=== PATIENT | female | born 1995 | race Caucasian/White ===

== ENCOUNTER → 2019-07-07 | Emergency (ER) | payer SELFPAY | PROVIDERS: Emergency Provider Family Medicine; Visit Provider Family Medicine | DX: K59.00 Constipation, unspecified (principal); F17.210 Nicotine dependence, cigarettes, uncomplicated | CPT/HCPCS: 74018; 99283 ==

== ENCOUNTER 2019-09-13 10:54 | Emergency (ER) | payer MEDICAID, SELFPAY ==
[2019-09-13 11:11] VITALS: BP 151/100; RESP 16; TEMP 36.8; O2SAT 100; BMI 46.3
[2019-09-13 11:47] LABS: Bilirubin Urine Neg (NEGATIVE); Blood Urine Neg (Negative); Glucose Urine UA Norm (Normal); Ketones Urine Negative (Negative); Leukocyte Esterase Urine Negative (Negative); Nitrate Urine Negative (Negative); Protein Urine Neg (Negative); Urine Appearance Clear (CLEAR); Urine Color Yellow (Yellow); Urobilinogen Urine Norm (Negative); pH Urine 7 (5-7)
[2019-09-13 11:53] LABS: Add Urine Culture? No; Bacteria Urine TRACE; Squamous Epithelial Cell Urine 0-4 (0-5)
[2019-09-13 12:36] LABS: Basophils # 0.1 10^3/uL (0.0-0.1); Basophils % 0.4 %; Eosinophils # 0.4 10^3/uL (0.0-0.8); Eosinophils % 2.9 %; Hemoglobin 13.7 g/dL (11.5-15.3); Lymphocytes # 3.8 10^3/uL (0.8-4.8); Lymphocytes % 26.2 %; Mean Corpuscular HGB Conc 32.6 g/dL (30.0-36.0); Mean Corpuscular Volume 85.7 fL (81-99); Mean Platelet Volume 10.3 fL (7.4-10.4); Monocytes # 0.9 10^3/uL (0.2-0.9); Neutrophils # 9.4 10^3/uL (1.8-7.7); Neutrophils % 64.2 %; Nucleated Red Blood Cells % 0 %; Platelet Count 321 10^3/cmm (130-400); Red Cell Distribution Width 14.6 % (12.1-15.1); White Blood Count 14.6 10^3/uL (4.0-10.0)
--- NOTE | 2019-09-13 12:50 | ED_ITS ---
Entered by Aubree Mario, acting as scribe for Itzel Forde Pio Sep 13, 2019 10:54 HPI - Abdominal Pain General: Chief Complaint: Abdominal Pain Stated Complaint: ABD PAIN Time Seen by Provider: 09/13/19 12:49 Source: patient Mode of arrival: ambulatory Limitations: no limitations History of Present Illness: HPI narrative: 24 yo Female presents to ED with complaint of lower abdominal pain that radiates into her lower back and then up her back. Pt states that she has PCOS and just assumed it was her PCOS acting up. Pt states that laying down on her left side, putting a pillow between her knees, and having heat on her constantly is that only thing that gives her relief. Pt states that she believes was an abnormal period recently. Pt states that she has had to have surgery in the past for her PCOS. Pt states that she took some Tylenol before she came in so her pain isn't too bad right now but she came in because she is starting to miss work due to the pain. MD elicited complaint: abdominal pain Pertinent past history: other (PCOS) Onset (ago): week(s) (2) Pain Consistency: intermittent Location: RLQ and LLQ Pain scale (0-10): 4 Quality: stabbing, aching, sharp and dull Radiation: back Migration to: L flank and R flank Relieving factors: rest (laying on left side with pillow between knees) and other (applying heat) Context: history of similar episodes Associated Symptoms: Denies chills, coffee ground emesis, constipation, GI cramping, diarrhea, dysuria, fever(s), hematochezia, hematuria, hematemesis, melena, nausea, syncope and vomiting Related Data: Date of Last Menstrual Period: 08/14/19 Review of Systems General: Reports: other (negative unless marked) Const: Denies: fever, chills, body aches, fatigue, malaise or diaphoresis Eyes: Denies: change in vision or blurry vision ENMT: Denies: throat pain, painful swallowing, hoarseness, ear pain, ear discharge, Change in hearing or nasal discharge Card: Denies: chest pain, palpitations, irregular heart rhythm, syncope, pre- syncope, shortness of breath on exertion or shortness of breath when lying down Resp: Denies: shortness of breath, productive cough, non-productive cough, wheezing, coughing up blood or chest congestion GI: Reports: abdominal pain; Denies: nausea, vomiting, vomiting blood, coffee grounds in vomit, diarrhea, constipation, cramping, blood in stool or black tarry stool : Reports: flank pain and pelvic pain; Denies: painful urination, urinary frequency, urinary urgency, decreased urine ouput, urinary incontinence or blood in urine Musc: Denies: neck pain, back pain, extremity pain, extremity swelling, joint pain, joint swelling, joint warmth or joint stiffness Skin/Breast: Denies: rash, skin tenderness or yellow skin Neuro: Denies: headache, numbness in extremities, weakness in extremities, changes in sensation, lack of coordination, difficulty walking, dizziness, vertigo or confusion Endo: Denies: excessive thirst, tired all the time, cold intolerance, excessive sweating, flushing or hot flashes Ethan/Lymph: Denies: easy bruising, easy bleeding, petechiae or enlarged lymph nodes All/Imm: Denies: hives, throat swelling, tongue swelling, facial swelling or acute wheezing PFSH ED PFSH: Medical History PCOS (polycystic ovarian syndrome) Surgical History History of Social History Smoking and tobacco status: current every day smoker Female Reproductive History: Date of last menstrual period: 08/14/19 Physical Exam Const: COMMON NORMALS: no apparent distress, oriented x3, no limitations, healthy appearing and well nourished EXAM LIMITATIONS: no altered mental status GENERAL APPEARANCE: cooperative, well kempt and well developed ORIENTATION/CONSCIOUSNESS: Yes awake HENMT: COMMON NORMALS: normocephalic, head/scalp atraumatic, hearing grossly normal bilaterally, external ears normal, EAC's normal, external nose normal and moist oral mucous membranes HEAD & SCALP: normal to inspection, normocephalic and atraumatic FACE & SINUS: normal facial exam and face symmetric NOSE: external nose normal and nares normal EXTERNAL EAR: Yes external ears normal EXTERNAL AUDITORY CANAL: EAC's normal MOUTH: oral and palatal mucosa normal and tongue normal Eye: COMMON NORMALS: PERRL, EOMs intact bilaterally, conjunctivae normal and no scleral icterus GENERAL EYE: normal appearance of both eyes and normal light reflex CONJUNCTIVA: Yes conjunctivae normal SCLERA: sclerae normal CORNEA: Yes corneas normal PUPIL: Yes PERRL DIRECT OPHTHALMOSCOPY: Yes normal light reflex Neck/C-Spine: COMMON NORMALS: full ROM, no lymphadenopathy, supple, no meningeal signs and no JVD GENERAL: Yes normal visual inspection and Yes trachea midline CERVICAL SPINE: Yes cervical ROM normal Chest: COMMONS NORMALS: inspection of chest normal and palpation of chest normal Resp: COMMON NORMALS: normal respiratory effort, no retractions, no use of accessory muscles and clear to auscultation bilaterally EFFORT & INSPECTION: Yes able to speak in complete sentences AUSCULTATION: clear to auscultation bilaterally Cardio: COMMON NORMALS: no JVD, regular rate, regular rhythm, S1 normal heart sound, S2 normal heart sound, no gallops, no clicks, no murmurs and no rub JUGULAR VENOUS DISTENTION: no JVD RATE: regular rate RHYTHM: regular rhythm HEART SOUNDS: S1 normal and S2 normal GI: COMMON NORMALS: soft to palpation, non-tender, no hepatosplenomegaly and no masses INSPECTION: Yes normal to inspection PALPATION: Yes soft and Yes no hepatosplenomegaly : COMMON NORMALS: Yes no CVA tenderness BLADDER/KIDNEY EXAM: Yes no CVA tenderness Back/Pelvis: COMMON NORMALS: no CVA tenderness, thoracic and lumbar spine normal to inspection, no thoracic nor lumbar tenderness and thoraco-lumbar ROM normal Extremity: COMMON NORMALS: normal to inspection, full ROM, normal capillary refill, no joint enlargement, no clubbing, cyanosis or edema and no calf tenderness Neuro: COMMON NORMALS: oriented x3, CN's II-XII intact bilaterally, moves all extremities, no focal motor deficits and no sensory deficits noted MENINGEAL SIGNS: Yes no meningeal signs Psych: COMMON NORMALS: mental status grossly normal, thought process normal, cooperative, affect normal, speech normal and activity/motor behavior normal APPEARANCE: Yes well kempt SPEECH: Yes normal speech THOUGHT PROCESS: normal thought process Skin: COMMON NORMALS: no rashes or lesions noted, skin turgor normal, no jaundice, no petechiae and no mottling GENERAL SKIN EXAM: no rashes or lesions noted and turgor normal Course ED course: 12:54 Patient is declining an IV at this time. Vital Signs: Vital signs: Vital Signs Temperature 98.3 F 09/13/19 11:11 Respiratory Rate 16 09/13/19 11:11 Blood Pressure 151/100 09/13/19 11:11 Pulse Oximetry 98 09/13/19 12:56 MDM - Abdominal Pain MDM Narrative: Medical decision making narrative: Navin is a 24-year-old female who comes in complaining of lower abdominal pain. She states this pain is similar as she had polycystic ovary problems in the past. She denies any vaginal discharge or bleeding. She has no dysuria but does have occasional urinary frequency. Patient's ultrasound was unremarkable except for a small left ovarian cyst. There is no evidence of torsion. The patient had elevated white count but no fever. The pain was bilateral and radiated to her back and upper sides. I informed her that we should do a CT scan to rule out appendicitis amongst other issues but she refuses. She stated that she had to get back to work and I offered to write her a work excuse but she states [employer] will not accept these and she is feeling tremendously better after her Toradol shot and wants to be discharged. She had been upfront that she did not want to have much done. She understands the seriousness of appendicitis and she states if her pain returns or worsen she will return but at this time she wants to leave. I did inform her of the risks of leaving AGAINST MEDICAL ADVICE including or severe permanent disability or severe ongoing problems in her abdomen from a ruptured abscess or appendicitis and she states she understands these risks but will return if she feels worse. Lab Data: Labs: Lab Results 09/13/19 09/13/19 09/13/19 Range/Units 11:22 11:22 12:29 WBC 14.6 H (4.0-10.0) 10^3/ uL RBC 4.90 (4.1-5.3) 10^6/u L Hgb 13.7 (11.5-15.3) g/dL Hct 42.0 (37.0-47.0) % MCV 85.7 (81-99) fL MCH 28.0 (28.0-34.0) pg MCHC 32.6 (30.0-36.0) g/dL RDW 14.6 (12.1-15.1) % Plt Count 321 (130-400) 10^3/c mm MPV 10.3 (7.4-10.4) fL Neut % (Auto) 64.2 % Lymph % (Auto) 26.2 % Gooding % (Auto) 6.0 % Eos % (Auto) 2.9 % Baso % (Auto) 0.4 % Neut # (Auto) 9.4 H (1.8-7.7) 10^3/u L Lymph # (Auto) 3.8 (0.8-4.8) 10^3/u L Gooding # (Auto) 0.9 (0.2-0.9) 10^3/u L Eos # (Auto) 0.4 (0.0-0.8) 10^3/u L Baso # (Auto) 0.1 (0.0-0.1) 10^3/u L Nucleated RBC % (a uto) 0 % Nucleated RBCs # 0.0 /100WBC Sodium (136-145) mmol/L Potassium (3.5-5.1) mmol/L Chloride (98-107) mmol/L Carbon Dioxide (22-29) mmol/L Anion Gap (5-19) BUN (6-20) mg/dL Creatinine (0.5-0.9) mg/dL GFR Calculation (90-130) mL/min Glucose (65-115) mg/dL Calculated Osmolal ity (285-295) mOsm/k g Calcium (8.5-10.5) mg/dL Total Bilirubin (0.15-1.2) mg/dL AST (0-32) U/L ALT (0-33) U/L Alkaline Phosphata se (35-105) IU/L Total Protein (6.6-8.7) g/dL Albumin (3.5-5.2) g/dL Globulin (1.3-4.6) g/dL Lipase (13-60) U/L HCG, Qual Negative (Negative) Urine Color Yellow (Yellow) Urine Appearance Clear (CLEAR) Urine pH 7 (5-7) Ur Specific Gravit y 1.010 (1.005-1.030) Urine Protein Neg (Negative) Urine Glucose (UA) Norm (Normal) Urine Ketones Negative (Negative) Urine Blood Neg (Negative) Urine Nitrate Negative (Negative) Urine Bilirubin Neg (NEGATIVE) Urine Urobilinogen Norm (Negative) mg/dL Ur Leukocyte Vero ase Negative (Negative) Urine RBC None (0-2) /hpf Urine WBC None (0-5) /hpf Ur Squamous Epith Cells 0-4 H (0-5) Urine Bacteria Trace (NONE) 09/13/19 Range/Units 12:29 WBC (4.0-10.0) 10^3/ uL RBC (4.1-5.3) 10^6/u L Hgb (11.5-15.3) g/dL Hct (37.0-47.0) % MCV (81-99) fL MCH (28.0-34.0) pg MCHC (30.0-36.0) g/dL RDW (12.1-15.1) % Plt Count (130-400) 10^3/c mm MPV (7.4-10.4) fL Neut % (Auto) % Lymph % (Auto) % Gooding % (Auto) % Eos % (Auto) % Baso % (Auto) % Neut # (Auto) (1.8-7.7) 10^3/u L Lymph # (Auto) (0.8-4.8) 10^3/u L Gooding # (Auto) (0.2-0.9) 10^3/u L Eos # (Auto) (0.0-0.8) 10^3/u L Baso # (Auto) (0.0-0.1) 10^3/u L Nucleated RBC % (a uto) % Nucleated RBCs # /100WBC Sodium 137 (136-145) mmol/L Potassium 4.1 (3.5-5.1) mmol/L Chloride 100 (98-107) mmol/L Carbon Dioxide 26 (22-29) mmol/L Anion Gap 15.1 (5-19) BUN 14 (6-20) mg/dL Creatinine 0.7 (0.5-0.9) mg/dL GFR Calculation 102.8 (90-130) mL/min Glucose 87 (65-115) mg/dL Calculated Osmolal ity 280 L (285-295) mOsm/k g Calcium 10.3 (8.5-10.5) mg/dL Total Bilirubin 0.2 (0.15-1.2) mg/dL AST 14 (0-32) U/L ALT 15 (0-33) U/L Alkaline Phosphata se 114 H (35-105) IU/L Total Protein 7.9 (6.6-8.7) g/dL Albumin 4.2 (3.5-5.2) g/dL Globulin 3.7 (1.3-4.6) g/dL Lipase 32 (13-60) U/L HCG, Qual (Negative) Urine Color (Yellow) Urine Appearance (CLEAR) Urine pH (5-7) Ur Specific Gravit y (1.005-1.030) Urine Protein (Negative) Urine Glucose (UA) (Normal) Urine Ketones (Negative) Urine Blood (Negative) Urine Nitrate (Negative) Urine Bilirubin (NEGATIVE) Urine Urobilinogen (Negative) mg/dL Ur Leukocyte Vero ase (Negative) Urine RBC (0-2) /hpf Urine WBC (0-5) /hpf Ur Squamous Epith Cells (0-5) Urine Bacteria (NONE) Imaging Data ^: US Pelvic/Transvag: Radiologist's impression: [address] [address] Ultrasound Report Signed Patient: Navin Mejia #: [id number] : 1995Acct#:[id number] Age/Sex: 24 / FADM Date: 09/13/19 Loc: ERRoom/Bed: Attending Dr: Ordering Provider/Ordering MD: Itzel Forde DO Date of Service: 09/13/19 Procedure(s): US pelvic with transvaginal Accession Number(s): [id number] Report Number: [id number] WS: [id number] PELVIC ULTRASOUND REASON FOR VISIT: Pain TECHNIQUE: Grayscale and Doppler transabdominal and transvaginal pelvic ultrasound. FINDINGS: Transvaginal transabdominal evaluation Uterus measures 6.7 cm x 4.8 cm x 4.0 cm, right ovary measures 3.3 cm x 2.1 cm x 2.2 cm, and left ovary measures 2.6 cm x 2.8 cm x 2.1 cm. Endometrium measures 0.86 m. The left ovary shows a cystic area measures 1.38 x 1.10 x 1.76 cm. The right ovary shows numerous follicles. No free fluid in the pelvis. US/US pelvic with transvaginal IMPRESSION: Small ovarian cyst left ovary The uterus is normal slightly thickened endometrium. Dictated By:Atilio Sanders DO Signed By:Atilio Sanders DOSigned Date/Time:09/13/19 1341 DD/ 1338 Discharge Plan Discharge Patient Disposition: Home, Self-Care Clinical Impression: Abdominal pain Qualifiers: Abdominal location: lower abdomen, unspecified Qualified Code(s): R10.30 - Lower abdominal pain, unspecified Condition: Stable Discharge Orders: Discharge Order (Routine); Ordered 09/13/19 Ordered By: Itzel Forde Referrals: [facility] [Other] Gerardo Monte MD [Physician] - 1-3 days Jamshid Gandara MD [Physician] - 1-3 days Discharge Diet: Advance as tolerated Discharge Activity: Increase activity as tolerated Patient Instructions: Cholecystitis (ED), Abdominal Pain (ED) Activity Restrictions/Additional Instructions: You're leaving AGAINST MEDICAL ADVICE and are at risk for or severe permanent disability by doing so. You are more than welcome to return at any time for recheck and for further evaluation and care suture change you change your mind. Appendicitis among other issues are still a possibility for your symptoms and your work-up is not complete. If you change your mind or your symptoms change/worsen you are more than welcome to return at any time. Stand Alone Forms: Against Medical Advice Coding Level of Care Code ED Addiction Specialist for Chg Fwd Exam Comprehensive The documentation recorded by the Shelbi colmenares Carmen, accurately reflects the service I personally performed and the decisions made by Eula vasquez Eli N Sep 13, 2019 10:54
--- NOTE | 2019-09-13 12:54 | US_ITS ---
WS: [id number] PELVIC ULTRASOUND REASON FOR VISIT: Pain TECHNIQUE: Grayscale and Doppler transabdominal and transvaginal pelvic ultrasound. FINDINGS: Transvaginal transabdominal evaluation Uterus measures 6.7 cm x 4.8 cm x 4.0 cm, right ovary measures 3.3 cm x 2.1 cm x 2.2 cm, and left ova ry measures 2.6 cm x 2.8 cm x 2.1 cm. Endometrium measures 0.86 m. The left ovary shows a cystic area measures 1.38 x 1.10 x 1.76 cm. The right ovary shows numerous follicles. No free fluid in the pelvis. US/US pelvic with transvaginal IMPRESSION: Small ovarian cyst left ovary The uterus is normal slightly thickened endometrium.
[2019-09-13 12:56] VITALS: O2SAT 98
[2019-09-13 12:56] LABS: Alanine Aminotransferase 15 U/L (0-33); Albumin Level 4.2 g/dL (3.5-5.2); Alkaline Phosphatase 114 IU/L (35-105); Anion Gap 15.1 (5-19); Aspartate Amino Transferase 14 U/L (0-32); Blood Urea Nitrogen 14 mg/dL (6-20); Calcium 10.3 mg/dL (8.5-10.5); Carbon Dioxide 26 mmol/L (22-29); Chloride 100 mmol/L (98-107); Globulin 3.7 g/dL (1.3-4.6); Glomerular Filtration Rate 102.8 mL/min (90-130); Glucose 87 mg/dL (65-115); Lipase 32 U/L (13-60); Osmolality Calculated 280 mOsm/kg (285-295); Potassium 4.1 mmol/L (3.5-5.1); Sodium 137 mmol/L (136-145); Total Bilirubin 0.2 mg/dL (0.15-1.2); Total Protein 7.9 g/dL (6.6-8.7)
[2019-09-13] MEDS: ketorolac 60 mg/2 mL INJ IM (13:04)
[2019-09-13 13:07] LABS: HCG Qualitative Urine. Negative (Negative)
[2019-09-13 14:37] VITALS: BP 132/80; PULSE 77; RESP 20; O2SAT 99
== END 2019-09-13 14:37 | disposition home or self-care (01) ==
PROVIDERS: Emergency Provider Emergency Medicine
DX: R10.32 Left lower quadrant pain (principal); R10.31 Right lower quadrant pain; E28.2 Polycystic ovarian syndrome; F17.200 Nicotine dependence, unspecified, uncomplicated; Z53.29 Procedure and treatment not carried out because of patient's decision for other reasons
CPT/HCPCS: 12345; 36415; 76830; 76856; 80053; 81001; 81025; 83690; 85025; 96372; 96374; 99282; 99283; J1885

== ENCOUNTER 2019-09-13 19:07 | Emergency (ER) | payer MEDICAID, SELFPAY ==
[2019-09-13 19:21] VITALS: BP 167/105; PULSE 99; RESP 18; TEMP 36.4; O2SAT 100; BMI 46.3
--- NOTE | 2019-09-13 19:50 | ED_ITS ---
Entered by Lisset Scott, acting as scribe for HPI - Abdominal Pain General: Chief Complaint: Abdominal Pain Stated Complaint: abd pain Time Seen by Provider: 09/13/19 19:49 Source: patient Mode of arrival: ambulatory Limitations: no limitations History of Present Illness: HPI narrative: 24 yo f came to the er for abd pain. Pt was seen here earlier here in the er for abd pain. Pt states that her pcos is acting up on the lower rt side. Pt has been having a productive cough and sneezing as well so she believes that has caused her pcos to flare up. She states that the pain is in the lower part of her right quad. MD elicited complaint: abdominal pain Onset (ago): day(s) (today) Location: RLQ Severity: mild Quality: sharp Radiation: none Migration to: no migration Exacerbating factors: nothing Relieving factors: nothing Associated Symptoms: Reports nausea and vomiting; Denies chills, dysuria, fever(s), hematochezia, hematuria and melena Related Data: Date of Last Menstrual Period: 08/14/19 Review of Systems General: Reports: other (negative unless marked) Const: Denies: fever or chills Eyes: Denies: change in vision or blurry vision ENMT: Reports: post nasal drip and facial/sinus pain; Denies: painful swallowing, dental pain, Change in hearing or nose bleeds Card: Denies: chest pain, palpitations, irregular heart rhythm or edema Resp: Reports: productive cough and other (sneezing) GI: Reports: abdominal pain, nausea and vomiting; Denies: blood in stool or black tarry stool : Denies: painful urination, urinary frequency, urinary urgency or blood in urine Musc: Denies: neck pain, back pain, redness or joint warmth Skin/Breast: Denies: rash, itching or redness Neuro: Denies: headache, dizziness or vertigo Psych: Denies: anxiety PFSH ED PFSH: Medical History PCOS (polycystic ovarian syndrome) Surgical History History of Social History Smoking and tobacco status: current every day smoker Female Reproductive History: Date of last menstrual period: 08/14/19 Physical Exam Const: GENERAL APPEARANCE: well developed ORIENTATION/CONSCIOUSNESS: Yes oriented to person, Yes oriented to place and Yes oriented to time HENMT: COMMON NORMALS: external ears normal and external nose normal FACE & SINUS: normal facial exam NOSE: external nose normal and no nasal discharge EXTERNAL EAR: Yes external ears normal MOUTH: tongue normal THROAT: posterior oropharynx normal; no peritonsillar mass Eye: COMMON NORMALS: PERRL, EOMs intact bilaterally and conjunctivae normal EYELID: eyelids normal CONJUNCTIVA: Yes conjunctivae normal PUPIL: Yes PERRL Neck/C-Spine: GENERAL: No tracheal deviation Chest: COMMONS NORMALS: inspection of chest normal CHEST: No tenderness Resp: COMMON NORMALS: clear to auscultation bilaterally EFFORT & INSPECTION: No tachypneic, No respiratory distress, No retractions, No uses accessory muscles and No tracheal deviation AUSCULTATION: clear to auscultation bilaterally, no rhonchi, no wheezes and lung sounds not diminished Cardio: COMMON NORMALS: regular rate and regular rhythm RATE: regular rate RHYTHM: regular rhythm HEART SOUNDS: no murmurs PERIPHERAL PULSES: radial pulses present GI: INSPECTION: No abdominal distension AUSCULTATION: No hyperactive bowel sounds and No hypoactive bowel sounds PALPATION: Yes tender Details: RLQ, No guarding and No rigid PERCUSSION: no dullness to percussion and no tympanic to percussion Neuro: SENSORIUM/ORIENTATION: Yes oriented to person, Yes oriented to place and Yes oriented to time Psych: COMMON NORMALS: mental status grossly normal Skin: COMMON NORMALS: no rashes or lesions noted GENERAL SKIN EXAM: no rashes or lesions noted Course Vital Signs: Vital signs: Vital Signs Temperature 97.5 F L 09/13/19 19:21 Pulse Rate 99 09/13/19 19:21 Respiratory Rate 16 09/13/19 22:26 Blood Pressure 167/105 09/13/19 19:21 Pulse Oximetry 100 09/13/19 19:21 MDM - Abdominal Pain MDM Narrative: Medical decision making narrative: 24-year-old female who had presented earlier in the day with right lower quadrant pain. She was found to have leukocytosis. She declined a CT scan because she had a with a work. She returns today still in pain. CT is essentially normal. Her chest x-ray, done for congestion is normal as well. She states that she has had cough and congestion for 2 weeks with sputum production. She will be placed on antibiotics for this. Imaging Data ^: CT Abd/Pel: Radiologist's impression: [facility] [address] [place] [address] CT Scan Report Signed Patient: Navin Mejia #: [id number] : 1995Acct#:[id number] Age/Sex: 24 / FADM Date: 09/13/19 Loc: ERRoom/Bed: Attending Dr: Ordering Provider/Ordering MD: Moose Barrios DO Date of Service: 09/13/19 Procedure(s): CT abdomen pelvis w con* [id number] Accession Number(s): [id number] Report Number: [id number] PROCEDURE INFORMATION: Exam: CT Abdomen And Pelvis With Contrast Exam date and time: 09/13/2019 8:40 PM Age: 24 years old Clinical indication: Abdominal pain; Localized; Right lower quadrant (rlq); Prior surgery; Surgery date: 6+ months; Surgery type: C-sect; Patient HX: C/O rlq abd pain w HX of pcos TECHNIQUE: Imaging protocol: Computed tomography of the abdomen and pelvis with intravenous contrast. Total DLP: 2003.67 mGy-cm Radiation optimization: All CT scans at this facility use at least one of these dose optimization techniques: automated exposure control; mA and/or kV adjustment per patient size (includes targeted exams where dose is matched to clinical indication); or iterative reconstruction. Contrast material: OMNI 300; Contrast volume: 95 ml; Contrast route: 20G; COMPARISON: US pelvic with transvaginal 09/13/2019 1:02 PM FINDINGS: Liver: Unremarkable. No mass. Gallbladder and bile ducts: Normal. No calcified stones. No ductal dilation. Pancreas: Normal. No ductal dilation. Spleen: Normal. No splenomegaly. Adrenals: Normal. No mass. Kidneys and ureters: Normal. No hydronephrosis. Stomach and bowel: Unremarkable. No obstruction. No mucosal thickening. Appendix: No evidence of appendicitis. Intraperitoneal space: Unremarkable. No free air. No significant fluid collection. Vasculature: Unremarkable. No abdominal aortic aneurysm. Lymph nodes: Unremarkable. No enlarged lymph nodes. Bladder: Unremarkable as visualized. Reproductive: Physiologic corpus luteal cyst left ovary. 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 Soft tissues: Unremarkable. Other findings: Obesity. CT/CT abdomen pelvis w con* [id number] IMPRESSION: No visible evidence of active or acute abdominal or pelvic pathologic process. Radiation Dose CTDIVOL = (mGy): DLP = 2003.67 (mGy-cm) Dictated By:Nelson Marrufo Signed By:Luca Marrufo Date/Time:09/13/192137 DD/ 34 Discharge Plan Discharge Patient Disposition: Home, Self-Care Clinical Impression: Abdominal pain Qualifiers: Abdominal location: right lower quadrant Qualified Code(s): R10.31 - Right lower quadrant pain Condition: Stable Prescriptions: New ketorolac 10 mg tablet 10 mg PO Q6H Qty: 10 RF: 0 Zofran 4 mg tablet 4 mg PO Q6H PRN (Reason: nausea and vomiting) Qty: 10 RF: 0 No Action phentermine 37.5 mg tablet 35.7 mg PO DAILY RF: 0 Nasal Dawson Sinus 0.05 % Dawson,Non-Aerosol 2 spray INTRANASAL Q12H PRN (Reason: Nasal Congestion) RF: 0 Discharge Orders: Discharge Order (Routine); Ordered 09/13/19 Ordered By: Moose Barrios Referrals: [facility] [Other] Mandy Mcdermott FNP [Primary Care Provider] - 4-7 days Discharge Diet: Usual diet Discharge Activity: Increase activity as tolerated Patient Instructions: Cholecystitis (ED), Abdominal Pain (ED) Activity Restrictions/Additional Instructions: Return for fever greater than 100, vomiting liquids or medications, worsening pain despite treatment, other concerning symptoms Discharge Date/Time: 09/13/19 22:27 Coding Level of Care Code ED Implementation Project Manager for Chg Fwd The documentation recorded by the Tyler colmenares Stephanie Lyn, accurately reflects the service I personally performed and the decisions made by Denis vasquez Jeremy John, DO Sep 13, 2019 19:07
--- NOTE | 2019-09-13 20:02 | XRR_ITS ---
PROCEDURE INFORMATION: Exam: XR Chest, 2 Views Exam date and time: 09/13/2019 8:52 PM Age: 24 years old Clinical indication: Cough TECHNIQUE: Imaging protocol: XR of the chest Views: 2 views. COMPARISON: CR Chest 2 views* [id number] 03/08/2017 5:26 PM FINDINGS: Lungs: Unremarkable. No consolidation. Pleural space: Unremarkable. No pleural effusion. No pneumothorax. Heart/Mediastinum: Unremarkable. No cardiomegaly. Bones/joints: Unremarkable. XR/XR chest 2V* [id number] IMPRESSION: No acute findings.
[2019-09-13] MEDS: ondansetron 2 mg/ML SDV 2 mL 4 MG IVP (20:09)
[2019-09-13] MEDS: ketorolac 30 mg/mL INJ IVP (20:11)
[2019-09-13] MEDS: iohexol 300 mg/mL 100 mL Btl IV (20:41)
[2019-09-13 22:26] VITALS: RESP 16
== END 2019-09-13 22:27 | disposition home or self-care (01) ==
PROVIDERS: Emergency Provider Emergency Medicine; PCP Registered Nurse
DX: R10.31 Right lower quadrant pain (principal); F17.200 Nicotine dependence, unspecified, uncomplicated
CPT/HCPCS: 12345; 71046; 74177; 96374; 96375; 99281; 99283; J1885; J2405; Q9967

== ENCOUNTER 2019-09-26 13:43 | Emergency (ER) | payer MEDICAID, SELFPAY ==
[2019-09-26 13:51] VITALS: BMI 47.2
[2019-09-26 13:55] VITALS: BP 163/94; PULSE 87; RESP 18; TEMP 36.4; O2SAT 98
--- NOTE | 2019-09-26 14:08 | ED_ITS ---
HPI - Abdominal Pain General: Chief Complaint: Abdominal Pain Stated Complaint: OVARIAN PAIN/PREG Time Seen by Provider: 09/26/19 13:56 Related Data: Date of Last Menstrual Period: 08/14/19 PFS ED PFSH: Social History Smoking and tobacco status: current every day smoker Female Reproductive History: Date of last menstrual period: 08/14/19 Course Vital Signs: Vital signs: Vital Signs Temperature 97.6 F 09/26/19 13:55 Pulse Rate 87 09/26/19 13:55 Respiratory Rate 18 09/26/19 13:55 Blood Pressure 163/94 09/26/19 13:55 Pulse Oximetry 98 09/26/19 13:55 Discharge Plan Discharge Prescriptions: No Action phentermine 37.5 mg tablet 35.7 mg PO DAILY RF: 0 Nasal [place] Sinus 0.05 % [place],Non-Aerosol 2 spray INTRANASAL Q12H PRN (Reason: Nasal Congestion) RF: 0 ketorolac 10 mg tablet 10 mg PO Q6H Qty: 10 RF: 0 Zofran 4 mg tablet 4 mg PO Q6H PRN (Reason: nausea and vomiting) Qty: 10 RF: 0 Coding Level of Care Code ED 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
--- NOTE | 2019-09-26 14:08 | USR_ITS ---
PROCEDURE INFORMATION: Exam: US Duplex Artery or Vein of the Abdominal and/or Reproductive Organs, Limited Exam date and time: 09/26/2019 2:58 PM Age: 24 years old Clinical indication: complicated by abdominal or pelvic pain; Left lower quadrant; First trimester; Gestational age or lmp: Not sure lmp 1-30-20 to 2-7-20; ; Additional info: L pelvic pain; HX of pcos; TECHNIQUE: Imaging protocol: Real-time duplex ultrasound scan of the arterial or venous flow of the abdomen and/or reproductive organs, with color Doppler flow and spectral waveform analysis with image documentation. Exam focused on the region of clinical interest. Duplex images were received to evaluate vascular conditions. COMPARISON: US pelvic with transvaginal 09/13/2019 1:02 PM FINDINGS: Right adnexa: Normal duplex of the ovary. Normal Doppler waveforms and color flow. No evidence of ovarian torsion. Left adnexa: Normal duplex of the ovary. Normal Doppler waveforms and color flow. No evidence of ovarian torsion. IMPRESSION: Normal duplex of the ovaries. No evidence of ovarian torsion. PROCEDURE INFORMATION: Exam: US First Trimester, Transabdominal and US , Transvaginal Exam date and time: 09/26/2019 2:58 PM Age: 24 years old Clinical indication: complicated by abdominal or pelvic pain; Left lower quadrant; First trimester; Gestational age or lmp: Not sure lmp 1-30-20 to 2-7-20; ; Additional info: L pelvic pain; HX of pcos; TECHNIQUE: Imaging protocol: Real-time transabdominal obstetrical ultrasound of the maternal pelvis and a first trimester , less than 14 weeks 0 days, with image documentation. Transvaginal imaging was used for better evaluation of the fetus and adnexa. COMPARISON: US pelvic with transvaginal 09/13/2019 1:02 PM FINDINGS: The uterus measures 8.9 x 4.5 x 5.3 cm. There is a single endometrial cystic lesion with a mean sac diameter is 0.8 cm, corresponding to an estimated gestational age of 5 weeks, 5 days. The estimated gestational age based on the last menstrual period (August 06, 2019) is 7 weeks, 2 days. No definite pole or yolk sac is identified at this time. Both maternal ovaries are identified and demonstrate blood flow on Doppler interrogation. The right ovary measures 3.3 x 2 x 2.6 cm and the left ovary measures 2.8 x 2.3 x 2.9 cm. There is a 1.6 x 1.3 x 2.1 cm thick-walled cystic lesion in the left ovary, suggestive of a corpus luteum. There is no adnexal mass. No free fluid is seen in the pelvis. US/US OB <=14 wk fetus w transvag IMPRESSION: Small endometrial cystic lesion without appreciable pole or yolk sac at this time. Findings may be secondary to an early intrauterine gestation, however correlation with serial quantitative beta-hCG levels and close interval ultrasound followup is recommended to ensure a normal intrauterine gestation and exclude anembryonic and pseudo-gestational sac of ectopic .
[2019-09-26 14:23] LABS: Add Urine Microscopic? NO
[2019-09-26 14:27] LABS: Basophils # 0.1 10^3/uL (0.0-0.1); Basophils % 0.4 %; Eosinophils # 0.4 10^3/uL (0.0-0.8); Eosinophils % 2.7 %; Hematocrit 38.9 % (37.0-47.0); Hemoglobin 12.8 g/dL (11.5-15.3); Lymphocytes # 3.1 10^3/uL (0.8-4.8); Lymphocytes % 22.7 %; Mean Corpuscular HGB Conc 32.9 g/dL (30.0-36.0); Mean Corpuscular Hemoglobin 29.2 pg (28.0-34.0); Mean Corpuscular Volume 88.6 fL (81-99); Mean Platelet Volume 10.5 fL (7.4-10.4); Monocytes # 0.8 10^3/uL (0.2-0.9); Monocytes % 5.8 %; Neutrophils # 9.3 10^3/uL (1.8-7.7); Nucleated Red Blood Cells % 0 %; Platelet Count 284 10^3/cmm (130-400); Red Blood Count 4.39 10^6/uL (4.1-5.3); Red Cell Distribution Width 15.4 % (12.1-15.1); White Blood Count 13.7 10^3/uL (4.0-10.0)
[2019-09-26 14:29] LABS: Bilirubin Urine Neg (NEGATIVE); Blood Urine Neg (Negative); Glucose Urine UA Norm (Normal); Ketones Urine Negative (Negative); Leukocyte Esterase Urine Negative (Negative); Nitrate Urine Negative (Negative); Protein Urine Neg (Negative); Specific Gravity, Urine 1.005 (1.005-1.030); Urine Appearance Clear (CLEAR); Urine Color Yellow (Yellow); Urobilinogen Urine Norm (Negative); pH Urine 7 (5-7)
[2019-09-26 14:52] LABS: Alanine Aminotransferase 42 U/L (0-33); Albumin Level 4.3 g/dL (3.5-5.2); Alkaline Phosphatase 87 IU/L (35-105); Anion Gap 15.8 (5-19); Aspartate Amino Transferase 35 U/L (0-32); Blood Urea Nitrogen 10 mg/dL (6-20); Calcium 9.6 mg/dL (8.5-10.5); Carbon Dioxide 25 mmol/L (22-29); Chloride 101 mmol/L (98-107); Globulin 2.9 g/dL (1.3-4.6); Glomerular Filtration Rate 122.8 mL/min (90-130); Glucose 98 mg/dL (65-115); Osmolality Calculated 282 mOsm/kg (285-295); Potassium 3.8 mmol/L (3.5-5.1); Sodium 138 mmol/L (136-145); Total Bilirubin 0.2 mg/dL (0.15-1.2); Total Protein 7.2 g/dL (6.6-8.7)
--- NOTE | 2019-09-26 14:59 | ED_ITS ---
HPI - General: Chief complaint: Abdominal Pain Stated complaint: OVARIAN PAIN/PREG Time Seen by Provider: 09/26/19 13:56 Source: patient Mode of arrival: ambulatory Limitations: no limitations History of Present Illness: HPI Narrative: Patient is a 24-year-old female with a history of PCOS here for complaints of left pelvis pain that began yesterday. Patient states she recently found out that she was and recently had this confirmed via blood work in her primary care office. Patient states she was vomiting yesterday and began feeling immediate sharp left-sided pains. Patient believes she may have ruptured a cyst. She is not having any vaginal bleeding. She has no complaints of vaginal odor, vaginal discharge, concern for STDs. MD Complaint: other (pelvic pain) Onset (ago): day(s) (yesterday) Pain Consistency: constant Location: pelvis Quality: Stabbing and Sharp Relieving factors: none Exacerbating factors: none Vaginal discharge: none Vaginal bleeding: none Date of Last Menstrual Period: 08/14/19 (unrealiable as pt states she does not have regular periods and often spots) Patient : Yes Associated symptoms: Reports nausea and vomiting; Deny abdominal pain, dysuria, headache(s) or vaginal discharge Review of Systems Const: Denies: fever, chills or body aches Card: Denies: chest pain Resp: Denies: shortness of breath GI: Reports: nausea and vomiting; Denies: abdominal pain, diarrhea, change in stool character, blood in stool, white/light colored stool or fatty stool : Reports: pelvic pain; Denies: flank pain, difficulty urinating, painful urination, urinary frequency, urinary urgency, urinary hesitancy, blood in urine, genital lesion, genital itching, vaginal odor, vaginal bleeding or vaginal discharge Musc: Denies: neck pain or back pain Skin/Breast: Denies: rash Neuro: Denies: headache PFSH ED PFSH: Social History Smoking and tobacco status: current every day smoker Female Reproductive History: Date of last menstrual period: 08/14/19 (unrealiable as pt states she does not have regular periods and often spots) Physical Exam Const: COMMON NORMALS: no apparent distress, oriented x3, no limitations and alert NUTRITIONAL APPEARANCE: obese morbidly obese Resp: COMMON NORMALS: normal respiratory effort and clear to auscultation bilaterally AUSCULTATION: clear to auscultation bilaterally Cardio: COMMON NORMALS: regular rate and regular rhythm RATE: regular rate RHYTHM: regular rhythm GI: COMMON NORMALS: normal to inspection, nondistended, normoactive bowel sounds, soft to palpation, no hepatosplenomegaly and no masses PALPATION: Yes soft, Yes tender (L lower pelvis) and Yes no hepatosplenomegaly : COMMON NORMALS: Yes no CVA tenderness BLADDER/KIDNEY EXAM: Yes no CVA tenderness Back/Pelvis: COMMON NORMALS: no CVA tenderness Extremity: COMMON NORMALS: normal to inspection Neuro: COMMON NORMALS: oriented x3 SENSORIUM/ORIENTATION: Yes alert Skin: COMMON NORMALS: no rashes or lesions noted GENERAL SKIN EXAM: no rashes or lesions noted Course Vital Signs: Vital signs: Vital Signs Temperature 97.6 F 09/26/19 13:55 Pulse Rate 85 09/26/19 16:40 Respiratory Rate 17 09/26/19 16:40 Blood Pressure 121/85 09/26/19 16:40 Pulse Oximetry 98 09/26/19 16:40 MDM - OB/Uterine Contractions MDM Narrative: Medical decision making narrative: Patient is not having any vaginal bleeding. Vital signs are stable. Labs are non-concerning. Patient states 2 days ago on 09/23 she had blood work in her PCPs office which showed an hCG of roughly 3000. 48 hours later she has an hCG of 6200 which is a good sign of a progressing . Ultrasound does show a cyst in her left ovary. There also is an additional cystic structure within the uterus with no definite pole or yolk sac identified-this correspond to an early IUP however could also be pseudo-gestational sac of ectopic . Pt will be set up with the women's clinic for OB care as her PCP does not do OB care. She is instructed to return to the ED immediately for any worsening pain. Lab Data: Labs: Lab Results 09/26/19 09/26/19 09/26/19 Range/Units 14:10 14:21 14:21 WBC 13.7 H (4.0-10.0) 10^3/ uL RBC 4.39 (4.1-5.3) 10^6/u L Hgb 12.8 (11.5-15.3) g/dL Hct 38.9 (37.0-47.0) % MCV 88.6 (81-99) fL MCH 29.2 (28.0-34.0) pg MCHC 32.9 (30.0-36.0) g/dL RDW 15.4 H (12.1-15.1) % Plt Count 284 (130-400) 10^3/c mm MPV 10.5 H (7.4-10.4) fL Neut % (Auto) 68.0 % Lymph % (Auto) 22.7 % [place] % (Auto) 5.8 % Eos % (Auto) 2.7 % Baso % (Auto) 0.4 % Neut # (Auto) 9.3 H (1.8-7.7) 10^3/u L Lymph # (Auto) 3.1 (0.8-4.8) 10^3/u L [place] # (Auto) 0.8 (0.2-0.9) 10^3/u L Eos # (Auto) 0.4 (0.0-0.8) 10^3/u L Baso # (Auto) 0.1 (0.0-0.1) 10^3/u L Nucleated RBC % (a uto) 0 % Nucleated RBCs # 0.0 /100WBC Sodium 138 (136-145) mmol/L Potassium 3.8 (3.5-5.1) mmol/L Chloride 101 (98-107) mmol/L Carbon Dioxide 25 (22-29) mmol/L Anion Gap 15.8 (5-19) BUN 10 (6-20) mg/dL Creatinine 0.6 (0.5-0.9) mg/dL GFR Calculation 122.8 (90-130) mL/min Glucose 98 (65-115) mg/dL Calculated Osmolal ity 282 L (285-295) mOsm/k g Calcium 9.6 (8.5-10.5) mg/dL Total Bilirubin 0.2 (0.15-1.2) mg/dL AST 35 H (0-32) U/L ALT 42 H (0-33) U/L Alkaline Phosphata se 87 (35-105) IU/L Total Protein 7.2 (6.6-8.7) g/dL Albumin 4.3 (3.5-5.2) g/dL Globulin 2.9 (1.3-4.6) g/dL Ser , Pura i-Qnt 6246.00 mIU/mL Urine Color Yellow (Yellow) Urine Appearance Clear (CLEAR) Urine pH 7 (5-7) Ur Specific Gravit y 1.005 (1.005-1.030) Urine Protein Neg (Negative) Urine Glucose (UA) Norm (Normal) Urine Ketones Negative (Negative) Urine Blood Neg (Negative) Urine Nitrate Negative (Negative) Urine Bilirubin Neg (NEGATIVE) Urine Urobilinogen Norm (Negative) mg/dL Ur Leukocyte Vero ase Negative (Negative) Blood Type Rho(D) Type 09/26/19 Range/Units 14:46 WBC (4.0-10.0) 10^3/ uL RBC (4.1-5.3) 10^6/u L Hgb (11.5-15.3) g/dL Hct (37.0-47.0) % MCV (81-99) fL MCH (28.0-34.0) pg MCHC (30.0-36.0) g/dL RDW (12.1-15.1) % Plt Count (130-400) 10^3/c mm MPV (7.4-10.4) fL Neut % (Auto) % Lymph % (Auto) % [place] % (Auto) % Eos % (Auto) % Baso % (Auto) % Neut # (Auto) (1.8-7.7) 10^3/u L Lymph # (Auto) (0.8-4.8) 10^3/u L [place] # (Auto) (0.2-0.9) 10^3/u L Eos # (Auto) (0.0-0.8) 10^3/u L Baso # (Auto) (0.0-0.1) 10^3/u L Nucleated RBC % (a uto) % Nucleated RBCs # /100WBC Sodium (136-145) mmol/L Potassium (3.5-5.1) mmol/L Chloride (98-107) mmol/L Carbon Dioxide (22-29) mmol/L Anion Gap (5-19) BUN (6-20) mg/dL Creatinine (0.5-0.9) mg/dL GFR Calculation (90-130) mL/min Glucose (65-115) mg/dL Calculated Osmolal ity (285-295) mOsm/k g Calcium (8.5-10.5) mg/dL Total Bilirubin (0.15-1.2) mg/dL AST (0-32) U/L ALT (0-33) U/L Alkaline Phosphata se (35-105) IU/L Total Protein (6.6-8.7) g/dL Albumin (3.5-5.2) g/dL Globulin (1.3-4.6) g/dL Ser , Pura i-Qnt mIU/mL Urine Color (Yellow) Urine Appearance (CLEAR) Urine pH (5-7) Ur Specific Gravit y (1.005-1.030) Urine Protein (Negative) Urine Glucose (UA) (Normal) Urine Ketones (Negative) Urine Blood (Negative) Urine Nitrate (Negative) Urine Bilirubin (NEGATIVE) Urine Urobilinogen (Negative) mg/dL Ur Leukocyte Vero ase (Negative) Blood Type A Negative Rho(D) Type Negative Imaging Data^: US TV pelvis: Radiologist's impression: [place] [id number] Ultrasound Report Signed Patient: Navin Mejia Unit #: [id number] : 1995 Age/Sex: 24 / F ADM Date: 09/26/19 Loc: ER Room/Bed: Attending Dr: Ordering Provider/Ordering MD: Юлия Whitney Date of Service: 09/26/19 Procedure(s): US OB <=14 wk fetus w transvag Accession Number(s): [id number] Report Number: [id number] PROCEDURE INFORMATION: Exam: US Duplex Artery or Vein of the Abdominal and/or Reproductive Organs, Limited Exam date and time: 09/26/2019 2:58 PM Age: 24 years old Clinical indication: complicated by abdominal or pelvic pain; Left lower quadrant; First trimester; Gestational age or lmp: Not sure lmp 1-30-20 to 2-7-20; ; Additional info: L pelvic pain; HX of pcos; TECHNIQUE: Imaging protocol: Real-time duplex ultrasound scan of the arterial or venous flow of the abdomen and/or reproductive organs, with color Doppler flow and spectral waveform analysis with image documentation. Exam focused on the region of clinical interest. Duplex images were received to evaluate vascular conditions. COMPARISON: US pelvic with transvaginal 09/13/2019 1:02 PM FINDINGS: Right adnexa: Normal duplex of the ovary. Normal Doppler waveforms and color flow. No evidence of ovarian torsion. Left adnexa: Normal duplex of the ovary. Normal Doppler waveforms and color flow. No evidence of ovarian torsion. IMPRESSION: Normal duplex of the ovaries. No evidence of ovarian torsion. PROCEDURE INFORMATION: Exam: US First Trimester, Transabdominal and US , Transvaginal Exam date and time: 09/26/2019 2:58 PM Age: 24 years old Clinical indication: complicated by abdominal or pelvic pain; Left lower quadrant; First trimester; Gestational age or lmp: Not sure lmp 1-30-20 to 2-7-20; ; Additional info: L pelvic pain; HX of pcos; TECHNIQUE: Imaging protocol: Real-time transabdominal obstetrical ultrasound of the maternal pelvis and a first trimester , less than 14 weeks 0 days, with image documentation. Transvaginal imaging was used for better evaluation of the fetus and adnexa. COMPARISON: US pelvic with transvaginal 09/13/2019 1:02 PM FINDINGS: The uterus measures 8.9 x 4.5 x 5.3 cm. There is a single endometrial cystic lesion with a mean sac diameter is 0.8 cm, corresponding to an estimated gestational age of 5 weeks, 5 days. The estimated gestational age based on the last menstrual period (August 06, 2019) is 7 weeks, 2 days. No definite pole or yolk sac is identified at this time. Both maternal ovaries are identified and demonstrate blood flow on Doppler interrogation. The right ovary measures 3.3 x 2 x 2.6 cm and the left ovary measures 2.8 x 2.3 x 2.9 cm. There is a 1.6 x 1.3 x 2.1 cm thick-walled cystic lesion in the left ovary, suggestive of a corpus luteum. There is no adnexal mass. No free fluid is seen in the pelvis. US/US OB <=14 wk fetus w transvag IMPRESSION: Small endometrial cystic lesion without appreciable pole or yolk sac at this time. Findings may be secondary to an early intrauterine gestation, however correlation with serial quantitative beta-hCG levels and close interval ultrasound followup is recommended to ensure a normal intrauterine gestation and exclude anembryonic and pseudo-gestational sac of ectopic . Dictated By: Syd Seaman MD Signed By: Syd Seaman MD Signed Date/Time: 09/26/19 160 DD/ 160 Discharge Plan Discharge Patient Disposition: Home, Self-Care Clinical Impression: Qualifiers: Weeks of gestation: less than 8 weeks Qualified Code(s): Z3A.01 - Less than 8 weeks gestation of Condition: Stable Prescriptions: No Action oxymetazoline [Nasal [place] Sinus] 0.05 % [place],Non-Aerosol 2 spray INTRANASAL Q12H PRN (Reason: Nasal Congestion) RF: 0 Discharge Orders: Discharge Order (Routine); Ordered 09/26/19 Ordered By: Юлия Whitney Referrals: [facility] [Other] Mandy Mcdermott FNP [Primary Care Provider] - Activity Restrictions/Additional Instructions: You need to return to the ED for worsening pain, vaginal bleeding, lighth eadedness/dizziness, or any other concerns you may have. Case management will work on getting you an [facility]. Discharge Date/Time: 09/26/19 16:40 Coding Level of Care Code ED Rn Medicare for Chg Fwd Exam Detailed
[2019-09-26 16:40] VITALS: BP 121/85; PULSE 85; RESP 17; O2SAT 98
--- NOTE | 2019-09-28 15:14 | DCPLANNER ---
spa manager/esthetician had message to schedule a follow up appointment for patient with [facility]. spa manager/esthetician called [facility], spoke with Sierra, gave clinic patients information. spa manager/esthetician was told that patients information would be printed and reviewed. Clinic will call field case manager and patient with appointment information.
--- NOTE | 2019-10-02 08:43 | DCPLANNER ---
Sierra from [facility] called pillowcase turner and stated that patient had an appointment scheduled for 10.01.19 for a repeat lab draw, after that was completed, results would be reviewed and a follow up appointment would be scheduled. Patient did attend the lab draw.
== END 2019-09-26 16:40 | disposition home or self-care (01) ==
PROVIDERS: Emergency Provider Physician Assistant; PCP Registered Nurse
DX: O26.891 Other specified pregnancy related conditions, first trimester (principal); R10.2 Pelvic and perineal pain; O21.9 Vomiting of pregnancy, unspecified; O99.89 Other specified diseases and conditions complicating pregnancy, childbirth and the puerperium; N83.202 Unspecified ovarian cyst, left side; F17.200 Nicotine dependence, unspecified, uncomplicated; Z3A.01 Less than 8 weeks gestation of pregnancy
CPT/HCPCS: 12345; 36415; 76801; 76817; 76830; 76856; 80053; 81003; 84702; 85025; 86900; 99282; A9270

== ENCOUNTER → 2019-10-01 11:51 | Outpatient (BNVA) | payer MEDICAID, SELFPAY | PROVIDERS: PCP Registered Nurse; Visit Provider Obstetrics & Gynecology | DX: Z34.90 Encounter for supervision of normal pregnancy, unspecified, unspecified trimester (principal) | CPT/HCPCS: 84702 ==

== ENCOUNTER 2019-10-03 07:29 | Emergency (ER) | payer MEDICAID, SELFPAY ==
[2019-10-03 07:36] VITALS: BP 126/95; PULSE 91; RESP 18; TEMP 36.9; O2SAT 100; BMI 48.0
--- NOTE | 2019-10-03 07:43 | ED_ITS ---
Entered by Andreea Arrington, acting as scribe for Rafat Hanna DO HPI - Extremity Problem General: Chief complaint: Extremity Injury, Lower Stated complaint: right foot pain Time Seen by Provider: 10/03/19 07:36 History of Present Illness: HPI Narrative: 24 yo female presents with right foot pain. Pt states that she has had this pain for 2 days. Pt states that she has walked on it for a few days. Denies any other injuries. No other injuries. She has been ambulatory without difficulty moderate amount of swelling. No other ongoing symptoms see review of systems. Patient reports she is . MD Complaint: extremity pain Associated symptoms: Deny chest pain, fever(s) or rash Review of Systems Const: Denies: fever, chills, body aches, fatigue, malaise or night sweats Eyes: Denies: change in vision or blurry vision ENMT: Denies: throat pain, oral sores/lesions, dental pain, nasal discharge or nasal congestion Card: Denies: chest pain, palpitations, irregular heart rhythm, edema, syncope, shortness of breath on exertion, shortness of breath when lying down or leg pain with exertion Resp: Denies: shortness of breath, productive cough, non-productive cough or wheezing GI: Denies: abdominal pain, nausea, vomiting, vomiting blood, coffee grounds in vomit, difficulty swallowing, heartburn/indigestion, diarrhea, constipation, cramping, blood in stool or black tarry stool : Denies: flank pain, painful urination, urinary frequency, urinary urgency, urinary incontinence or blood in urine Musc: Denies: neck pain, back pain, extremity pain, extremity swelling, joint pain or joint swelling Skin/Breast: Denies: rash, itching or redness Neuro: Denies: headache, numbness in extremities, weakness in extremities, changes in sensation, lack of coordination, difficulty walking, frequent falls, dizziness, vertigo or confusion Psych: Denies: anxiety, depression, loss of interest, visual hallucinations, auditory hallucinations, suicidal ideation or homicidal ideation Endo: Denies: excessive urination, excessive thirst, tired all the time or cold intolerance Ethan/Lymph: Denies: easy bruising, easy bleeding, petechiae, enlarged lymph nodes or tender lymph nodes PFSH ED PFSH: Social History (Reviewed 09/13/19 @ 20:04 by Lisset Michael Smoking and tobacco status: current every day smoker Female Reproductive History: Date of last menstrual period: 08/14/19 Physical Exam Const: COMMON NORMALS: average body habitus, oriented x3 and alert GENERAL APPEARANCE: cooperative, comfortable, well kempt and well developed NUTRITIONAL APPEARANCE: obese ORIENTATION/CONSCIOUSNESS: Yes awake, Yes oriented to person and Yes oriented to place Resp: COMMON NORMALS: normal respiratory effort, no retractions, no use of accessory muscles and clear to auscultation bilaterally AUSCULTATION: clear to auscultation bilaterally Cardio: COMMON NORMALS: regular rate and regular rhythm RATE: regular rate RHYTHM: regular rhythm HEART SOUNDS: no murmurs Extremity: COMMON NORMALS: no clubbing, cyanosis or edema, no calf tenderness and no pedal edema OTHER: Moderate swelling in the lateral malleolus no ecchymosis no deformity patient has good dorsi and plantar flexion good dorsalis pedis posterior tibialis pulses sensation normal. X-ray unremarkable Neuro: COMMON NORMALS: oriented x3 SENSORIUM/ORIENTATION: Yes alert, Yes oriented to person and Yes oriented to place Psych: APPEARANCE: Yes well kempt Skin: COMMON NORMALS: no rashes or lesions noted and skin turgor normal GENERAL SKIN EXAM: no rashes or lesions noted and turgor normal Course Vital Signs: Vital signs: Vital Signs Temperature 98.4 F 10/03/19 07:36 Pulse Rate 91 10/03/19 07:36 Respiratory Rate 17 10/03/19 08:16 Blood Pressure 126/95 10/03/19 07:36 Pulse Oximetry 97 10/03/19 08:16 MDM - Extremity (Nontraumatic) Imaging Data^: Other Xray: My impression: Right ankle no acute fracture Discharge Plan Discharge Patient Disposition: Home, Self-Care Clinical Impression: Ankle sprain and strain Condition: Stable Prescriptions: No Action DHA 200 mg capsule PO DAILY RF: 0 oxymetazoline [Nasal [place] Sinus] 0.05 % [place],Non-Aerosol 2 spray INTRANASAL Q12H PRN (Reason: Nasal Congestion) RF: 0 Discharge Orders: Discharge Order (Routine); Ordered 10/03/19 Ordered By: Rafat Hanna Referrals: Mandy Mcdermott FNP [Primary Care Provider] - Discharge Diet: Usual diet Discharge Activity: Increase activity as tolerated Patient Instructions: Ankle Sprain (ED) Discharge Date/Time: 10/03/19 08:17 Coding Level of Care Code ED Door Patcher for Chg Fwd Exam Comprehensive The documentation recorded by the Murphy colmenares Kialy, accurately reflects the service I personally performed and the decisions made by Cyndi vasquez Curtis L, DO Oct 03, 2019 07:29
--- NOTE | 2019-10-03 07:44 | XRR_ITS ---
PROCEDURE INFORMATION: Exam: XR Right Ankle Exam date and time: 10/03/2019 7:47 AM Age: 24 years old Clinical indication: Injury or trauma; Fall; Initial encounter; Blunt trauma; Ankle; Right; Additional info: Pain, trauma TECHNIQUE: Imaging protocol: XR Right ankle. Views: 3 or more views. COMPARISON: No relevant prior studies available. FINDINGS: Bones/joints: No fracture. No dislocation. The ankle mortise is intact. There is an accessory ossicle, an os trigonum. Soft tissues: No acute soft tissue abnormality. XR/XR ankle RT min 3V* [id number] IMPRESSION: No acute osseous abnormality.
[2019-10-03 07:48] VITALS: RESP 16
[2019-10-03 08:16] VITALS: RESP 17; O2SAT 97
== END 2019-10-03 08:17 | disposition home or self-care (01) ==
PROVIDERS: Emergency Provider Family Medicine; PCP Registered Nurse
DX: O9A.219 Injury, poisoning and certain other consequences of external causes complicating pregnancy, unspecified trimester (principal); S93.401A Sprain of unspecified ligament of right ankle, initial encounter; S96.911A Strain of unspecified muscle and tendon at ankle and foot level, right foot, initial encounter; O99.330 Smoking (tobacco) complicating pregnancy, unspecified trimester; X58.XXXA Exposure to other specified factors, initial encounter
CPT/HCPCS: 12345; 73610; 99281; 99282

== ENCOUNTER → 2019-10-05 15:19 | Outpatient (BNVA) | payer MEDICAID, SELFPAY | PROVIDERS: PCP Registered Nurse; Visit Provider Obstetrics & Gynecology Female Pelvic Medicine and Reconstructive Surgery | DX: O99.211 Obesity complicating pregnancy, first trimester (principal); Z98.891 History of uterine scar from previous surgery; Z3A.01 Less than 8 weeks gestation of pregnancy | CPT/HCPCS: 76817; 84315 ==

== ENCOUNTER → 2019-11-03 10:40 | Outpatient (BNVA) | payer MEDICAID, SELFPAY | PROVIDERS: PCP Registered Nurse; Visit Provider Obstetrics & Gynecology | DX: O09.899 Supervision of other high risk pregnancies, unspecified trimester (principal); O99.210 Obesity complicating pregnancy, unspecified trimester | CPT/HCPCS: 80053; 80307; 81000; 82950; 85027; 86592; 86762; 86803; 86850; 86900; 87340 ==

== ENCOUNTER → 2019-11-10 10:39 | Outpatient (BNVA) | payer MEDICAID, SELFPAY | PROVIDERS: PCP Registered Nurse; Visit Provider Obstetrics & Gynecology | DX: O09.899 Supervision of other high risk pregnancies, unspecified trimester (principal); O34.219 Maternal care for unspecified type scar from previous cesarean delivery; O26.891 Other specified pregnancy related conditions, first trimester; Z67.91 Unspecified blood type, Rh negative; Z30.2 Encounter for sterilization; O99.211 Obesity complicating pregnancy, first trimester; O99.331 Smoking (tobacco) complicating pregnancy, first trimester | CPT/HCPCS: 84315; 87491; 87591 ==

== ENCOUNTER → 2020-03-02 09:54 | Outpatient (BNVA) | payer MEDICAID, SELFPAY | PROVIDERS: PCP Registered Nurse; Visit Provider Obstetrics & Gynecology | DX: O09.899 Supervision of other high risk pregnancies, unspecified trimester (principal); O26.891 Other specified pregnancy related conditions, first trimester; Z67.91 Unspecified blood type, Rh negative | CPT/HCPCS: 82950; 84315; 85027; 86850 ==

== ENCOUNTER → 2020-04-27 11:30 | Outpatient (BNVA) | payer MEDICAID, SELFPAY | PROVIDERS: Family Provider Family Medicine; PCP Registered Nurse; Visit Provider Nurse Practitioner Women's Health | DX: O09.899 Supervision of other high risk pregnancies, unspecified trimester (principal); O26.891 Other specified pregnancy related conditions, first trimester; Z67.91 Unspecified blood type, Rh negative; O99.211 Obesity complicating pregnancy, first trimester; O34.219 Maternal care for unspecified type scar from previous cesarean delivery; O99.331 Smoking (tobacco) complicating pregnancy, first trimester; O40.9XX0 Polyhydramnios, unspecified trimester, not applicable or unspecified | CPT/HCPCS: 84315; 87081 ==

== ENCOUNTER 2020-05-17 07:48 | Inpatient (IN) | payer MEDICAID, SELFPAY ==
[2020-05-17] VITALS (67 sets, daily range): BP systolic 0–165; BP diastolic 0–97; PULSE 80–130; RESP 16–20; TEMP 36.6–36.9; O2SAT 96–100; BMI 53.7
[2020-05-17] MEDS: lactated ringers 1,000 ML 999 ML IV ×2 (08:00→09:07)
[2020-05-17 08:39] LABS: Add Urine Microscopic? NO
[2020-05-17 08:45] LABS: Basophils # 0.1 10^3/uL (0.0-0.1); Basophils % 0.3 %; Eosinophils # 0.3 10^3/uL (0.0-0.8); Eosinophils % 1.4 %; Hematocrit 34.8 % (37.0-47.0); Hemoglobin 11.3 g/dL (11.5-15.3); Lymphocytes # 3.6 10^3/uL (0.8-4.8); Lymphocytes % 18.8 %; Mean Corpuscular HGB Conc 32.5 g/dL (30.0-36.0); Mean Corpuscular Hemoglobin 29.7 pg (28.0-34.0); Mean Corpuscular Volume 91.3 fL (81-99); Monocytes % 5.3 %; Neutrophils # 14.21 10^3/uL (1.8-7.7); Neutrophils % 73.4 %; Nucleated Red Blood Cells % 0 %; Platelet Count 289 10^3/cmm (130-400); Red Blood Count 3.81 10^6/uL (4.1-5.3); White Blood Count 19.4 10^3/uL (4.0-10.0)
[2020-05-17 08:59] LABS: Bilirubin Urine Neg (Negative); Blood Urine Neg (Negative); Glucose Urine UA Norm (Normal); Ketones Urine Negative (Negative); Leukocyte Esterase Urine Negative (Negative); Nitrate Urine Negative (Negative); Protein Urine Neg (Negative); Specific Gravity, Urine 1.005 (1.005-1.030); Urine Appearance Clear (CLEAR); Urine Color Yellow (Yellow); Urobilinogen Urine Norm (Negative)
[2020-05-17 09:13] LABS: Alanine Aminotransferase 7 U/L (0-33); Alkaline Phosphatase 139 IU/L (35-105); Anion Gap 15.8 (5-19); Aspartate Amino Transferase 9 U/L (0-32); Blood Urea Nitrogen 8 mg/dL (6-20); Calcium 8.7 mg/dL (8.5-10.5); Carbon Dioxide 21 mmol/L (22-29); Chloride 103 mmol/L (98-107); Globulin 3.2 g/dL (1.3-4.6); Glomerular Filtration Rate 151.6 mL/min (90-130); Glucose 95 mg/dL (65-115); Osmolality Calculated 280 mOsm/kg (285-295); Potassium 3.8 mmol/L (3.5-5.1); Sodium 136 mmol/L (136-145); Total Bilirubin 0.2 mg/dL (0.15-1.2); Total Protein 6.2 g/dL (6.6-8.7); Uric Acid 7.5 mg/dL (2.4-5.7)
--- NOTE | 2020-05-17 09:15 | ANES.PREANE2 ---
Pre-Anesthetic Assessment Pre-Anesthetic Assessment: Height/Weight: Height 1.63 m Weight 141.974 kg Temp Pulse Resp BP Pulse Ox 97.9 F 87 18 146/80 100 05/17/20 07:30 05/17/20 09:44 05/17/20 07:30 05/17/20 09:44 05/17/20 09:44 Preop Diagnosis: IUP Was Beta Gavin taken within 24 hours: N/A Social: Social History: Tobacco Exam: Pre-Anes Outpt Exam: alert, oriented x 3, clear to auscultation bilaterally and regular rate & rhythm Airway: Submandibular: WNL Cervical ROM: WNL MP: 1 History/ROS: No significant history except as noted Pulmonary: Pulmonary: None reported CV/HEM: CV/HEM: HTN (in the past (untreated)) : : None reported Hepatic: Hepatic: None reported GI: GI: None reported Metabolic: Metabolic: Morbid obesity Musc/skel: Musc/skel: None reported Neuropsych: Neuropsych: None reported Anesthetic Plan: ASA status: 2 Anesthesia: Anesthesia Evaluation Risk of > 500 ml blood loss (7ml/kg in children): No Meds/Allergies Current Medications: Current Medications Generic Name Dose Route Start Last Admin Trade Name Freq PRN Reason Stop Dose Admin Lactated Ringer's 1,000 mls @ 999 m ls/hr 05/17/20 07:38 05/17/20 09:07 Lactated Ringers IV 999 mls/hr .Q1H1M PRN Administration Per L&D Rescitati on Protocol Ropivacaine 200 mg in 100 mls @ 13 mls/hr 05/17/20 08:00 05/17/20 09:47 Naropin Premix EPIDURAL 13 mls/hr .Q7H42M ABILIO Administration Lactated Ringer's 1,000 mls @ 999 m ls/hr 05/17/20 07:47 05/17/20 08:00 Lactated Ringers IV 999 mls/hr .Q1H1M PRN Administration See label comment s PFSH Anesthesia PFSH: Medical History History of hypertension She states that she has had high blood pressure that developed after the of her last child. Review of records shows 1 elevated blood pressure when patient came in for evaluation of depression however all other blood pressures were within normal limits. States she was on medication for one month after delivery but nothing since then. She denies following up with after delivery. in 2018 she did not have issues with HTN. No pertinent past medical history Denies history of: Denies diabetes, asthma, seizures,bleeding or clotting disorders, DVT/PE, genital herpes PCP: THERESE Gonzalez PCOS (polycystic ovarian syndrome) Gives history of PCOS-does not remember details. Now has been having irregular cycles. Surgical History History of 01/23/2016---primary low transverse section. Performed by Dr. Almonte at [facility] in [place], [place]. Delivery for arrest of dilation at 8 cm and arrest of descent at -1 station. History of laparoscopy 02/19/2015--performed by Dr. Gonzalez De La Torre at [facility] for a cyst in her ovary History of tonsillectomy (~2008) 2008 Family History Mother Hypertension Cervical cancer, Onset Age: 30 questionable if cancer; most likely precancer Father Hypertension Grandmother Hypertension Paternal Maternal Stroke Paternal grandmother Breast cancer, Onset Age: 50 Paternal grandmother Grandfather Hypertension Paternal Maternal Brother Stroke Family/Other Uterine cancer Maternal Aunt Denies family history of Colon cancer Ovarian cancer Diabetes Heart disease Hyperlipidemia Family history of thyroid problem Social History Smoking and tobacco status: current every day smoker Alcohol intake: unknown Female Reproductive History: Date of last menstrual period: 08/14/19 : 3 Data Anesthesia CBC & Chem 7: 05/17/20 08:23 05/17/20 08:23 Other Labs: Laboratory Results - last 48 hr 05/17/20 05/17/20 05/17/20 07:45 07:45 08:23 WBC RBC Hgb Hct MCV MCH MCHC RDW Plt Count MPV Neut % (Auto) Lymph % (Auto) Story % (Auto) Eos % (Auto) Baso % (Auto) Neut # (Auto) Lymph # (Auto) Story # (Auto) Eos # (Auto) Baso # (Auto) Nucleated RBC % (auto) Nucleated RBCs # Sodium 136 Potassium 3.8 Chloride 103 Carbon Dioxide 21 L Anion Gap 15.8 BUN 8 Creatinine 0.5 GFR Calculation 151.6 H Glucose 95 Calculated Osmolality 280 L Uric Acid 7.5 H Calcium 8.7 Total Bilirubin 0.2 AST 9 ALT 7 Alkaline Phosphatase 139 H Total Protein 6.2 L Albumin 3.0 L Globulin 3.2 Urine Color Yellow Urine Appearance Clear Urine pH 7.0 Ur Specific [place] 1.005 Urine Protein Neg Urine Glucose (UA) Norm Urine Ketones Negative Urine Blood Neg Urine Nitrate Negative Urine Bilirubin Neg Urine Urobilinogen Norm Ur Leukocyte Esterase Negative U Random Total Protein 8 Urine Creatinine 67 Protein/Creatinin Ratio 0.12 05/17/20 08:23 WBC 19.4 H RBC 3.81 L Hgb 11.3 L Hct 34.8 L MCV 91.3 MCH 29.7 MCHC 32.5 RDW 14.0 Plt Count 289 MPV 11.0 H Neut % (Auto) 73.4 Lymph % (Auto) 18.8 Story % (Auto) 5.3 Eos % (Auto) 1.4 Baso % (Auto) 0.3 Neut # (Auto) 14.21 H Lymph # (Auto) 3.6 Story # (Auto) 1.0 H Eos # (Auto) 0.3 Baso # (Auto) 0.1 Nucleated RBC % (auto) 0 Nucleated RBCs # 0.0 Sodium Potassium Chloride Carbon Dioxide Anion Gap BUN Creatinine GFR Calculation Glucose Calculated Osmolality Uric Acid Calcium Total Bilirubin AST ALT Alkaline Phosphatase Total Protein Albumin Globulin Urine Color Urine Appearance Urine pH Ur Specific [place] Urine Protein Urine Glucose (UA) Urine Ketones Urine Blood Urine Nitrate Urine Bilirubin Urine Urobilinogen Ur Leukocyte Esterase U Random Total Protein Urine Creatinine Protein/Creatinin Ratio Cardiac Studies: No Data to Display
--- NOTE | 2020-05-17 09:20 | PC.NURSE ---
FHT monitor off at this time. Pt sitting on side of bed and Nona August CRNA at bedside for epidural.
[2020-05-17 09:21] LABS: UPRO/UCREAT Ratio 0.12 mg/mg CR; Urine Creatinine 67 mg/dL (28-217); Urine Protein Random 8 mg/dL
--- NOTE | 2020-05-17 09:50 | ANES.PROC ---
Anesthesia Procedures Procedure/Date: 05/17/20 Epidural: Time Out Performed: Yes Consents Signed: Procedure Consent Consent: requested by attending/covering physician Lumbar Level: L3-L4 Epidural position: sitting Epidural procedure: sterile prep of area, 1% lidocaine to numb the area, 18 g needle, negative for paresthesia passed, neg for paresthesia, test dose given, 1.5% xylocaine 1:200k epi (5ml), placed PCEA, no systemic response, sterile dressing applied, L.U.D. no apparent complications and 0.2% Ropiavacaine @ mls/hr (13)
--- NOTE | 2020-05-17 12:34 | PM.PN ---
Subjective Subjective: Interval history: 4 year old with a LMP of 08/14/2019, EDC of 05/20/2020 based on LMP consistent with a 6-week sonogram which places her at 39+4 weeks. In active labor. Refers epidural is not working to well but helps her tolarate the contractions. Vitals/I&O/Wt Last Vital Signs Temp 97.9 F 05/17/20 07:30 Pulse 85 05/17/20 12:13 Resp 18 05/17/20 07:30 BP 0/0 05/17/20 12:28 Pulse Ox 99 05/17/20 09:54 Weight last 48 hrs Weight 141.974 kg Physical Exam Narrative: EXAM NARRATIVE: GA: Alert and oriented ?3. Lungs: Clear to auscultation bilaterally. Heart: Regular rhythm and rate. Abdomen: Gravid, fundal height greater than dates, nontender. RESTAURANT HOSPITALITY MANAGER: SVE; dilation: 7 cm, effacement: 100 %, station: 0, presentation: Vertex, membranes: AROM meconium stain. Extremities: no edema, no cyanosis, no calves pain. heart tracing: Basal rate: 140s bpm, Variability: moderate, Accelerations: Present, Decelerations: Absent, Contractions: Every 3-4 minutes. Data : 05/17/20 08:23 05/17/20 08:23 A&P Assessment and plan (1) Previous delivery affecting , antepartum: Term trial of labor after delivery 39+4 weeks. heart tracing category 1, scalp electrodes (FSE) to monitor heart rates initiated due to obesity difficult to monitor by echo. scalp stimulation reassuring. AROM with light meconium-stained. plan: Continue monitoring. Anticipate . Status: Acute (2) Polyhydramnios: Status: Acute (3) Rh negative status during : Status: Acute Qualifiers: Trimester: first trimester Qualified Code(s): O26.891 - Other specified related conditions, first trimester; Z67.91 - Unspecified blood type, Rh negative (4) Obesity affecting : Status: Acute Qualifiers: Trimester: first trimester Qualified Code(s): O99.211 - Obesity complicating , first trimester (5) Tobacco smoking affecting : Status: Acute Qualifiers: Trimester: first trimester Qualified Code(s): O99.331 - Smoking (tobacco) complicating , first trimester Attestations Medical Necessity Statement*: in my professional opinion perr admitting diagnosis. Coding Level of Care Code Acute Instructor Traffic Safety for Chg Fwd Diagnoses Previous delivery affecting , antepartum O34.219 Polyhydramnios O40.9XX0 Rh negative status during O26.891; Z67.91 Trimester: first trimester Obesity affecting O99.211 Trimester: first trimester Tobacco smoking affecting O99.331 Trimester: first trimester
--- NOTE | 2020-05-17 13:10 | PC.NURSE ---
At 1213 Dr. Wynn was at bedside performing SVE and AROM. Moderate amount of meconium stained fluid present. Pt sat up at 1220 and FHT were not picking up externally due to pt size and movement. Dr. Wynn suggested FSE be placed. Dr. Wynn placed first FSE at 1227. FSE was not picking up FHT, new ground pad was placed and still not picking up FHT correctly. A second FSE was placed by Dr. Wynn at 1232. FHT were still not picking up well so a different FSE monitor cord was used. This did not fix the problem. This nurse performed SVE and FSE was not attatched so this nurse placed a new FSE at 1238 and this one was placed correctly and was picking up FHT.
--- NOTE | 2020-05-17 14:17 | P.PCNOB_ITS ---
Delivery Note: Date of delivery: May 17, 2020 Pre-delivery diagnoses: term . previous delivery. morbid obesity. Rh-. Polyhydramnios. Post-delivery diagnoses: Same as above. Op report anesthesia: Epidural Delivering Physician: Jose Elias Wynn M.D. Estimated blood loss (mL): 500 Findings: baby girl, Apgars 8/9, weight 3090 g Delivery: The patient was noted to be complete and pushing, so was placed in the dorsal lithotomy position, prepped and draped in the usual sterile fashion for a vaginal delivery. Pt. Noted to have epidural anesthesia. Decision was made to apply the Kiwi vacuum @ 39+4 weeks for nonreassuring status. The mother was informed and asked for her consent for application of the vaccum. A gaytan had been used to insure the bladder was emptied. Adequate anesthesia was confirmed. The edges of the cup of the Kiwi vacuum were placed approximately 3cm from the anterior fontanelle, and just at the edge of the posterior fontanelle. The center of the cup was placed over the flexion point. The edges of the cup were swept with a finger to ensure that no maternal tissues were entrapped. After correct placement of the cup was confirmed, vacuum pressure was raised to 500-600 mmHg. Gentle traction along the axis of the pelvic curve down then up, was applied in concert with maternal pushing. 2 # applications. 1# pop-offs. After head delivered, the vacuum pressure released and was taken off the baby's head. Pt. Noted to have epidural anesthesia. At 1352 the patient delivered a viable (gestational age) fetus weighing 3090 g with scores of 8 and 9 at one and five minutes, respectively. The vertex was delivered vacuum assisted over intact perineum. The patient was asked to push and the head delivered in the RAEGAN position, over an intact perineum. A nuchal cord was checked and 1 noted, and relieved around head as necessary. The anterior shoulder delivered easily and the posterior shoulder followed. The remainder of the was easily delivered and the oropharynx and nasopharynx was bulb suctioned. The was noted to have spontaneous cry and spontaneous movement of all four extremities. The cord was clamped x 2 and cut and noted to have 2 arteries and one vein. The was passed to the mother's abdomen where nursing personnel were in attendance. Cord blood sample was then obtained. The placenta delivered intact spontaneously and the uterus was explored. 20 units of Pitocin was placed in the IV bag to firm the uterus. Examination of the cervix and vaginal vault did not reveal any lacerations. A vaginal pack was then placed. Examination of the perineum showed second-degree laceration. The laceration was repaired with 2-0 Vicryl in the normal fashion in a running non locking fashion to reapproximate the laceration in layers. The vaginal pack was then removed. The patient tolerated this procedure well, and recovered in L&D with her . All sponge and needle counts were correct. A&P Assessment and plan (1) Previous delivery affecting , antepartum: Status: Acute (2) Polyhydramnios: Status: Acute (3) Rh negative status during : Status: Acute Qualifiers: Trimester: first trimester Qualified Code(s): O26.891 - Other specified related conditions, first trimester; Z67.91 - Unspecified blood type, Rh negative (4) Obesity affecting : Status: Acute Qualifiers: Trimester: first trimester Qualified Code(s): O99.211 - Obesity complicating , first trimester (5) Tobacco smoking affecting : Status: Acute Qualifiers: Trimester: first trimester Qualified Code(s): O99.331 - Smoking (tobacco) complicating , first trimester Coding Level of Care Code Acute Epidemiology Investigator for Chg Fwd Diagnoses Previous delivery affecting , antepartum O34.219 Polyhydramnios O40.9XX0 Rh negative status during O26.891; Z67.91 Trimester: first trimester Obesity affecting O99.211 Trimester: first trimester Tobacco smoking affecting O99.331 Trimester: first trimester
[2020-05-17] MEDS: oxytocin 30 UNIT/500 ML BAG 999 UNIT IV (14:25)
[2020-05-17] MEDS: lidocaine 2% INJ 20 mL INJECTION (14:26)
[2020-05-17] MEDS: ibuprofen 800 mg tablet PO ×2 (16:18→20:05)
[2020-05-17] MEDS: benzocaine-menthol 78 gm Canister 1 SPRAY TOPICAL (16:19)
--- NOTE | 2020-05-17 17:10 | PC.NURSE ---
AT 1347 kiwi vacuum was applied due to bradycardia. Vacuum popped off at 10 seconds. Vacuum was reapplied at 1351 was on for one minute and infants head was delivered.
[2020-05-17] MEDS: docusate sodium 100 mg Capsule PO (17:58)
[2020-05-17] MEDS: alum-mag-hydroxide-sime 30 mL UDC PO (22:04)
[2020-05-18] VITALS: BP 117/72; PULSE 82; RESP 16; TEMP 36.8; O2SAT 96
[2020-05-18 02:08] LABS: Hematocrit 31.2 % (37.0-47.0); Hemoglobin 10.3 g/dL (11.5-15.3); Mean Corpuscular Hemoglobin 30.2 pg (28.0-34.0); Mean Corpuscular Volume 91.5 fL (81-99); Mean Platelet Volume 10.9 fL (7.4-10.4); Platelet Count 286 10^3/cmm (130-400); Red Blood Count 3.41 10^6/uL (4.1-5.3); White Blood Count 22.6 10^3/uL (4.0-10.0)
[2020-05-18 03:35] VITALS: BP 129/72; PULSE 87; RESP 16; TEMP 36.7; O2SAT 97
[2020-05-18] MEDS: acetaminophen 325 mg Tablet 650 MG PO (07:13)
[2020-05-18] MEDS: ibuprofen 800 mg tablet PO (08:49)
[2020-05-18] MEDS: prenatal vitamin Capsule 1 CAP PO (08:50)
[2020-05-18] MEDS: docusate sodium 100 mg Capsule PO (08:50)
[2020-05-18 08:56] VITALS: BP 139/76; PULSE 90; RESP 16; O2SAT 97
--- NOTE | 2020-05-18 14:54 | PM.OBGYDC ---
Discharge Providers APPLIED BEHAVIOR SPECIALIST Date of Admission: 05/17/20 07:48 Date of Discharge: 05/18/20 Attending Provider at Admission: Jose Elias Wynn MD Attending Provider at Discharge: Jose Elias Wynn MD Primary Care Provider: THERESE Ward Diagnoses at Discharge Discharge Diagnosis (1) Previous delivery affecting , antepartum: Status: Acute (2) Polyhydramnios: Status: Acute (3) Rh negative status during : Status: Acute Qualifiers: Trimester: first trimester Qualified Code(s): O26.891 - Other specified related conditions, first trimester; Z67.91 - Unspecified blood type, Rh negative (4) Obesity affecting : Status: Acute Qualifiers: Trimester: first trimester Qualified Code(s): O99.211 - Obesity complicating , first trimester (5) Tobacco smoking affecting : Status: Acute Qualifiers: Trimester: first trimester Qualified Code(s): O99.331 - Smoking (tobacco) complicating , first trimester Reason for Visit Reason for Visit: Abdominal pain Hospital Course Hospital Course 24 year old with a LMP of 08/14/2019, EDC of 05/20/2020 EGA at 39 weeks 4 days in active labor and delivery in active labor. She is delivery ?1 and came for TOLAC. She progress to have a vaccum assited vaginal delivery due non-reassuring status. She delivered a female infant in OP presentation 8/9 with a weight of 3090g. observation was uneventful, is afebrile hemodynamically stable, tolerating diet well, ambulating without difficulty. She refers she plans to use the levonorgestrel-releasing IUS for contraception when she comes back at her visit. Information Peripartum Data: Infant Delivery Method: Physical Exam Narrative: EXAM NARRATIVE: GA; alert and oriented x 3 HEENT: normal Breasts: engorged Nipples - skin intact Lungs; clear to auscultation Heart: regular rhythm, no murmurs. Abd: Appropriately tender. BS+. Uterine fundus below umbilicus. No Fundal Tenderness. Perineum: normal lochia. Extremities: no edema, no cyanosis, no tenderness. Urinary Catheter Management^: [place]: Cath Placed During This Visit: yes, but has since been removed by the nurse Reason for Continuing Indwelling Catheter: Decision to DC Catheter Urinary Catheter Date of Insertion: 05/17/20 Urinary Catheter Time of Insertion: 10:00 Date Urinary Catheter Removed: 05/17/20 Time Urinary Catheter Discontinued: 13:35 Discharge Data Data Completed and Pending: Pending at discharge Category Date Time Status Complete Crossmat ch Routine Lab 05/17/20 08:23 Results PTC COVID [Elliott virus Lab Test PTC ] Stat Lab 05/17/20 08:20 Received Rho D Immune Glob ulin Routine Lab 05/17/20 08:23 Results Type and Screen R outine Lab 05/17/20 08:23 Results Labs from last 24 hours 05/18/20 05/18/20 05/17/20 02:00 02:00 08:23 WBC 22.6 H RBC 3.41 L Hgb 10.3 L Hct 31.2 L MCV 91.5 MCH 30.2 MCHC 33.0 RDW 14.0 Plt Count 286 MPV 10.9 H Blood Type A Negative Rho(D) Type Negative Antibody Screen Negative Screen Negative Vitals: Last Vital Signs Temp 98.1 F 05/18/20 03:35 Pulse 90 05/18/20 08:56 Resp 16 05/18/20 08:56 BP 139/76 05/18/20 08:56 Pulse Ox 97 05/18/20 08:56 Discharge Plan Discharge Patient Disposition: Home Condition: Stable Prescriptions: New acetaminophen 325 mg capsule 325 mg PO Q4H PRN (Reason: fever or pain) Qty: 60 RF: 0 ferrous sulfate [Iron (ferrous sulfate)] 325 mg (65 mg iron) tablet 325 mg PO BID Qty: 60 RF: 0 ibuprofen 800 mg tablet 800 mg PO TID PRN (Reason: pain) Qty: 60 RF: 0 Continued DHA 200 mg capsule PO DAILY RF: 0 calcium carbonate 500 mg calcium (1,250 mg) tablet,chewable 500 mg PO DAILY RF: 0 oxymetazoline [Nasal [place] Sinus] 0.05 % [place],Non-Aerosol 2 spray INTRANASAL Q12H PRN (Reason: Nasal Congestion) RF: 0 Discharge Orders: Discharge Order (Routine); Ordered 05/18/20 Ordered By: Jose Elias Wynn Referrals: Jose Elias Wynn MD [Physician] - 06/27/20 10:00 am (* Your 6 week follow up appointment will be on 06/27/2020 at 10:00am. ) Discharge Diet: As Directed Discharge Activity: Increase activity as tolerated Patient Instructions: Bleeding (DC), OB Discharge Report, OB Anesthesia Instructions, OB Home Care, OB Proud Parent Packet, OB Vaginal Deliveries - [facility] Activity Restrictions/Additional Instructions: 1. Please call [facility] on next working day to make your post-operative appointment in 2 weeks. 2. Please stay home until you come back to the clinic on first post-operative check up. 3. Please follow instructions on your medications CAREFULLY. 4. If you have abdominal incision, do not cover it unless dressing is necessary because of drainage. OK to shower, but avoid bath. Leave steri-strips until they fall off. If they are still on one week after surgery, you may remove them. 5. If you had vaginal surgery, your doctor may instuct you to take SITZ bath. 6. Yellow, blood tinged odorous vaginal discharge is usually normal after hysterectomy or vaginal surgeries. 7. No sexual intercourse, tampons, or douches until you are completely released from the post-operative care. 8. Avoid constipation by eating right and maybe using some Metamucil or Milk of Magnesia. 9. All presciption refills are given during the working hours. Please do no wait till it runs out. Call the clinic at [phone] before your medication runs out. The clinic will get in touch with your doctor to prescribe medications if necessary. 10. Please remain within 40 mile radius from our hospital because emergencies do happen now and then during the post-operative period. 11. If you have stairs at home, take one step at a time slowly and minimize the number of trips. It helps to stay in one floor for the next few days. No lifting except what you can lift by one hand until you are released from the post-operative care. 12. Driving is discouraged until you are well healed. It may be 3-4 weeks before you feel strong enough to drive. You should be able to turn and look throught the rear window without pain and you should be able to push the brake pedal very hard without pain before you drive. No fast rules, but SAFETY should be your primary concern. DO NOT drive if you are on sedating medications such as narcotics. 13. Call the clinic (during working hours) to make urgent appointment or go to the Emergency room, if any of the following occurs: i. Vaginal bleeding becomes heavy, more than a period. ii. Incision becomes red and sore, or drains pus. iii. Your temperature is over 100.4 or you have chill. iv. IV site becomes red and swollen (a little ``knot?? is usually OK) v. Persistent nausea and vomiting vi. Persistent constipation or diarrhea vii. Rash or allergic reaction to medications. Discharge Attestations APPLIED BEHAVIOR SPECIALIST Time Spent in Discharge Care*: greater than 30 min Coding Level of Care Code Acute Change Attendant for Chg Fwd Diagnoses Previous delivery affecting , antepartum O34.219 Polyhydramnios O40.9XX0 Rh negative status during O26.891; Z67.91 Trimester: first trimester Obesity affecting O99.211 Trimester: first trimester Tobacco smoking affecting O99.331 Trimester: first trimester
[2020-05-18 16:15] VITALS: BP 151/98; PULSE 89; RESP 16; TEMP 36.7; O2SAT 98
--- NOTE | 2020-05-18 16:49 | PC.RESP ---
Smoking Cessation information sent to patient.
[2020-05-20 09:06] LABS: Coronavirus Lab Test PTC Positive
== END 2020-05-18 16:28 | disposition home or self-care (01) | DRG 806 ==
LOC: OPOB 05-18 09:06
PROVIDERS: Admitting Provider Obstetrics & Gynecology; Family Provider Family Medicine; PCP Registered Nurse; Visit Provider Obstetrics & Gynecology
DX: O34.211 Maternal care for low transverse scar from previous cesarean delivery (principal); O10.92 Unspecified pre-existing hypertension complicating childbirth; Z37.0 Single live birth; O36.0930 Maternal care for other rhesus isoimmunization, third trimester, not applicable or unspecified; O41.03X0 Oligohydramnios, third trimester, not applicable or unspecified; Z3A.39 39 weeks gestation of pregnancy; O99.284 Endocrine, nutritional and metabolic diseases complicating childbirth; E28.2 Polycystic ovarian syndrome; O99.334 Smoking (tobacco) complicating childbirth; F17.210 Nicotine dependence, cigarettes, uncomplicated; O99.214 Obesity complicating childbirth; E66.01 Morbid (severe) obesity due to excess calories; O77.0 Labor and delivery complicated by meconium in amniotic fluid; O76 Abnormality in fetal heart rate and rhythm complicating labor and delivery; O69.2XX0 Labor and delivery complicated by other cord entanglement, with compression, not applicable or unspecified; O70.1 Second degree perineal laceration during delivery
CPT/HCPCS: 12345; 36415; 51702; 59025; 80053; 81003; 82570; 84156; 84550; 85025; 85027; 85460; 86850; 86900; 87635; 90384; 99211; J2795

== ENCOUNTER → 2020-06-27 10:45 | Outpatient (BNVA) | payer MEDICAID, SELFPAY | PROVIDERS: Family Provider Family Medicine; PCP Registered Nurse; Visit Provider Obstetrics & Gynecology | DX: Z12.4 Encounter for screening for malignant neoplasm of cervix (principal); Z39.2 Encounter for routine postpartum follow-up | CPT/HCPCS: 88175 ==

== ENCOUNTER → 2020-06-29 08:44 | Outpatient (BNVA) | payer MEDICAID, SELFPAY | PROVIDERS: Family Provider Family Medicine; PCP Registered Nurse; Visit Provider Obstetrics & Gynecology | DX: Z30.9 Encounter for contraceptive management, unspecified (principal) | CPT/HCPCS: 81025 ==

== ENCOUNTER 2021-07-21 09:33 | Emergency (ER) | payer MEDICAID, SELFPAY ==
[2021-07-21 09:39] VITALS: BP 136/89; PULSE 91; RESP 16; TEMP 36.9; O2SAT 98; BMI 53.8
--- NOTE | 2021-07-21 09:47 | XR_ITS ---
WS: [id number] XR ankle LT min 3V* [id number] REASON FOR EXAM: ankle injury FINDINGS: Right tibia is intact. The ankle mortise is well preserved. There is a bony body adjacent to the left fibula. This likely is related to the lateral collateral li gamentous injury with avulsion. Chronicity is uncertain. This may be an old injury. Correlate clinica lly. No other significant abnormality. XR/XR ankle LT min 3V* [id number] IMPRESSION: Lateral malleolar abnormality as above.
[2021-07-21 09:54] VITALS: BP 136/89; PULSE 91; RESP 16; O2SAT 98
--- NOTE | 2021-07-21 09:54 | ED_ITS ---
HPI - Extremity Problem General: Chief complaint: Extremity Injury, Lower Stated complaint: LEFT FOOT INJURY Time Seen by Provider: 07/21/21 09:47 Source: patient Mode of arrival: wheelchair Limitations: no limitations History of Present Illness: HPI Narrative: 25-year-old female presents to the ER today for left ankle pain x2 hours. Patient reports she stepped over a baby gate at her home this morning and stepped on a coloring book which slid out from under her. Patient reports her leg went backwards and her body forwards. Patient reports she felt a pop in the left ankle and has been unable to bear weight since. Patient reports this pain is a 9 out of 10 with weightbearing of the left ankle. Patient reports wiggling her toes sends shooting pains into the ankle. Patient denies any swelling or deformity. Patient denies any prior ankle injury. Patient has not done anything for the pain at this time. MD Complaint: extremity pain Onset (ago): hour(s) Pain Consistency: constant Location: left and lower extremity Severity scale (1-10): 9 Quality: aching Relieving factors: nothing Exacerbating factors: range of motion, weight bearing and walking Review of Systems General: Reports: 10 or more systems reviewed and unremarkable except in HPI and below PFSH ED PFSH: Medical History (Updated 07/21/21 @ 10:23 by Sharmila Beltrán PA-C) History of hypertension She states that she has had high blood pressure that developed after the of her last child. Review of records shows 1 elevated blood pressure when patient came in for evaluation of depression however all other blood pressures were within normal limits. States she was on medication for one month after delivery but nothing since then. She denies following up with after delivery. in 2018 she did not have issues with HTN. No pertinent past medical history Denies history of: Denies diabetes, asthma, seizures,bleeding or clotting disorders, DVT/PE, genital herpes PCP: THERESE Gonzalez PCOS (polycystic ovarian syndrome) Gives history of PCOS-does not remember details. Now has been having irregular cycles. Surgical History History of 01/23/2016---primary low transverse section. Performed by Dr. Almonte at [facility] in [place], [place]. Delivery for arrest of dilation at 8 cm and arrest of descent at -1 station. History of laparoscopy 02/19/2015--performed by Dr. Gonzalez De La Torre at [facility] for a cyst in her ovary History of tonsillectomy (~2008) 2008 Family History Mother Hypertension Cervical cancer, Onset Age: 30 questionable if cancer; most likely precancer Father Hypertension Grandmother Hypertension Paternal Maternal Stroke Paternal grandmother Breast cancer, Onset Age: 50 Paternal grandmother Grandfather Hypertension Paternal Maternal Brother Stroke Family/Other Uterine cancer Maternal Aunt Denies family history of Colon cancer Ovarian cancer Diabetes Heart disease Hyperlipidemia Family history of thyroid problem Social History Smoking and tobacco status: current every day smoker cigarettes [ Other cigarette details: 4-6 cigarettes/day ] Alcohol intake: unknown Additional social history: - Female Reproductive History: Date of last menstrual period: 08/14/19 Physical Exam Const: COMMON NORMALS: no acute distress, average body habitus and patient oriented x3 GENERAL APPEARANCE: cooperative HENMT: COMMON NORMALS: normocephalic, external ears normal and Normal external nose present HEAD & SCALP: normocephalic NOSE: Normal external nose present EXTERNAL EAR: Yes external ears normal Eye: COMMON NORMALS: conjunctivae normal CONJUNCTIVA: Yes conjunctivae normal Resp: COMMON NORMALS: normal respiratory effort EFFORT & INSPECTION: Yes able to speak in complete sentences Cardio: COMMON NORMALS: regular rate and regular rhythm RATE: regular rate RHYTHM: regular rhythm Extremity: LEFT LOWER EXTREMITY: Yes ankle joint Left ankle: Yes inspection (normal, no bruising or swelling noted), Yes palpation (TTP over lateral malleolus and posterior ankle) and Yes ROM (decrease flexion, extension secondary to pain) Neuro: COMMON NORMALS: patient oriented x3 and no sensory deficits noted Psych: COMMON NORMALS: mental status grossly normal, Normal thought process present and cooperative THOUGHT PROCESS: Normal thought process present Skin: COMMON NORMALS: no rashes or lesions noted GENERAL SKIN EXAM: no rashes or lesions noted Course ED course: Patient presents to the ER today after an ankle injury this morning. We will x-ray her ankle at this time. Vital Signs: Vital signs: Vital Signs Temperature 98.4 F 07/21/21 09:39 Pulse Rate 91 07/21/21 09:54 Respiratory Rate 16 07/21/21 09:54 Blood Pressure 136/89 07/21/21 09:54 Pulse Oximetry 98 07/21/21 09:54 Critical Care Time Critical Care Time: Critical Care Time: No MDM - Extremity (Nontraumatic) MDM Narrative: Medical decision making narrative: 25-year-old female presents to the ER today for left ankle pain after a fall this morning. Patient reports difficulty bearing weight due to pain. Patient does report she injured this ankle years ago when she fell down some stairs and had an avulsion/tendon injury at that time. X-ray was performed which does indicate a probable old avulsion injury but no acute injuries. Discussed findings with patient. Will place patient on crutches and with a gel splint on the ankle. Discussed staying off of the foot/ankle for 1 week and then progress as tolerated. Rest, ice, elevation recommended. Take ibuprofen 800 mg four times daily x7 days for pain and swelling. Follow-up with PCP in 10 to 14 days if no improvement. Return to the ER with any new or worsening symptoms. Patient verbalized understanding and is in agreement with the treatment plan. Imaging Data^: Xray Ortho: Radiologist's impression: [address] [address] XRay Report Signed Patient: Navin Mejia Unit #: [id number] : 1995 Age/Sex: 25 / F ADM Date: 07/21/21 Loc: ER Room/Bed: Attending Dr: Ordering Provider/Ordering MD: Sharmila Beltrán Date of Service: 07/21/21 Procedure(s): XR ankle LT min 3V* 88229 Accession Number(s): [id number] Report Number: [id number] WS: [id number] XR ankle LT min 3V* 15034 REASON FOR EXAM: ankle injury FINDINGS: Right tibia is intact. The ankle mortise is well preserved. There is a bony body adjacent to the left fibula. This likely is related to the lateral collateral ligamentous injury with avulsion. Chronicity is uncertain. This may be an old injury. Correlate clinically. No other significant abnormality. XR/XR ankle LT min 3V* [id number] IMPRESSION: Lateral malleolar abnormality as above. Dictated By: Hernan Negrete Jr, MD Signed By: Hernan Negrete Jr, MD Signed Date/Time: 07/21/21 1011 DD/ Discharge Plan Discharge Patient Disposition: Home Clinical Impression: Ankle sprain and strain Condition: Stable Prescriptions: No Action Mirena 20 mcg/24 hours (6 yrs) 52 mg intrauterine device 1 device intrauterine .every 5 years Qty: 1 RF: 0 topiramate [Topamax] 50 mg tablet 50 mg PO BID RF: 0 phentermine 37.5 mg capsule 37.5 mg PO DAILY RF: 0 oxymetazoline [Nasal [place] Sinus] 0.05 % [place],Non-Aerosol 2 spray INTRANASAL Q12H PRN (Reason: Nasal Congestion) RF: 0 Discharge Orders: Discharge ED (Routine); Ordered 07/21/21 Ordered By: Sharmila Beltrán Referrals: Mandy Mcdermott FNP [Primary Care Provider] - Discharge Diet: Advance as tolerated Discharge Activity: Use walker/crutches as instructed Patient Instructions: Opioid Safety Activity Restrictions/Additional Instructions: Rest, ice, elevation recommended. Take 800 mg ibuprofen four times daily x7 days. Use crutches as discussed and increased activity as tolerated. Follow-up with PCP in 10 to 14 days if no improvement. Return to the ER with any new or worsening symptoms. Coding Level of Care Code ED Environmental Emergencies Planner for Uriah Fwd Exam Comprehensive
== END 2021-07-21 10:34 | disposition home or self-care (01) ==
PROVIDERS: Emergency Provider Physician Assistant; PCP Registered Nurse
DX: S93.402A Sprain of unspecified ligament of left ankle, initial encounter (principal); S96.912A Strain of unspecified muscle and tendon at ankle and foot level, left foot, initial encounter; I10 Essential (primary) hypertension; F17.210 Nicotine dependence, cigarettes, uncomplicated; W01.0XXA Fall on same level from slipping, tripping and stumbling without subsequent striking against object, initial encounter
CPT/HCPCS: 73610; 99283; E0114

== ENCOUNTER 2022-07-07 08:46 | Emergency (ER) | payer BC, MEDICAID, SELFPAY ==
--- NOTE | 2022-07-07 08:52 | ED_ITS ---
HPI - General Adult General: Chief complaint: General Medical Stated complaint: Pretty sick and almost passed out Time Seen by Provider: 07/07/22 08:49 Source: patient Mode of arrival: ambulatory History of Present Illness: 26-year-old female presents emergency room complaining of cough congestion for the last 2 months. She has not been seen for it. Today while at work she had a near syncopal episode what happened when she was simply standing another while she was coming down from a ladder she did not actually pass out or lose consciousness but felt as if she might. Cough minimally productive no hemoptysis. Patient is currently on her period. Denies any fever sweats chills no abdominal pain or chest pain. Onset (ago): month(s) (2) Severity: mild Pain Consistency: constant Relieving factors: none Exacerbating factors: none Associated symptoms: Reports cough; Deny chest pain, dyspnea, malaise, nausea, rash or vomiting Treatments prior to arrival: none Review of Systems 2 Const: Denies: fever(s), chills, body aches, change in appetite, fatigue or malaise ENMT: Denies: throat pain, ear or mastoid pain, nasal discharge or nasal congestion Card: Denies: chest pain, edema, dyspnea on exertion or orthopnea Resp: Denies: dyspnea, productive cough or non-productive cough GI: Denies: abdominal pain, nausea, vomiting, hematemesis, coffee ground emesis, diarrhea, constipation, bloating, hematochezia or melena : Denies: flank pain, difficulty voiding, dysuria, urinary frequency or urinary urgency Skin/Breast: Denies: rash or pruritus [facility] PFSH: Medical History (Updated 07/07/22 @ 11:02 by Rafat Hanna DO) History of hypertension She states that she has had high blood pressure that developed after the of her last child. Review of records shows 1 elevated blood pressure when patient came in for evaluation of depression however all other blood pressures were within normal limits. States she was on medication for one month after delivery but nothing since then. She denies following up with after delivery. in 2018 she did not have issues with HTN. No pertinent past medical history Denies history of: Denies diabetes, asthma, seizures,bleeding or clotting disorders, DVT/PE, genital herpes PCP: THERESE Gonzalez PCOS (polycystic ovarian syndrome) Gives history of PCOS-does not remember details. Now has been having irregular cycles. Surgical History History of 01/23/2016---primary low transverse section. Performed by Dr. Almonte at [facility] in [place], [place]. Delivery for arrest of dilation at 8 cm and arrest of descent at -1 station. History of laparoscopy 02/19/2015--performed by Dr. Gonzalez De La Torre at [facility] for a cyst in her ovary History of tonsillectomy (~2008) 2008 Family History Mother Hypertension Cervical cancer, Onset Age: 30 questionable if cancer; most likely precancer Father Hypertension Grandmother Hypertension Paternal Maternal Stroke Paternal grandmother Breast cancer, Onset Age: 50 Paternal grandmother Grandfather Hypertension Paternal Maternal Brother Stroke Family/Other Uterine cancer Maternal Aunt Denies family history of Colon cancer Ovarian cancer Diabetes Heart disease Hyperlipidemia Family history of thyroid problem Social History Smoking and tobacco status: current every day smoker cigarettes [ Other cigarette details: 4-6 cigarettes/day] Alcohol intake: unknown Additional social history: - Female Reproductive History: Date of last menstrual period: 08/14/19 Physical Exam Const: GENERAL APPEARANCE: cooperative and comfortable ORIENTATION/CONSCIOUSNESS: Yes awake, Yes oriented to person, Yes oriented to place and Yes oriented to time HENMT: COMMON NORMALS: normocephalic, atraumatic, hearing grossly normal bilaterally, external ears normal, EAC's normal, TM's normal bilaterally, Normal nasal mucous membranes and turbinates present, moist oral mucous membranes and oropharynx normal HEAD & SCALP: normocephalic and atraumatic NOSE: Normal nasal mucous membranes and turbinates present EXTERNAL EAR: Yes external ears normal EXTERNAL AUDITORY CANAL: EAC's normal TYMPANIC MEMBRANE: TM's normal bilaterally Eye: COMMON NORMALS: Equal, round and reactive pupils present, EOMs intact bilaterally, conjunctivae normal and no scleral icterus CONJUNCTIVA: Yes conjunctivae normal PUPIL: Yes Equal, round and reactive pupils present Neck/C-Spine: COMMON NORMALS: full ROM, no lymphadenopathy, supple and no JVD Lymph: LYMPHATIC: no lymphadenopathy noted and no lymphedema noted Resp: COMMON NORMALS: normal respiratory effort, No retractions, No use of accessory muscles and clear to auscultation bilaterally AUSCULTATION: clear to auscultation bilaterally Cardio: COMMON NORMALS: no JVD, regular rate, regular rhythm and No murmurs present (Cardio) RATE: regular rate RHYTHM: regular rhythm GI: COMMON NORMALS: Soft to palpation and No hepatosplenomegaly present AUSCULTATION: Yes normoactive bowel sounds PALPATION: Yes Soft to palpation, No Tenderness to palpation present (GI), No Guarding due to palpation present (GI) and Yes No hepatosplenomegaly present Extremity: COMMON NORMALS: normal to inspection, capillary refill normal, no clubbing, cyanosis or edema, no calf tenderness and no pedal edema Neuro: SENSORIUM/ORIENTATION: Yes oriented to person, Yes oriented to place and Yes oriented to time Skin: COMMON NORMALS: no rashes or lesions noted GENERAL SKIN EXAM: no rashes or lesions noted Course Vital Signs: Vital signs: Vital Signs Temperature 98.5 F 07/07/22 08:53 Pulse Rate 83 07/07/22 09:34 Respiratory Rate 16 07/07/22 09:34 Blood Pressure 157/95 07/07/22 09:34 Pulse Oximetry 99 07/07/22 09:34 Oxygen Delivery Me thod 07/07/22 09:34 MDM - General Adult Medical Decision Making Labs reviewed vital signs reviewed including orthostatics. She tells me she has not been using the oxymetazoline or the phentermine recommend that she stop both of those. Fluids rest. Sounds like she may be getting a viral-like syndrome from some of her symptoms although her exam does not indicate anything beyond that no evidence of pneumonia. Remainder of exam is unremarkable. Follow-up with her primary care if not improving. Lab Data 07/07/22 09:21 07/07/22 09:21 Laboratory Results WBC 11.2 10^3/uL (4.0-10.0) H 07/07/22 09:21 RBC 4.76 10^6/uL (4.1-5.3) 07/07/22 09:21 Hgb 14.0 g/dL (11.5-15.3) 07/07/22 09:21 Hct 43.2 % (37.0-47.0) 07/07/22 09:21 MCV 90.8 fl (81-99) 07/07/22 09:21 MCH 29.4 pg (28.0-34.0) 07/07/22 09:21 MCHC 32.4 g/dL (30.0-36.0) 07/07/22 09:21 RDW 13.6 % (12.1-15.1) 07/07/22 09:21 Plt Count 267 10^3/cmm (130-400) 07/07/22 09:21 MPV 10.1 fL (7.4-10.4) 07/07/22 09:21 Neut % (Auto) 69.9 % 07/07/22 09:21 Lymph % (Auto) 18.7 % 07/07/22 09:21 [place] % (Auto) 8.6 % 07/07/22 09:21 Eos % (Auto) 2.0 % 07/07/22 09:21 Baso % (Auto) 0.5 % 07/07/22 09:21 Neut # (Auto) 7.80 10^3/uL (1.8-7.7) H 07/07/22 09:21 Lymph # (Auto) 2.1 10^3/uL (0.8-4.8) 07/07/22 09:21 [place] # (Auto) 1.0 10^3/uL (0.2-0.9) H 07/07/22 09:21 Eos # (Auto) 0.2 10^3/uL (0.0-0.8) 07/07/22 09:21 Baso # (Auto) 0.1 10^3/uL (0.0-0.1) 07/07/22 09:21 Nucleated RBC % (auto) 0 % 07/07/22 09:21 Nucleated RBCs # 0.0 /100WBC 07/07/22 09:21 Sodium 137 mmol/L (136-145) 07/07/22 09:21 Potassium 4.0 mmol/L (3.5-5.1) 07/07/22 09:21 Chloride 100 mmol/L (98-107) 07/07/22 09:21 Carbon Dioxide 28 mmol/L (22-29) 07/07/22 09:21 Anion Gap 13.0 (5-19) 07/07/22 09:21 BUN 13 mg/dL (6-20) 07/07/22 09:21 Creatinine 0.6 mg/dL (0.5-0.9) 07/07/22 09:21 GFR Calculation 120.8 mL/min (90-130) 07/07/22 09:21 Glucose 92 mg/dL (65-115) 07/07/22 09:21 Calculated Osmolality 284 mOsm/kg (285-295) L 07/07/22 09:21 Calcium 9.2 mg/dL (8.5-10.5) 07/07/22 09:21 Total Bilirubin 0.2 mg/dL (0.15-1.2) 07/07/22 09:21 AST 20 U/L (0-32) 07/07/22 09:21 ALT 21 U/L (0-33) 07/07/22 09:21 Alkaline Phosphatase 106 U/L (35-105) H 07/07/22 09:21 Total Protein 7.4 g/dL (6.6-8.7) 07/07/22 09:21 Albumin 4.4 g/dL (3.5-5.2) 07/07/22 09:21 Globulin 3.0 g/dL (1.3-4.6) 07/07/22 09:21 HCG, Qual Negative (Negative) 07/07/22 09:21 Urine Color Yellow (Yellow) 07/07/22 09:07 Urine Appearance Clear (CLEAR) 07/07/22 09:07 Urine pH 8 (5-7) H 07/07/22 09:07 Ur Specific Evans 1.010 (1.005-1.030) 07/07/22 09:07 Urine Protein Neg (Negative) 07/07/22 09:07 Urine Glucose (UA) Norm (Normal) 07/07/22 09:07 Urine Ketones Negative (Negative) 07/07/22 09:07 Urine Blood Neg (Negative) 07/07/22 09:07 Urine Nitrate Negative (Negative) 07/07/22 09:07 Urine Bilirubin Neg (Negative) 07/07/22 09:07 Prot Sulfosalicylic Acd Negative (Negative) 07/07/22 09:07 Urine Urobilinogen Norm mg/dL (Negative) 07/07/22 09:07 Ur Leukocyte Esterase Negative (Negative) 07/07/22 09:07 Discharge Plan Discharge Patient Disposition: Home Clinical Impression: Near syncope, Viral syndrome Condition: Stable Prescriptions: New albuterol sulfate 90 mcg/actuation HFA aerosol inhaler 2 inh INHALATION Q4H PRN (Reason: shortness of breath or wheezing) Qty: 18 0RF Discontinued phentermine 37.5 mg capsule 37.5 mg PO DAILY Rx Instructions: must administer 30 minutes before or 1-2 hours after breakfast oxymetazoline [Nasal [place] Sinus] 0.05 % [place],Non-Aerosol 2 spray INTRANASAL Q12H PRN (Reason: Nasal Congestion) No Action Mirena 20 mcg/24 hours (6 yrs) 52 mg intrauterine device 1 device intrauterine .every 5 years Qty: 1 0RF topiramate [Topamax] 50 mg tablet 50 mg PO BID Discharge Orders: Discharge ED (Routine); Ordered 07/07/22 Ordered By: Rafat Hanna Referrals: Mandy Mcdermott FNP [Primary Care Provider] - Discharge Diet: Usual diet Discharge Activity: Increase activity as tolerated Patient Instructions: Opioid Safety, Pain Management Activity Restrictions/Additional Instructions: You were seen for a near syncopal episode your blood pressure is mildly elevated the remainder of your labs are normal. Would recommend that you stop taking phentermine and stop using oxymetazoline as both of these can contribute to elevated blood pressure. Chronic use the oxymetazoline on can cause rebound sinus congestion. Follow-up with your primary care doctor within the week if not improving. Coding Level of Care Code ED Detective Private Eye for Uriah Fwd Exam Comprehensive
[2022-07-07 08:53] VITALS: BP 155/104; PULSE 85; RESP 20; TEMP 36.9; O2SAT 100
[2022-07-07 09:20] VITALS: BP 128/94; BP 147/94; BP 157/95; PULSE 82; PULSE 84; PULSE 86
[2022-07-07] MEDS: sodium chloride 0.9% 1,000 ML 999 ML IV (09:27)
[2022-07-07 09:34] VITALS: BP 157/95; PULSE 83; RESP 16; O2SAT 99
[2022-07-07 09:55] LABS: Add Urine Microscopic? NO; Charge for UA Resulting for Rev
[2022-07-07 10:12] LABS: Basophils # 0.1 10^3/uL (0.0-0.1); Basophils % 0.5 %; Eosinophils # 0.2 10^3/uL (0.0-0.8); Hematocrit 43.2 % (37.0-47.0); Lymphocytes # 2.1 10^3/uL (0.8-4.8); Lymphocytes % 18.7 %; Mean Corpuscular HGB Conc 32.4 g/dL (30.0-36.0); Mean Corpuscular Hemoglobin 29.4 pg (28.0-34.0); Mean Corpuscular Volume 90.8 fl (81-99); Mean Platelet Volume 10.1 fL (7.4-10.4); Monocytes % 8.6 %; Neutrophils % 69.9 %; Nucleated Red Blood Cells % 0 %; Platelet Count 267 10^3/cmm (130-400); Red Blood Count 4.76 10^6/uL (4.1-5.3); Red Cell Distribution Width 13.6 % (12.1-15.1); White Blood Count 11.2 10^3/uL (4.0-10.0)
[2022-07-07 10:24] LABS: Bilirubin Urine Neg (Negative); Blood Urine Neg (Negative); Glucose Urine UA Norm (Normal); Ketones Urine Negative (Negative); Leukocyte Esterase Urine Negative (Negative); Nitrate Urine Negative (Negative); Protein Urine Neg (Negative); Sulfosalicylic Acid Urine Negative (Negative); Urine Appearance Clear (CLEAR); Urine Color Yellow (Yellow); Urobilinogen Urine Norm (Negative); pH Urine 8 (5-7)
[2022-07-07 10:30] LABS: HCG, Serum Qual Negative (Negative)
[2022-07-07 10:39] LABS: Alanine Aminotransferase 21 U/L (0-33); Albumin Level 4.4 g/dL (3.5-5.2); Alkaline Phosphatase 106 U/L (35-105); Aspartate Amino Transferase 20 U/L (0-32); Blood Urea Nitrogen 13 mg/dL (6-20); Calcium 9.2 mg/dL (8.5-10.5); Carbon Dioxide 28 mmol/L (22-29); Chloride 100 mmol/L (98-107); Glomerular Filtration Rate 120.8 mL/min (90-130); Glucose 92 mg/dL (65-115); Osmolality Calculated 284 mOsm/kg (285-295); Sodium 137 mmol/L (136-145); Total Bilirubin 0.2 mg/dL (0.15-1.2); Total Protein 7.4 g/dL (6.6-8.7)
[2022-07-07 11:26] VITALS: BP 157/95; PULSE 83; RESP 16; O2SAT 99
== END 2022-07-07 11:28 | disposition home or self-care (01) ==
PROVIDERS: Emergency Provider Family Medicine; PCP Registered Nurse
DX: B34.9 Viral infection, unspecified (principal); R55 Syncope and collapse; F17.210 Nicotine dependence, cigarettes, uncomplicated; I10 Essential (primary) hypertension
CPT/HCPCS: 80053; 81003; 84703; 85025; 96360; 96361; 99284; J7030

== ENCOUNTER 2023-08-23 12:13 | Emergency (ER) | payer BC, MEDICAID, SELFPAY ==
[2023-08-23 12:26] VITALS: BP 144/83; PULSE 91; RESP 16; TEMP 36.7; O2SAT 99; BMI 49.4
[2023-08-23 12:51] LABS: Basophils # 0.1 10^3/uL (0.0-0.1); Basophils % 0.4 %; Eosinophils # 0.3 10^3/uL (0.0-0.8); Eosinophils % 2.1 %; Hematocrit 45.2 % (36-47); Lymphocytes % 20.5 %; Mean Corpuscular Hemoglobin 29.2 pg (27-33); Mean Corpuscular Volume 94.2 fl (85-98); Mean Platelet Volume 10.6 fL (7.4-10.4); Monocytes # 0.8 10^3/uL (0.2-0.9); Monocytes % 5.2 %; Neutrophils # 10.32 10^3/uL (1.8-7.7); Neutrophils % 71.5 %; Nucleated Red Blood Cells % 0 %; Platelet Count 210 10^3/cmm (157-399); Red Cell Distribution Width 14.7 % (12.1-15.1); White Blood Count 14.44 10^3/uL (3.29-11.43)
[2023-08-23 13:06] LABS: Alanine Aminotransferase 19 U/L (0-33); Albumin Level 4.1 g/dL (3.5-5.2); Alkaline Phosphatase 100 U/L (35-105); Blood Urea Nitrogen 11 mg/dL (6-20); Calcium 8.9 mg/dL (8.5-10.5); Carbon Dioxide 19 mmol/L (22-29); Chloride 106 mmol/L (98-107); Globulin 3.1 g/dL (1.3-4.6); Glomerular Filtration Rate 99.6 mL/min (90-130); Glucose 98 mg/dL (65-115); Lipase 41 U/L (13-60); Osmolality Calculated 287 mOsm/kg (285-295); Sodium 139 mmol/L (136-145); Total Bilirubin 0.3 mg/dL (0.15-1.2); Total Protein 7.2 g/dL (6.6-8.7)
[2023-08-23 13:12] LABS: Anion Gap 17.7 (5-19); Aspartate Amino Transferase 17 U/L (0-32); Potassium 3.7 mmol/L (3.5-5.1)
[2023-08-23 13:20] LABS: Slide Review Slide Review Perform
--- NOTE | 2023-08-23 14:35 | US_ITS ---
WS: [id number] RIGHT UPPER QUADRANT ULTRASOUND HISTORY: RUQ pain COMPARISON: None available. Liver: 14.7 cm in length. Normal size liver and echogenicity. No bile duct dilatation or mass. Portal Vein: Normal hepatopetal flow with monophasic waveform. Gallbladder: Normally distended gallbladder with numerous stones. Stones measure up to 1.1 cm in diam eter. No pericholecystic fluid. CBD: 0.3 cm Pancreas: Normal size and echogenicity. Right kidney: 10.5 cm in length. Normal size and echogenicity. No hydronephrosis or mass. Aorta and IVC: Unremarkable abdominal aorta and IVC. No ascites. IMPRESSION: Cholelithiasis without evidence for acute cholecystitis.
--- NOTE | 2023-08-23 14:36 | W.ED.ABDPA2 ---
HPI - Abdominal Pain General: Chief Complaint: Abdominal Pain Stated Complaint: upper abd pain Time Seen by Provider: 08/23/23 12:31 Source: patient Mode of arrival: ambulatory Limitations: no limitations History of Present Illness: Patient is a 28-year-old female presents to ED today with a complaint of intermittent right upper quadrant abdominal pain over the past 2 weeks. Patient states she has not found any alleviating or worsening factors to her discomfort. Eating makes her nauseous but it does not seem to affect her pain. She states several members of her family have had to have their gallbladders removed in their 20s. She is having normal bowel movements. She has not had any episodes of emesis. No fevers. MD elicited complaint: abdominal pain Pertinent past history: none Onset (ago): day(s) Pain Consistency: intermittent Location: RUQ Severity: severe Quality: sharp Radiation: none Migration to: no migration Exacerbating factors: nothing Relieving factors: nothing Associated Symptoms: Reports nausea; Denies change in bowel habits, chills, diarrhea, dysuria, fever(s), hematochezia, melena and vomiting Related Data: Patient : No Review of Systems Const: Denies: fever(s), chills, body aches, fatigue or malaise Card: Denies: chest pain Resp: Denies: dyspnea GI: Reports: abdominal pain and nausea; Denies: vomiting, diarrhea, change in bowel habits, hematochezia or melena : Denies: flank pain, difficulty voiding, dysuria, urinary frequency, urinary urgency or urinary hesitancy Musc: Denies: neck pain, back pain, extremity pain or joint pain Skin/Breast: Denies: rash Neuro: Denies: headache(s), numbness in extremities, weakness in extremities, sensory changes or dizziness [facility] ED PFSH: Medical History (Updated 08/23/23 @ 16:07 by ROBY Bhatt) No pertinent past medical history Denies history of: Denies diabetes, asthma, seizures,bleeding or clotting disorders, DVT/PE, genital herpes PCP: THERESE Gonzalez History of hypertension She states that she has had high blood pressure that developed after the of her last child. Review of records shows 1 elevated blood pressure when patient came in for evaluation of depression however all other blood pressures were within normal limits. States she was on medication for one month after delivery but nothing since then. She denies following up with after delivery. in 2018 she did not have issues with HTN. PCOS (polycystic ovarian syndrome) Gives history of PCOS-does not remember details. Now has been having irregular cycles. Surgical History History of laparoscopy 02/19/2015--performed by Dr. Gonzalez De La Torre at [facility] for a cyst in her ovary History of tonsillectomy (~2008) 2009 History of 01/23/2016---primary low transverse section. Performed by Dr. Almonte at [facility] in [place], [place]. Delivery for arrest of dilation at 8 cm and arrest of descent at -1 station. Family History Mother Hypertension Cervical cancer, Onset Age: 30 questionable if cancer; most likely precancer Father Hypertension Grandmother Hypertension Paternal Maternal Stroke Paternal grandmother Breast cancer, Onset Age: 50 Paternal grandmother Grandfather Hypertension Paternal Maternal Brother Stroke Family/Other Uterine cancer Maternal Aunt Denies family history of Colon cancer Ovarian cancer Diabetes Heart disease Hyperlipidemia Family history of thyroid problem Social History Smoking and tobacco/nicotine status: current every day tobacco/nicotine user cigarettes [ Other cigarette details: 4-6 cigarettes/day] Alcohol intake: unknown Substance/Drug Use: never Additional social history: - Physical Exam Const: COMMON NORMALS: no acute distress, patient oriented x3, no limitations, alert and well nourished GENERAL APPEARANCE: cooperative NUTRITIONAL APPEARANCE: obese morbidly obese (BMI 49.4) HENMT: COMMON NORMALS: normocephalic and atraumatic HEAD & SCALP: normal to inspection, normocephalic and atraumatic Eye: COMMON NORMALS: no scleral icterus Resp: COMMON NORMALS: normal respiratory effort and clear to auscultation bilaterally AUSCULTATION: clear to auscultation bilaterally Cardio: COMMON NORMALS: regular rate and regular rhythm RATE: regular rate RHYTHM: regular rhythm GI: COMMON NORMALS: Normal to inspection, nondistended, normoactive bowel sounds present, Soft to palpation and no masses INSPECTION: Yes normal to inspection AUSCULTATION: Yes normoactive bowel sounds PALPATION: Yes Soft to palpation, Yes Tenderness to palpation present (GI) (throughout upper abdomen but max to RUQ; + Sanders's) and Yes Guarding due to palpation present (GI) (RUQ) : COMMON NORMALS: Yes no CVA tenderness BLADDER/KIDNEY EXAM: Yes no CVA tenderness Back/Pelvis: COMMON NORMALS: no CVA tenderness and thoracic and lumbar spine normal to inspection Extremity: GENERAL: Yes normal exam except as noted Neuro: KARTIK COMA SCALE: document GCS findings Kartik coma scale eye opening: Spontaneous Kartik coma scale verbal response: Orientated [place] coma scale motor response: Obey commands Kartik coma scale total score: 15 COMMON NORMALS: patient oriented x3 SENSORIUM/ORIENTATION: Yes alert Skin: COMMON NORMALS: no rashes or lesions noted GENERAL SKIN EXAM: no rashes or lesions noted Course Vital Signs: Vital signs: Vital Signs Temperature 98.1 F 08/23/23 12:26 Pulse Rate 87 08/23/23 14:39 Respiratory Rate 14 08/23/23 14:39 Blood Pressure 144/83 08/23/23 14:39 Pulse Oximetry 93 08/23/23 14:39 Oxygen Delivery Me thod Room Air 08/23/23 14:39 MDM - Abdominal Pain Medical Decision Making Patient here for intermittent right upper quadrant pain over the last 2 weeks. She arrives with stable vital signs. On her blood work white count is 14.4. She has completely normal LFTs including tbili and lipase. Gallbladder ultrasound showing cholelithiasis without evidence for cholecystitis. She will be referred to general surgery for further evaluation. Return ED precautions given. Lab Data I reviewed the patient's lab results. 08/23/23 12:42 08/23/23 12:42 Labs/Radiology: Laboratory Results WBC 14.44 10^3/uL (3.29-11.43) H 08/23/23 12:42 RBC 4.80 10^6/uL (3.85-5.65) 08/23/23 12:42 Hgb 14.00 g/dL (11.27-16.99) 08/23/23 12:42 Hct 45.2 % (36-47) 08/23/23 12:42 MCV 94.2 fl (85-98) 08/23/23 12:42 MCH 29.2 pg (27-33) 08/23/23 12:42 MCHC 31.0 g/dL (30-55) 08/23/23 12:42 RDW 14.7 % (12.1-15.1) 08/23/23 12:42 Plt Count 210 10^3/cmm (157-399) 08/23/23 12:42 MPV 10.6 fL (7.4-10.4) H 08/23/23 12:42 Neut % (Auto) 71.5 % 08/23/23 12:42 Lymph % (Auto) 20.5 % 08/23/23 12:42 [place] % (Auto) 5.2 % 08/23/23 12:42 Eos % (Auto) 2.1 % 08/23/23 12:42 Baso % (Auto) 0.4 % 08/23/23 12:42 Neut # (Auto) 10.32 10^3/uL (1.8-7.7) H 08/23/23 12:42 Lymph # (Auto) 3.0 10^3/uL (0.8-4.8) 08/23/23 12:42 [place] # (Auto) 0.8 10^3/uL (0.2-0.9) 08/23/23 12:42 Eos # (Auto) 0.3 10^3/uL (0.0-0.8) 08/23/23 12:42 Baso # (Auto) 0.1 10^3/uL (0.0-0.1) 08/23/23 12:42 Nucleated RBC % (auto) 0 % 08/23/23 12:42 Nucleated RBCs # 0.0 /100WBC 08/23/23 12:42 Sodium 139 mmol/L (136-145) 08/23/23 12:42 Potassium 3.7 mmol/L (3.5-5.1) 08/23/23 12:42 Chloride 106 mmol/L (98-107) 08/23/23 12:42 Carbon Dioxide 19 mmol/L (22-29) L 08/23/23 12:42 Anion Gap 17.7 (5-19) 08/23/23 12:42 BUN 11 mg/dL (6-20) 08/23/23 12:42 Creatinine 0.7 mg/dL (0.5-0.9) 08/23/23 12:42 GFR Calculation 99.6 mL/min (90-130) 08/23/23 12:42 Glucose 98 mg/dL (65-115) 08/23/23 12:42 Calculated Osmolality 287 mOsm/kg (285-295) 08/23/23 12:42 Calcium 8.9 mg/dL (8.5-10.5) 08/23/23 12:42 Total Bilirubin 0.3 mg/dL (0.15-1.2) 08/23/23 12:42 AST 17 U/L (0-32) 08/23/23 12:42 ALT 19 U/L (0-33) 08/23/23 12:42 Alkaline Phosphatase 100 U/L (35-105) 08/23/23 12:42 Total Protein 7.2 g/dL (6.6-8.7) 08/23/23 12:42 Albumin 4.1 g/dL (3.5-5.2) 08/23/23 12:42 Globulin 3.1 g/dL (1.3-4.6) 08/23/23 12:42 Lipase 41 U/L (13-60) 08/23/23 12:42 All radiology interpretation(s) finalized by discharge Discharge Plan Discharge Patient Disposition: Home Clinical Impression: Biliary colic Cholelithiasis Qualifiers: Cholelithiasis location: gallbladder Cholecystitis presence: without cholecystitis Biliary obstruction: without biliary obstruction Qualified Code(s): K80.20 - Calculus of gallbladder without cholecystitis without obstruction Condition: Stable Prescriptions: New hydrocodone-acetaminophen 5-325 mg tablet 1 tab PO Q6H PRN (Reason: pain) Qty: 14 0RF ondansetron 4 mg tablet,disintegrating 4 mg PO Q8H PRN (Reason: nausea and vomiting) Qty: 14 0RF No Action Mirena 20 mcg/24 hours (6 yrs) 52 mg intrauterine device 1 device intrauterine .every 5 years Qty: 1 0RF topiramate [Topamax] 50 mg tablet 50 mg PO BID bupropion HCl 150 mg tablet sustained-release 12 hr 150 mg PO BID acetaminophen 325 mg Tablet 650 mg PO QID PRN (Reason: Pain) phentermine 37.5 mg capsule 37.5 mg PO DAILY Discharge Orders: Discharge ED (Routine); Ordered 08/23/23 Ordered By: Юлия Whitney Referrals: Mandy Mcdermott FNP [Primary Care Provider] - Patient Instructions: Cholelithiasis, Biliary Colic (ED), Gallstones (ED), Opioid Safety, Pain Management Activity Restrictions/Additional Instructions: As we discussed I will place a case management referral to get you set up with a primary care provider for further evaluation of your gallstones. As we discussed you need to return to the emergency department for worsening abdominal pain, repetitive episodes of vomiting, yellowing to your skin or eyes, fevers greater than 100.4, generally feeling worse or unwell, or any other concerns you may have. As we discussed symptoms can sometimes be controlled with diet so avoiding greasy or fatty foods may help. Coding Level of Care Code ED Purchasing Associate for Uriah Singletary
[2023-08-23 14:39] VITALS: BP 144/83; PULSE 87; RESP 14; O2SAT 93
[2023-08-23 16:19] LABS: HCG, Serum Qual Negative (Negative)
[2023-08-23 16:31] VITALS: BP 144/83; PULSE 87; RESP 14; TEMP 36.7; O2SAT 93
--- NOTE | 2023-08-26 08:59 | DCPLANNER ---
Message was sent to general surgery on 08/26/23 at 0900. Clinic to contact patient.
== END 2023-08-23 16:31 | disposition home or self-care (01) ==
PROVIDERS: Emergency Medicine; Emergency Provider Physician Assistant; PCP Registered Nurse
DX: K80.20 Calculus of gallbladder without cholecystitis without obstruction (principal); F17.210 Nicotine dependence, cigarettes, uncomplicated; I10 Essential (primary) hypertension
CPT/HCPCS: 36415; 76705; 80053; 83690; 84703; 85025; 99284

== ENCOUNTER 2023-12-11 23:34 | Emergency (ER) | payer BC, MEDICAID, SELFPAY ==
[2023-12-11 23:55] VITALS: BP 147/81; PULSE 81; RESP 18; TEMP 36.7; O2SAT 98
--- NOTE | 2023-12-12 00:22 | XRR_ITS ---
PROCEDURE INFORMATION: Exam: XR Abdomen Exam date and time: 12/12/2023 12:26 AM Age: 28 years old Clinical indication: Abdominal pain; Prior surgery; Surgery date: 6+ months; Surgery type: Gb TECHNIQUE: Imaging protocol: Radiologic exam of the abdomen. Views: 2 Views. Upright and supine views. COMPARISON: CT abdomen pelvis w con* [id number] 09/13/2019 8:54 PM FINDINGS: Gastrointestinal tract: Mild retained feces. Intraperitoneal space: Normal. No free air. Organs: Interval cholecystectomy since the previous exam. Bones/joints: Unremarkable for age. Soft tissues: Examination is limited secondary to body habitus. XR/XR acute abdomen series [id number] IMPRESSION: 1. Interval cholecystectomy since the previous exam. 2. Mild retained feces.
--- NOTE | 2023-12-12 00:24 | ED_ITS ---
HPI - Abdominal Pain 2 General: Chief Complaint: Abdominal Pain Stated Complaint: sudden stomach pain and instant bloating n/ Time Seen by Provider: 12/12/23 00:18 History of Present Illness: 28-year-old female who presents to the e mergency room with abdominal pain. She has had a history of a cholecystectomy and abdominal surgeries in the past. Says today she felt like she needed to burp and then suddenly developed a sharp abdominal pain in her mid abdomen and now she feels like her abdomen is very bloated. She states she has had nausea but cannot throw up. She has had some dry heaves. Pain is in her upper abdomen. No fevers. No altered mental status. No chest pain. No shortness of breath. Review of Systems 2 Narrative: Constitutional symptoms: Negative except as documented in HPI. Skin symptoms: Negative except as documented in HPI. Eye symptoms: Negative except as documented in HPI. ENMT symptoms: Negative except as documented in HPI. Respiratory symptoms: Negative except as documented in HPI. Cardiovascular symptoms: Negative except as documented in HPI. Gastrointestinal symptoms: Negative except as documented in HPI. Genitourinary symptoms: Negative except as documented in HPI. Musculoskeletal symptoms: Negative except as documented in HPI. Neurologic symptoms: Negative except as documented in HPI. Psychiatric symptoms: Negative except as documented in HPI. Endocrine symptoms: Negative except as documented in HPI. PFSH ED 2 PFSH: Medical History (Updated 12/12/23 @ 02:04 by Wendy Sin MD) No pertinent past medical history Denies history of: Denies diabetes, asthma, seizures,bleeding or clotting disorders, DVT/PE, genital herpes PCP: THERESE Gonzalez History of hypertension She states that she has had high blood pressure that developed after the of her last child. Review of records shows 1 elevated blood pressure when patient came in for evaluation of depression however all other blood pressures were within normal limits. States she was on medication for one month after delivery but nothing since then. She denies following up with after delivery. in 2018 she did not have issues with HTN. PCOS (polycystic ovarian syndrome) Gives history of PCOS-does not remember details. Now has been having irregular cycles. Surgical History History of laparoscopy 02/19/2015--performed by Dr. Gonzalez De La Torre at [facility] for a cyst in her ovary History of tonsillectomy (~2008) 2009 History of 01/23/2016---primary low transverse section. Performed by Dr. Almonte at in [place], [place]. Delivery for arrest of dilation at 8 cm and arrest of descent at -1 station. Family History Mother Hypertension Cervical cancer, Onset Age: 30 questionable if cancer; most likely precancer Father Hypertension Grandmother Hypertension Paternal Maternal Stroke Paternal grandmother Breast cancer, Onset Age: 50 Paternal grandmother Grandfather Hypertension Paternal Maternal Brother Stroke Family/Other Uterine cancer Maternal Aunt Denies family history of Colon cancer Ovarian cancer Diabetes Heart disease Hyperlipidemia Family history of thyroid problem Social History Smoking and tobacco/nicotine status: current every day tobacco/nicotine user cigarettes [ Other cigarette details: 4-6 cigarettes/day] Alcohol intake: unknown Substance/Drug Use: never Additional social history: - Physical Exam 2 Narrative: EXAM NARRATIVE: General: Alert, no acute distress. Skin: Warm, dry. Head: Normocephalic, atraumatic. Neck: Supple, trachea midline. Eye: Extraocular movements are intact. Ears, nose, mouth and throat: mucosa moist. Cardiovascular: Regular, Normal peripheral perfusion. Respiratory: Lungs are clear to auscultation, respirations are non-labored, breath sounds are equal, Symmetrical chest wall expansion. Gastrointestinal: Soft, patient says her abdomen appears more distended than usual. She has some upper abdominal/epigastric tenderness, Normal bowel sounds. Musculoskeletal: Normal ROM, no deformity. Neurological: Alert and oriented, No focal neurological deficit observed. Psychiatric: Cooperative, appropriate mood & affect. Course 2 Vital Signs: Vital signs: Vital Signs Temperature 98.1 F 12/11/23 23:55 Pulse Rate 81 12/11/23 23:55 Respiratory Rate 18 12/11/23 23:55 Blood Pressure 147/81 12/11/23 23:55 Pulse Oximetry 98 12/11/23 23:55 MDM - Abdominal Pain Medical Decision Making Medical decision making: Differential diagnosis including but not limited to and based on the above HPI, review of systems and physical exam: Orders placed to evaluate differential diagnosis based on the above differential, HPI and physical exam Lab Review: Laboratory results were reviewed and interpreted by myself the emergency room physician. Lab work is unremarkable other than mild leukocytosis of 18,000. White count is 14. BUN and creatinine are 11 and 0.6. Urinalysis is negative. Acute abdominal series: chest x-ray: No acute process. No obvious infiltrates. No pneumothorax. No cardiomegaly. This was reviewed and interpreted by myself the emergency room physician Abdomen x-ray: Nonspecific bowel gas pattern. No evidence of free air or obstruction. This was reviewed and interpreted by myself the emergency room physician. Of note there is some increased stool burden. Indicating possible constipation CT of the abdomen pelvis with contrast: No evidence of any acute process. This was reviewed and interpreted by myself the emergency room physician. I also reviewed the radiology report. I reviewed the patient's medical record. Reexamination: Patient remained stable. She is improved with some pain medications. No increased work of breathing. No altered mental status. Assessment and plan: Abdominal pain Constipation -Extensive workup reveals no real acute process. She does have some signs of constipation so we can treat that and then I will have her follow-up with her primary in the next few days. ?IV Dilaudid IV Zofran and IV Pepcid in the emergency room. Also giving a dose of mag citrate - Discharged home - Discussed findings and plan with patient. Answered any questions. - All laboratory values were reviewed and interpreted personally by myself, the ER physician - All imaging was reviewed and interpreted personally by myself, the ER physician. - Evaluation and treatment of this problem were appropriate in the emergency setting Lab Data 12/12/23 00:34 12/12/23 00:34 Labs/Radiology: Radiology Impressions Chest/Abdomen X-ray 12/12/23 00:22 IMPRESSION: 1. Interval cholecystectomy since the previous exam. 2. Mild retained feces. Abdomen/Pelvis CT 12/12/23 01:17 IMPRESSION: 1. IUD within the uterus. 2. Cholecystectomy. Laboratory Results WBC 18.56 10^3/uL (3.29-11.43) H 12/12/23 00:34 RBC 4.86 10^6/uL (3.85-5.65) 12/12/23 00:34 Hgb 14.20 g/dL (11.27-16.99) 12/12/23 00:34 Hct 43.2 % (36-47) 12/12/23 00:34 MCV 88.9 fl (85-98) 12/12/23 00:34 MCH 29.2 pg (27-33) 12/12/23 00:34 MCHC 32.9 g/dL (30-55) 12/12/23 00:34 RDW 13.4 % (12.1-15.1) 12/12/23 00:34 Plt Count 284 10^3/cmm (157-399) 12/12/23 00:34 MPV 10.0 fL (7.4-10.4) 12/12/23 00:34 Neut % (Auto) 78.1 % 12/12/23 00:34 Lymph % (Auto) 15.6 % 12/12/23 00:34 [place] % (Auto) 4.9 % 12/12/23 00:34 Eos % (Auto) 0.8 % 12/12/23 00:34 Baso % (Auto) 0.3 % 12/12/23 00:34 Neut # (Auto) 14.49 10^3/uL (1.8-7.7) H 12/12/23 00:34 Lymph # (Auto) 2.9 10^3/uL (0.8-4.8) 12/12/23 00:34 [place] # (Auto) 0.9 10^3/uL (0.2-0.9) 12/12/23 00:34 Eos # (Auto) 0.2 10^3/uL (0.0-0.8) 12/12/23 00:34 Baso # (Auto) 0.1 10^3/uL (0.0-0.1) 12/12/23 00:34 Nucleated RBC % (auto) 0 % 12/12/23 00:34 Nucleated RBCs # 0.0 /100WBC 12/12/23 00:34 Sodium 140 mmol/L (136-145) 12/12/23 00:34 Potassium 4.2 mmol/L (3.5-5.1) 12/12/23 00:34 Chloride 104 mmol/L (98-107) 12/12/23 00:34 Carbon Dioxide 24 mmol/L (22-29) 12/12/23 00:34 Anion Gap 16.2 (5-19) 12/12/23 00:34 BUN 11 mg/dL (6-20) 12/12/23 00:34 Creatinine 0.6 mg/dL (0.5-0.9) 12/12/23 00:34 GFR Calculation 119.0 mL/min (90-130) 12/12/23 00:34 Glucose 97 mg/dL (65-115) 12/12/23 00:34 Calculated Osmolality 289 mOsm/kg (285-295) 12/12/23 00:34 Lactic Acid 1.3 mmol/L (0.5-2.2) 12/12/23 00:34 Calcium 9.1 mg/dL (8.5-10.5) 12/12/23 00:34 Total Bilirubin 0.2 mg/dL (0.15-1.2) 12/12/23 00:34 AST 30 U/L (0-32) 12/12/23 00:34 ALT 38 U/L (0-33) H 12/12/23 00:34 Alkaline Phosphatase 101 U/L (35-105) 12/12/23 00:34 C-Reactive Protein 6.0 mg/L (0.0-4.9) H 12/12/23 00:34 Total Protein 7.0 g/dL (6.6-8.7) 12/12/23 00:34 Albumin 3.9 g/dL (3.5-5.2) 12/12/23 00:34 Globulin 3.1 g/dL (1.3-4.6) 12/12/23 00:34 HCG, Qual Negative (Negative) 12/12/23 00:06 Urine Color Yellow (Yellow) 12/12/23 00:06 Urine Appearance Clear (CLEAR) 12/12/23 00:06 Urine pH 8 (5-7) H 12/12/23 00:06 Ur Specific [place] 1.015 (1.005-1.030) 12/12/23 00:06 Urine Protein Neg (Negative) 12/12/23 00:06 Urine Glucose (UA) Norm (Normal) 12/12/23 00:06 Urine Ketones Negative (Negative) 12/12/23 00:06 Urine Blood Neg (Negative) 12/12/23 00:06 Urine Nitrate Negative (Negative) 12/12/23 00:06 Urine Bilirubin Neg (Negative) 12/12/23 00:06 Prot Sulfosalicylic Acd Negative (Negative) 12/12/23 00:06 Urine Urobilinogen Neg mg/dL (Negative) 12/12/23 00:06 Ur Leukocyte Esterase Negative (Negative) 12/12/23 00:06 Urine RBC 0-4 /hpf (0-2) H 12/12/23 00:06 Urine WBC 0-4 /hpf (0-5) H 12/12/23 00:06 Ur Squamous Epith Cells 0-4 /hpf (0-5) H 12/12/23 00:06 Amorphous Sediment Not Reportable 12/12/23 00:06 Urine Bacteria Trace /hpf (NONE) 12/12/23 00:06 Urine Mucus 2+ /hpf 12/12/23 00:06 All radiology interpretation(s) finalized by discharge Discharge Plan Discharge Patient Disposition: Home Clinical Impression: Constipation Abdominal pain Qualifiers: Abdominal location: epigastric Qualified Code(s): R10.13 - Epigastric pain Condition: Stable Prescriptions: New famotidine 40 mg tablet 40 mg PO DAILY Qty: 7 0RF tramadol 50 mg tablet 50 mg PO Q8H PRN (Reason: pain) Qty: 20 0RF Miralax 17 gram/dose powder 17 g PO DAILY Qty: 510 0RF Rx Instructions: Take 1-2 scoops daily for the next 3 months to keep stools soft No Action Mirena 20 mcg/24 hours (6 yrs) 52 mg intrauterine device 1 device intrauterine .every 5 years Qty: 1 0RF topiramate [Topamax] 50 mg tablet 50 mg PO BID bupropion HCl 150 mg tablet sustained-release 12 hr 150 mg PO BID acetaminophen 325 mg Tablet 650 mg PO QID PRN (Reason: Pain) phentermine 37.5 mg capsule 37.5 mg PO DAILY hydrocodone-acetaminophen 5-325 mg tablet 1 tab PO Q6H PRN (Reason: pain) Qty: 14 0RF ondansetron 4 mg tablet,disintegrating 4 mg PO Q8H PRN (Reason: nausea and vomiting) Qty: 14 0RF Discharge Orders: Discharge ED (Routine); Ordered 12/12/23 Ordered By: Wendy Sin Referrals: Mcdermott,Mandy, RETORT CONDENSER ATTENDANT [Primary Care Provider] - Discharge Diet: Advance as tolerated Discharge Activity: Increase activity as tolerated Patient Instructions: Constipation (ED), Abdominal Pain (ED) Activity Restrictions/Additional Instructions: Thank you for choosing [facility] for your healthcare needs today. Please realize this is an emergency room and that we are providing you with a medical screening exam and this may not be complete and all inclusive of all the testing and or work up that you may need to determine your ailment or severity of your illness. You have been screened and evaluated and felt safe for discharge. Health conditions do change or evolve sometimes and as such it is important that you follow up with your Primary Doctor to be re checked, 3-5 days is a general good time frame for follow up. You are always welcome to return to the ED for re assessment if your symptoms are worsening or you have new concerns Coding Level of Care Code ED Lithography Contact Worker for Uriah Singletary
[2023-12-12 00:32] LABS: HCG Qualitative Urine. Negative (Negative)
[2023-12-12 00:41] LABS: Basophils # 0.1 10^3/uL (0.0-0.1); Basophils % 0.3 %; Eosinophils # 0.2 10^3/uL (0.0-0.8); Eosinophils % 0.8 %; Hematocrit 43.2 % (36-47); Lymphocytes # 2.9 10^3/uL (0.8-4.8); Lymphocytes % 15.6 %; Mean Corpuscular HGB Conc 32.9 g/dL (30-55); Mean Corpuscular Hemoglobin 29.2 pg (27-33); Mean Corpuscular Volume 88.9 fl (85-98); Monocytes # 0.9 10^3/uL (0.2-0.9); Monocytes % 4.9 %; Neutrophils # 14.49 10^3/uL (1.8-7.7); Neutrophils % 78.1 %; Nucleated Red Blood Cells % 0 %; Platelet Count 284 10^3/cmm (157-399); Red Blood Count 4.86 10^6/uL (3.85-5.65); Red Cell Distribution Width 13.4 % (12.1-15.1); White Blood Count 18.56 10^3/uL (3.29-11.43)
[2023-12-12 00:47] LABS: Add Urine Culture? No; Bacteria Urine TRACE /hpf; Bilirubin Urine Neg (Negative); Blood Urine Neg (Negative); Glucose Urine UA Norm (Normal); Ketones Urine Negative (Negative); Leukocyte Esterase Urine Negative (Negative); Mucus Urine 2+ /hpf; Nitrate Urine Negative (Negative); Protein Urine Neg (Negative); RBC Urine 0-4 /hpf (0-2); Specific Gravity, Urine 1.015 (1.005-1.030); Squamous Epithelial Cell Urine 0-4 /hpf (0-5); Sulfosalicylic Acid Urine Negative (Negative); Urine Appearance Clear (CLEAR); Urine Color Yellow (Yellow); Urobilinogen Urine Neg (Negative); WBC Urine 0-4 /hpf (0-5); pH Urine 8 (5-7)
[2023-12-12 01:00] LABS: Alanine Aminotransferase 38 U/L (0-33); Albumin Level 3.9 g/dL (3.5-5.2); Alkaline Phosphatase 101 U/L (35-105); Aspartate Amino Transferase 30 U/L (0-32); Blood Urea Nitrogen 11 mg/dL (6-20); Calcium 9.1 mg/dL (8.5-10.5); Carbon Dioxide 24 mmol/L (22-29); Chloride 104 mmol/L (98-107); Creatinine Clr Calc Pharmacy 188.2774; Globulin 3.1 g/dL (1.3-4.6); Glucose 97 mg/dL (65-115); Osmolality Calculated 289 mOsm/kg (285-295); Sodium 140 mmol/L (136-145); Total Bilirubin 0.2 mg/dL (0.15-1.2)
[2023-12-12 01:01] LABS: Lactic Sepsis W/Reflex 1.3 mmol/L (0.5-2.2)
[2023-12-12 01:12] LABS: Anion Gap 16.2 (5-19); Potassium 4.2 mmol/L (3.5-5.1)
--- NOTE | 2023-12-12 01:17 | CTR_ITS ---
PROCEDURE INFORMATION: Exam: CT Abdomen And Pelvis With Contrast Exam date and time: 12/12/2023 1:33 AM Age: 28 years old Clinical indication: Abdominal tenderness; Prior surgery; Surgery date: 6+ months; Surgery type: Gb; Additional info: Abdominal pain TECHNIQUE: Imaging protocol: Computed tomography of the abdomen and pelvis with contrast. Radiation optimization: All CT scans at this facility use at least one of these dose optimization techniques: automated exposure control; mA and/or kV adjustment per patient size (includes targeted exams where dose is matched to clinical indication); or iterative reconstruction. Contrast material: OMNI 350; Contrast volume: 100 ml; Contrast route: INTRAVENOUS (IV); COMPARISON: CR (ABDOMEN, ) 12/12/2023 12:26 AM RADIATION DOSE METRICS: Total DLP (mGy-cm): 1229.1 FINDINGS: Liver: Normal. No mass. Gallbladder and bile ducts: Surgical clips in the gallbladder fossa consistent with cholecystectomy. Pancreas: Normal. No ductal dilation. Spleen: Normal. No splenomegaly. Adrenal glands: Normal. No mass. Kidneys and ureters: Normal. No hydronephrosis. Stomach and bowel: Unremarkable. No obstruction. No mucosal thickening. Appendix: No evidence of appendicitis. Intraperitoneal space: Unremarkable. No free air. No significant fluid collection. Vasculature: Calcification of the abdominal aorta and/or iliac arteries consistent with atherosclerotic vessel disease. Lymph nodes: Unremarkable. No enlarged lymph nodes. Urinary bladder: Unremarkable as visualized. Reproductive: IUD within the uterus. Bones/joints: Right L5 pars defect. Soft tissues: Umbilical/periumbilical hernia containing fat. CT/CT abdomen pelvis w con* [id number] IMPRESSION: 1. IUD within the uterus. 2. Cholecystectomy.
[2023-12-12] MEDS: iohexol 350 mg/mL 500 mL Btl (per mL) IV (01:34)
[2023-12-12] MEDS: ondansetron 2 mg/ML SDV 2 mL 8 MG IVP (02:02)
[2023-12-12] MEDS: HYDROmorphone 1 mg/mL INJ 1 mL IVP (02:02)
[2023-12-12] MEDS: sodium chloride 0.9% 1,000 ML 999 ML IV (02:03)
[2023-12-12] MEDS: famotidine 20 mg/2 mL INJ 40 MG IVP (02:32)
[2023-12-12] MEDS: magnesium citrate Btl 296 mL PO (02:35)
[2023-12-12 02:37] VITALS: BP 138/71; PULSE 82; RESP 16; O2SAT 98
== END 2023-12-12 02:38 | disposition home or self-care (01) ==
PROVIDERS: Emergency Provider Emergency Medicine; PCP Registered Nurse
DX: K59.00 Constipation, unspecified (principal); R10.13 Epigastric pain; F17.210 Nicotine dependence, cigarettes, uncomplicated; I10 Essential (primary) hypertension
CPT/HCPCS: 74022; 74177; 80053; 81001; 81025; 83605; 85025; 86140; 96361; 96374; 96375; 99285; J1170; J2405; J3490; J7030; Q9967

== ENCOUNTER 2024-03-13 20:29 | Emergency (ER) | payer BC, MEDICAID, SELFPAY ==
[2024-03-13 21:08] VITALS: BP 147/84; PULSE 94; RESP 16; TEMP 36.9; O2SAT 100; BMI 49.8
--- NOTE | 2024-03-13 22:03 | XRR_ITS ---
PROCEDURE INFORMATION: Exam: XR Left Shoulder Exam date and time: 03/13/2024 10:19 PM Age: 28 years old Clinical indication: Patient HX: C/O left shoulder pain. No injury. ; Additional info: Pain after lifting TECHNIQUE: Imaging protocol: Radiologic exam of the left shoulder. Views: 2 or more views. COMPARISON: CR XR chest 2V* [id number] 02/08/2020 20:48 FINDINGS: Bones/joints: There is no evidence of fracture or dislocation. The acromioclavicular joint is normal. The subacromial joint space is well-preserved. The glenohumeral joint is normal. No joint effusion is present. Soft tissues: There are no radiopaque foreign bodies in the visualized soft tissues. There are no soft tissue calcifications. XR/XR shoulder LT min 2V* [id number] IMPRESSION: Unremarkable radiographic appearance of the left shoulder.
--- NOTE | 2024-03-13 22:06 | ED_ITS ---
HPI - Extremity Problem General: Chief complaint: Extremity Problem,Nontraumatic Stated complaint: Left Shoulder Pain Time Seen by Provider: 03/13/24 21:12 Source: patient Mode of arrival: ambulatory Limitations: no limitations History of Present Illness: Patient is a 28-year-old female presenting to the emergency department complaining of left shoulder pain for the past 4 to 5 days after heavy lifting the day prior. No trauma reported. States that she has reproducible pain with any range of motion whatsoever of the left shoulder, that seems to radiate down her left rib cage and down her left arm. States she has history of previous when she was a young girl, had it worked up at that time and was told she was severely double-jointed. States that her left arm feels weak. No neck pain or other symptoms reported at this time. MD Complaint: joint pain Onset (ago): day(s) Pain Consistency: constant Location: left and upper extremity Radiation: distal Exacerbating factors: range of motion Associated symptoms: Deny chest pain, fever(s) or rash Related Data Home Medications Medication Instructions Recorded Confirmed topiramate 50 mg tablet (Topamax) 50 mg PO BID 11/28/20 08/30/23 acetaminophen 325 mg tablet 650 mg PO QID PRN Pain 08/23/23 08/30/23 bupropion HCl 150 mg tablet,12 hr 150 mg PO BID 08/23/23 08/30/23 sustained-release phentermine 37.5 mg capsule 37.5 mg PO DAILY 08/23/23 08/30/23 Previous Rx's Medication Instructions Recorded levonorgestrel 21 mcg/24 hr (up to 1 device intrauterine .every 5 06/29/20 8 years) 52 mg intrauterine device years #1 ea (Mirena) hydrocodone 5 mg-acetaminophen 325 1 tab PO Q6H PRN pain #14 tabs 08/23/23 mg tablet ondansetron 4 mg disintegrating 4 mg PO Q8H PRN nausea and 08/23/23 tablet vomiting #14 tabs famotidine 40 mg tablet 40 mg PO DAILY #7 tabs 12/12/23 polyethylene glycol 3350 17 17 g PO DAILY #510 grams 12/12/23 gram/dose oral powder (Miralax) tramadol 50 mg tablet 50 mg PO Q8H PRN pain #20 tabs 06/06/24 methocarbamol 750 mg tablet 750 mg PO Q8H 5 days #15 tabs 03/13/24 Allergies Allergy/AdvReac Type Severity Reaction Status Date / Time adhesive Allergy ALGY-Rash Verified 12/12/23 00:00 guaifenesin [From Mucinex] Allergy ALGY-Hives Verified 12/12/23 00:00 Review of Systems General: Reports: 10 or more systems reviewed and unremarkable except in HPI and below Const: Denies: fever(s) or chills Card: Denies: chest pain Resp: Denies: dyspnea or productive cough GI: Denies: abdominal pain, nausea, vomiting or diarrhea : Denies: flank pain Musc: Reports: joint pain (Left shoulder) and limited range of motion; Denies: neck pain, back pain, extremity pain, extremity swelling, joint swelling, joint redness, joint warmth or muscle weakness Skin/Breast: Denies: rash Neuro: Reports: weakness in extremities; Denies: headache(s) or numbness in extremities PFS ED PFSH: Medical History (Updated 03/13/24 @ 23:02 by ROBY Bhandari) No pertinent past medical history Denies history of: Denies diabetes, asthma, seizures,bleeding or clotting disorders, DVT/PE, genital herpes PCP: THERESE Gonzalze History of hypertension She states that she has had high blood pressure that developed after the of her last child. Review of records shows 1 elevated blood pressure when patient came in for evaluation of depression however all other blood pressures were within normal limits. States she was on medication for one month after delivery but nothing since then. She denies following up with DrGissel after delivery. in 2018 she did not have issues with HTN. PCOS (polycystic ovarian syndrome) Gives history of PCOS-does not remember details. Now has been having irregular cycles. Surgical History History of laparoscopy 02/19/2015--performed by Dr. Gonzalez De La Torre at [facility] for a cyst in her ovary History of tonsillectomy (~2008) 2008 History of 01/23/2016---primary low transverse section. Performed by Dr. Almonte at [facility] in [place], [place]. Delivery for arrest of dilation at 8 cm and arrest of descent at -1 station. Family History Mother Hypertension Cervical cancer, Onset Age: 30 questionable if cancer; most likely precancer Father Hypertension Grandmother Hypertension Paternal Maternal Stroke Paternal grandmother Breast cancer, Onset Age: 50 Paternal grandmother Grandfather Hypertension Paternal Maternal Brother Stroke Family/Other Uterine cancer Maternal Aunt Denies family history of Colon cancer Ovarian cancer Diabetes Heart disease Hyperlipidemia Family history of thyroid problem Social History Smoking and tobacco/nicotine status: current every day tobacco/nicotine user cigarettes [ Other cigarette details: 4-6 cigarettes/day] Alcohol intake: unknown Substance/Drug Use: never Additional social history: - Physical Exam Const: COMMON NORMALS: no acute distress, patient oriented x3, no limitations, alert and well nourished NUTRITIONAL APPEARANCE: obese morbidly obese HENMT: COMMON NORMALS: normocephalic and atraumatic HEAD & SCALP: normocephalic and atraumatic Neck/C-Spine: COMMON NORMALS: full ROM, supple and no meningeal signs Resp: COMMON NORMALS: normal respiratory effort, No use of accessory muscles and clear to auscultation bilaterally AUSCULTATION: clear to auscultation bilaterally Cardio: COMMON NORMALS: regular rate and regular rhythm RATE: regular rate RHYTHM: regular rhythm Extremity: COMMON NORMALS: capillary refill normal, no joint enlargement and no clubbing, cyanosis or edema NARRATIVE EXTREMITY EXAM: Patient does not attempt range of motion of the left shoulder due to pain. She endorses tenderness to palpation of the left clavicular region, left lateral shoulder joint, and left scapula. There is no bruising or other signs of trauma or deformity. Distal neurovascular status intact. Neuro: COMMON NORMALS: patient oriented x3, moves all extremities, no focal motor deficits and no sensory deficits noted SENSORIUM/ORIENTATION: Yes alert MENINGEAL SIGNS: Yes no meningeal signs Skin: COMMON NORMALS: no rashes or lesions noted GENERAL SKIN EXAM: no rashes or lesions noted Course Vital Signs: Vital signs: Vital Signs Temperature 98.5 F 03/13/24 21:08 Pulse Rate 94 03/13/24 21:08 Respiratory Rate 16 03/13/24 21:08 Blood Pressure 147/84 03/13/24 21:08 Pulse Oximetry 100 03/13/24 21:08 Oxygen Delivery Me thod Room Air 03/13/24 21:08 MDM - Extremity (Nontraumatic) Medical Decision Making Patient seen for atraumatic left shoulder pain 4 to 5 days ago, however states she works at [employer] and was lifting heavy prior to. Physical examination overall unremarkable, did exhibit some reproducible tenderness to palpation. X- ray did not demonstrate any acute findings. She does report some relief after receiving shots of Toradol, steroid, and muscle relaxer. Likely she does have a muscle spasm and will be sent home with muscle relaxers. He is encouraged to follow-up primary care for any further pain, and return precautions given. Lab Data Radiology Impressions Shoulder X-Ray 03/13/24 22:03 IMPRESSION: Unremarkable radiographic appearance of the left shoulder. All radiology interpretation(s) finalized by discharge Discharge Plan Discharge Patient Disposition: Home Clinical Impression: Muscle spasm of left shoulder Condition: Stable Prescriptions: New methocarbamol 750 mg tablet 750 mg PO Q8H 5 Days Qty: 15 0RF No Action Mirena 20 mcg/24 hours (6 yrs) 52 mg intrauterine device 1 device intrauterine .every 5 years Qty: 1 0RF topiramate [Topamax] 50 mg tablet 50 mg PO BID famotidine 40 mg tablet 40 mg PO DAILY Qty: 7 0RF tramadol 50 mg tablet 50 mg PO Q8H PRN (Reason: pain) Qty: 20 0RF Miralax 17 gram/dose powder 17 g PO DAILY Qty: 510 0RF Rx Instructions: Take 1-2 scoops daily for the next 3 months to keep stools soft bupropion HCl 150 mg tablet sustained-release 12 hr 150 mg PO BID acetaminophen 325 mg Tablet 650 mg PO QID PRN (Reason: Pain) phentermine 37.5 mg capsule 37.5 mg PO DAILY hydrocodone-acetaminophen 5-325 mg tablet 1 tab PO Q6H PRN (Reason: pain) Qty: 14 0RF ondansetron 4 mg tablet,disintegrating 4 mg PO Q8H PRN (Reason: nausea and vomiting) Qty: 14 0RF Discharge Orders: Discharge ED (Routine); Ordered 03/13/24 Ordered By: Mp Bazan Referrals: Mandy Mcdermott FNP [Primary Care Provider] - Discharge Diet: Usual diet Discharge Activity: Increase activity as tolerated Patient Instructions: Muscle Spasm (ED) Activity Restrictions/Additional Instructions: Muscle relaxers as prescribed. Continue alternating ice and heat. Tylenol and ibuprofen for pain relief. Gently increase your range of motion and do range of motion exercises as tolerated. Use work note is provided. Stand Alone Forms: Work/School Release Coding Level of Care Code ED Accounts Receivable Assistant for Uriah Singletary
[2024-03-13] MEDS: dexamethasone 10 mg/mL INJ IM (22:15)
[2024-03-13] MEDS: ketorolac 60 mg/2 mL INJ IM (22:15)
[2024-03-13] MEDS: orphenadrine 30 mg/mL Inj 2 mL 60 MG IM (22:15)
[2024-03-13 23:09] VITALS: BP 131/75; PULSE 86; RESP 14; O2SAT 97
== END 2024-03-13 23:09 | disposition home or self-care (01) ==
PROVIDERS: Emergency Provider Physician Assistant; PCP Registered Nurse
DX: M62.838 Other muscle spasm (principal); F17.210 Nicotine dependence, cigarettes, uncomplicated
CPT/HCPCS: 73030; 96372; 99284; J1100; J1885; J2360

== ENCOUNTER 2024-03-31 13:55 | Emergency (ER) | payer BC, MEDICAID, SELFPAY ==
[2024-03-31 14:01] VITALS: BP 154/82; PULSE 88; TEMP 36.4; O2SAT 99; BMI 49.8
--- NOTE | 2024-03-31 14:13 | XRR_ITS ---
PROCEDURE INFORMATION: Exam: XR Right Foot Exam date and time: 03/31/2024 2:23 PM Age: 28 years old Clinical indication: Right; Patient HX: RT foot red painful no trauma per patient; Additional info: Injury TECHNIQUE: Imaging protocol: Radiologic exam of the right foot. Views: 3 or more views. COMPARISON: CR XR ankle RT min 3V* [id number] 10/03/2019 7:55 AM FINDINGS: Bones/joints: Normal. Soft tissues: Normal. XR/XR foot RT min 3V* [id number] IMPRESSION: No acute findings.
--- NOTE | 2024-03-31 15:14 | W.ED.EXTPRO ---
HPI - Extremity Problem General: Chief complaint: Extremity Injury, Lower Stated complaint: pain in right foot Time Seen by Provider: 03/31/24 14:58 Source: patient Mode of arrival: ambulatory Limitations: no limitations History of Present Illness: Patient is a 28-year-old female presents to ED today with complaint of right foot pain over the past several weeks. No known injury or trauma. Patient states she works at [employer] and is on her feet on concrete for 9+ hours a day. She states she does wear supportive [employer] shoes with inserts. She has not noticed any redness or swelling to the extremity. She has been treating pain with ibuprofen. MD Complaint: extremity pain Onset (ago): week(s) Pain Consistency: constant Location: right and lower extremity Radiation: none Relieving factors: other (being off feet) Exacerbating factors: weight bearing and walking Associated symptoms: Reports no associated symptoms; Deny fever(s) or rash Related Data Home Medications Medication Instructions Recorded Confirmed topiramate 50 mg tablet (Topamax) 50 mg PO BID 11/28/20 08/30/23 acetaminophen 325 mg tablet 650 mg PO QID PRN Pain 08/23/23 08/30/23 bupropion HCl 150 mg tablet,12 hr 150 mg PO BID 08/23/23 08/30/23 sustained-release phentermine 37.5 mg capsule 37.5 mg PO DAILY 08/23/23 08/30/23 Previous Rx's Medication Instructions Recorded levonorgestrel 21 mcg/24 hr (up to 1 device intrauterine .every 5 06/29/20 8 years) 52 mg intrauterine device years #1 ea (Mirena) hydrocodone 5 mg-acetaminophen 325 1 tab PO Q6H PRN pain #14 tabs 08/23/23 mg tablet ondansetron 4 mg disintegrating 4 mg PO Q8H PRN nausea and 08/23/23 tablet vomiting #14 tabs famotidine 40 mg tablet 40 mg PO DAILY #7 tabs 12/12/23 polyethylene glycol 3350 17 17 g PO DAILY #510 grams 12/12/23 gram/dose oral powder (Miralax) tramadol 50 mg tablet 50 mg PO Q8H PRN pain #20 tabs 12/12/23 Allergies Allergy/AdvReac Type Severity Reaction Status Date / Time adhesive Allergy ALGY-Rash Verified 03/31/24 14:05 guaifenesin [From Mucinex] Allergy ALGY-Hives Verified 03/31/24 14:05 Review of Systems Const: Denies: fever(s) Musc: Reports: extremity pain; Denies: neck pain, back pain, extremity swelling, joint pain, joint swelling, joint redness, joint warmth, joint stiffness, limited range of motion, muscle cramps or muscle weakness Skin/Breast: Denies: rash or erythema Neuro: Denies: numbness in extremities, weakness in extremities, sensory changes or difficulty walking PFS ED PFSH: Medical History No pertinent past medical history Denies history of: Denies diabetes, asthma, seizures,bleeding or clotting disorders, DVT/PE, genital herpes PCP: THERESE Gonzalez History of hypertension She states that she has had high blood pressure that developed after the of her last child. Review of records shows 1 elevated blood pressure when patient came in for evaluation of depression however all other blood pressures were within normal limits. States she was on medication for one month after delivery but nothing since then. She denies following up with after delivery. in 2018 she did not have issues with HTN. PCOS (polycystic ovarian syndrome) Gives history of PCOS-does not remember details. Now has been having irregular cycles. Surgical History History of laparoscopy 02/19/2015--performed by Dr. Gonzalez De La Torre at [facility] for a cyst in her ovary History of tonsillectomy (~2008) 2008 History of 01/23/2016---primary low transverse section. Performed by Dr. Almonte at [facility] in [place], [place]. Delivery for arrest of dilation at 8 cm and arrest of descent at -1 station. Family History Mother Hypertension Cervical cancer, Onset Age: 30 questionable if cancer; most likely precancer Father Hypertension Grandmother Hypertension Paternal Maternal Stroke Paternal grandmother Breast cancer, Onset Age: 50 Paternal grandmother Grandfather Hypertension Paternal Maternal Brother Stroke Family/Other Uterine cancer Maternal Aunt Denies family history of Colon cancer Ovarian cancer Diabetes Heart disease Hyperlipidemia Family history of thyroid problem Social History Smoking and tobacco/nicotine status: current every day tobacco/nicotine user cigarettes [ Other cigarette details: 4-6 cigarettes/day] Alcohol intake: unknown Substance/Drug Use: never Additional social history: - Physical Exam Const: COMMON NORMALS: no acute distress, no limitations and alert GENERAL APPEARANCE: cooperative NUTRITIONAL APPEARANCE: obese morbidly obese (BMI 49.8) Extremity: COMMON NORMALS: full ROM, capillary refill normal, no joint enlargement, no clubbing, cyanosis or edema, no calf tenderness and no pedal edema GENERAL: Yes normal exam except as noted RIGHT LOWER EXTREMITY: Yes foot & digits Right foot and digits: Yes inspection (normal gross inspection ), Yes palpation (TTP lateral foot/base of 5th metatarsal), Yes ROM (normal) and Yes neurovascular exam (normal) Neuro: COMMON NORMALS: moves all extremities, no focal motor deficits and no sensory deficits noted SENSORIUM/ORIENTATION: Yes alert Skin: COMMON NORMALS: no rashes or lesions noted GENERAL SKIN EXAM: no rashes or lesions noted Course Vital Signs: Vital signs: Vital Signs Temperature 97.5 F L 03/31/24 14:01 Pulse Rate 88 03/31/24 14:01 Blood Pressure 154/82 03/31/24 14:01 Pulse Oximetry 99 03/31/24 14:01 Oxygen Delivery Me thod Room Air 03/31/24 14:01 MDM - Extremity (Nontraumatic) Medical Decision Making XR unremarkable. No concern for emergent etiology. She is requesting a referral to podiatry so this will be placed with case management. Declines crutches. Agreeable to AGUSTIN wrap. Continue NSAIDS, ice, elevation. Lab Data Radiology Impressions Foot X-Ray 03/31/24 14:13 IMPRESSION: No acute findings. All radiology interpretation(s) finalized by discharge Discharge Plan Discharge Patient Disposition: Home Clinical Impression: Acute pain of right foot Condition: Stable Prescriptions: No Action Mirena 20 mcg/24 hours (6 yrs) 52 mg intrauterine device 1 device intrauterine .every 5 years Qty: 1 0RF topiramate [Topamax] 50 mg tablet 50 mg PO BID famotidine 40 mg tablet 40 mg PO DAILY Qty: 7 0RF tramadol 50 mg tablet 50 mg PO Q8H PRN (Reason: pain) Qty: 20 0RF Miralax 17 gram/dose powder 17 g PO DAILY Qty: 510 0RF Rx Instructions: Take 1-2 scoops daily for the next 3 months to keep stools soft bupropion HCl 150 mg tablet sustained-release 12 hr 150 mg PO BID acetaminophen 325 mg Tablet 650 mg PO QID PRN (Reason: Pain) phentermine 37.5 mg capsule 37.5 mg PO DAILY hydrocodone-acetaminophen 5-325 mg tablet 1 tab PO Q6H PRN (Reason: pain) Qty: 14 0RF ondansetron 4 mg tablet,disintegrating 4 mg PO Q8H PRN (Reason: nausea and vomiting) Qty: 14 0RF Discharge Orders: Discharge ED (Routine); Ordered 03/31/24 Ordered By: Юлия Whitney Referrals: Mandy Mcdermott FNP [Primary Care Provider] - Activity Restrictions/Additional Instructions: As we discussed, you may use the Agustin wrap to help with compression. Continue supportive orthotic shoe wear. May ice and elevate the extremity is much as possible. Will have case management help set you up with an appointment for with podiatry for further evaluation. Coding Level of Care Code ED Resource Specialist Teacher for Uriah Singletary
[2024-03-31 15:42] VITALS: BP 120/84; PULSE 79; O2SAT 98
--- NOTE | 2024-04-01 11:44 | DCPLANNER ---
messaged sent to podiatry for er f/u
== END 2024-03-31 15:43 | disposition home or self-care (01) ==
PROVIDERS: Emergency Provider Physician Assistant; PCP Registered Nurse
DX: M79.671 Pain in right foot (principal); F17.210 Nicotine dependence, cigarettes, uncomplicated; I10 Essential (primary) hypertension
CPT/HCPCS: 73630; 99283

== ENCOUNTER 2024-04-08 14:02 | Emergency (ER) | payer BC, MEDICAID, SELFPAY ==
[2024-04-08 14:07] VITALS: BP 144/95; PULSE 89; RESP 16; TEMP 36.6; O2SAT 100
--- NOTE | 2024-04-08 16:36 | W.ED.WOUNDLC ---
HPI - Wound/Laceration General: Chief Complaint: Wound/Laceration Stated Complaint: Right leg wound Time Seen by Provider: 04/08/24 14:55 Source: patient Mode of arrival: ambulatory Limitations: no limitations History of Present Illness: 28-year-old female states that she noticed an abscess to her right inner thigh roughly 5 days ago states been painful since some slight erythema denies any drainage from it denies any worsening proving factors. She rates her pain a 4 out of 10 is much worse with palpation Associated symptoms: Denies chills, fever(s), nausea or vomiting Related Data Home Medications Medication Instructions Recorded Confirmed topiramate 50 mg tablet (Topamax) 50 mg PO BID 11/28/20 08/30/23 acetaminophen 325 mg tablet 650 mg PO QID PRN Pain 08/23/23 08/30/23 bupropion HCl 150 mg tablet,12 hr 150 mg PO BID 08/23/23 08/30/23 sustained-release phentermine 37.5 mg capsule 37.5 mg PO DAILY 08/23/23 08/30/23 Previous Rx's Medication Instructions Recorded levonorgestrel 21 mcg/24 hr (up to 1 device intrauterine .every 5 06/29/20 8 years) 52 mg intrauterine device years #1 ea (Mirena) hydrocodone 5 mg-acetaminophen 325 1 tab PO Q6H PRN pain #14 tabs 08/23/23 mg tablet ondansetron 4 mg disintegrating 4 mg PO Q8H PRN nausea and 08/23/23 tablet vomiting #14 tabs famotidine 40 mg tablet 40 mg PO DAILY #7 tabs 12/12/23 polyethylene glycol 3350 17 17 g PO DAILY #510 grams 12/12/23 gram/dose oral powder (Miralax) tramadol 50 mg tablet 50 mg PO Q8H PRN pain #20 tabs 12/12/23 sulfamethoxazole 800 1 tab PO BID 10 days #20 tabs 04/08/24 mg-trimethoprim 160 mg tablet (Bactrim DS) Allergies Allergy/AdvReac Type Severity Reaction Status Date / Time adhesive Allergy ALGY-Rash Verified 04/08/24 14:12 guaifenesin [From Mucinex] Allergy ALGY-Hives Verified 04/08/24 14:12 Review of Systems Const: Denies: fever(s), chills, body aches or change in appetite ENMT: Denies: throat pain or dental pain Card: Denies: chest pain Resp: Denies: dyspnea GI: Denies: abdominal pain, nausea, vomiting or diarrhea Musc: Denies: neck pain or back pain Skin/Breast: Denies: rash Neuro: Denies: headache(s) PFS ED PFSH: Medical History No pertinent past medical history Denies history of: Denies diabetes, asthma, seizures,bleeding or clotting disorders, DVT/PE, genital herpes PCP: THERESE Gonzalez History of hypertension She states that she has had high blood pressure that developed after the of her last child. Review of records shows 1 elevated blood pressure when patient came in for evaluation of depression however all other blood pressures were within normal limits. States she was on medication for one month after delivery but nothing since then. She denies following up with after delivery. in 2018 she did not have issues with HTN. PCOS (polycystic ovarian syndrome) Gives history of PCOS-does not remember details. Now has been having irregular cycles. Surgical History History of laparoscopy 02/19/2015--performed by Dr. Gonzalez De La Torre at [facility] for a cyst in her ovary History of tonsillectomy (~2008) 2008 History of 01/23/2016---primary low transverse section. Performed by Dr. Almonte at [facility] in [place], [place]. Delivery for arrest of dilation at 8 cm and arrest of descent at -1 station. Family History Mother Hypertension Cervical cancer, Onset Age: 30 questionable if cancer; most likely precancer Father Hypertension Grandmother Hypertension Paternal Maternal Stroke Paternal grandmother Breast cancer, Onset Age: 50 Paternal grandmother Grandfather Hypertension Paternal Maternal Brother Stroke Family/Other Uterine cancer Maternal Aunt Denies family history of Colon cancer Ovarian cancer Diabetes Heart disease Hyperlipidemia Family history of thyroid problem Social History Smoking and tobacco/nicotine status: current every day tobacco/nicotine user cigarettes [ Other cigarette details: 4-6 cigarettes/day] Alcohol intake: unknown Substance/Drug Use: never Additional social history: - Female Reproductive History: Date of last menstrual period: 02/27/24 Physical Exam Const: COMMON NORMALS: no acute distress, patient oriented x3 and healthy appearing HENMT: COMMON NORMALS: normocephalic and atraumatic HEAD & SCALP: normocephalic and atraumatic Neck/C-Spine: COMMON NORMALS: full ROM and supple Chest: COMMONS NORMALS: normal inspection of the chest Resp: COMMON NORMALS: normal respiratory effort Cardio: COMMON NORMALS: regular rate, regular rhythm and No murmurs present (Cardio) RATE: regular rate RHYTHM: regular rhythm Extremity: COMMON NORMALS: full ROM NARRATIVE EXTREMITY EXAM: 1 cm abscess to right inner leg Neuro: COMMON NORMALS: patient oriented x3, moves all extremities and no focal motor deficits Psych: COMMON NORMALS: mental status grossly normal, Normal thought process present and cooperative THOUGHT PROCESS: Normal thought process present Skin: COMMON NORMALS: no rashes or lesions noted GENERAL SKIN EXAM: no rashes or lesions noted Procedures Abscess I/D Site: lower extremity Side (if applicable): right Local Anesthetic: lidocaine 1% Amount of anesthesia used (mL): 4 Technique: incised with #11 blade Irrigation: No Packing used?: none Course Vital Signs: Vital signs: Vital Signs Temperature 97.8 F 04/08/24 14:07 Pulse Rate 89 04/08/24 14:07 Respiratory Rate 16 04/08/24 14:07 Blood Pressure 144/95 04/08/24 14:07 Pulse Oximetry 100 04/08/24 14:07 Oxygen Delivery Me thod Room Air 04/08/24 14:07 MDM - Wound/Laceration Medical Decision Making Patient presents here with an abscess to right inner thigh was incised and drained we will place her on Bactrim she is to do soaks and warm compresses follow-up with PCP return if worsening Medical Records I reviewed the patient's medical records. All radiology interpretation(s) finalized by discharge Discharge Plan Discharge Patient Disposition: Home Clinical Impression: Abscess Condition: Stable Prescriptions: New sulfamethoxazole-trimethoprim [Bactrim DS] 800-160 mg tablet 1 tab PO BID 10 Days Qty: 20 0RF No Action Mirena 20 mcg/24 hours (6 yrs) 52 mg intrauterine device 1 device intrauterine .every 5 years Qty: 1 0RF topiramate [Topamax] 50 mg tablet 50 mg PO BID famotidine 40 mg tablet 40 mg PO DAILY Qty: 7 0RF tramadol 50 mg tablet 50 mg PO Q8H PRN (Reason: pain) Qty: 20 0RF Miralax 17 gram/dose powder 17 g PO DAILY Qty: 510 0RF Rx Instructions: Take 1-2 scoops daily for the next 3 months to keep stools soft bupropion HCl 150 mg tablet sustained-release 12 hr 150 mg PO BID acetaminophen 325 mg Tablet 650 mg PO QID PRN (Reason: Pain) phentermine 37.5 mg capsule 37.5 mg PO DAILY hydrocodone-acetaminophen 5-325 mg tablet 1 tab PO Q6H PRN (Reason: pain) Qty: 14 0RF ondansetron 4 mg tablet,disintegrating 4 mg PO Q8H PRN (Reason: nausea and vomiting) Qty: 14 0RF Discharge Orders: Discharge ED (Routine); Ordered 04/08/24 Ordered By: Gail Hammond Referrals: Mandy Mcdermott FNP [Primary Care Provider] - 4-7 days Discharge Diet: Advance as tolerated Discharge Activity: Resume usual activity Patient Instructions: Abscess (ED) Coding Level of Care Code ED Respiratory Care Instructor for Uriah Singletary
[2024-04-08] MEDS: sulfamethoxazole-trimeth DS 160-800 mg Tablet 1 TAB PO (16:52)
[2024-04-08 17:26] VITALS: BP 146/91; PULSE 75; RESP 16; O2SAT 100
== END 2024-04-08 17:25 | disposition home or self-care (01) ==
PROVIDERS: Emergency Provider Emergency Medicine; PCP Registered Nurse
DX: L02.415 Cutaneous abscess of right lower limb (principal); F17.210 Nicotine dependence, cigarettes, uncomplicated; I10 Essential (primary) hypertension
CPT/HCPCS: 10060; 99283

== ENCOUNTER 2024-04-27 20:00 | Emergency (ER) | payer BC, MEDICAID, SELFPAY ==
--- NOTE | 2024-04-27 20:10 | XRR_ITS ---
PROCEDURE INFORMATION: Exam: XR Left Knee Exam date and time: 04/27/2024 8:51 PM Age: 28 years old Clinical indication: Injury or trauma; Other: Twisted lt knee; Additional info: Pain TECHNIQUE: Imaging protocol: Radiologic exam of the left knee. Views: 3 views. COMPARISON: CR XR ankle LT min 3V* [id number] 07/21/2021 9:47 AM FINDINGS: Bones/joints: Normal. Soft tissues: Normal. XR/XR knee LT 3V* [id number] IMPRESSION: No acute findings.
[2024-04-27 20:32] VITALS: BP 142/86; PULSE 96; RESP 16; TEMP 36.4; O2SAT 100
[2024-04-27 20:57] VITALS: BP 103/70; PULSE 87; RESP 18; O2SAT 98
--- NOTE | 2024-04-27 21:12 | W.ED.EXTPRO ---
HPI - Extremity Problem General: Chief complaint: Extremity Injury, Lower Stated complaint: left knee injury Time Seen by Provider: 04/27/24 20:35 History of Present Illness: Patient presents to the ER with left knee pain. She said she was out hiking when she slipped and hyperflexed her knee. Patient cannot get comfortable cannot extend her knee, she says it feels like it is locked up. Patient rates pain a 7 out of 10, she already took ibuprofen, Epsom salt bath, and smoked weed to help with the pain but is only gotten worse. Patient states he is unable to bear weight on the leg and the left knee is swollen. Patient had no pain in the knee before she fell. Related Data Home Medications Medication Instructions Recorded Confirmed topiramate 50 mg tablet (Topamax) 50 mg PO BID 11/28/20 08/30/23 acetaminophen 325 mg tablet 650 mg PO QID PRN Pain 08/23/23 08/30/23 bupropion HCl 150 mg tablet,12 hr 150 mg PO BID 08/23/23 08/30/23 sustained-release phentermine 37.5 mg capsule 37.5 mg PO DAILY 08/23/23 08/30/23 Previous Rx's Medication Instructions Recorded levonorgestrel 21 mcg/24 hr (up to 1 device intrauterine .every 5 06/29/20 8 years) 52 mg intrauterine device years #1 ea (Mirena) hydrocodone 5 mg-acetaminophen 325 1 tab PO Q6H PRN pain #14 tabs 08/23/23 mg tablet ondansetron 4 mg disintegrating 4 mg PO Q8H PRN nausea and 08/23/23 tablet vomiting #14 tabs famotidine 40 mg tablet 40 mg PO DAILY #7 tabs 12/12/23 polyethylene glycol 3350 17 17 g PO DAILY #510 grams 12/12/23 gram/dose oral powder (Miralax) tramadol 50 mg tablet 50 mg PO Q8H PRN pain #20 tabs 12/12/23 hydrocodone 5 mg-acetaminophen 325 1 tab PO Q6H PRN pain #14 tabs 04/27/24 mg tablet Allergies Allergy/AdvReac Type Severity Reaction Status Date / Time adhesive Allergy ALGY-Rash Verified 04/27/24 20:36 guaifenesin [From Mucinex] Allergy ALGY-Hives Verified 04/27/24 20:36 Review of Systems General: Reports: 10 or more systems reviewed and unremarkable except in HPI and below PFSH ED PFSH: Medical History (Updated 04/27/24 @ 22:45 by Chandra Carrillo DO) No pertinent past medical history Denies history of: Denies diabetes, asthma, seizures,bleeding or clotting disorders, DVT/PE, genital herpes PCP: THERESE Gonzalez History of hypertension She states that she has had high blood pressure that developed after the of her last child. Review of records shows 1 elevated blood pressure when patient came in for evaluation of depression however all other blood pressures were within normal limits. States she was on medication for one month after delivery but nothing since then. She denies following up with after delivery. in 2018 she did not have issues with HTN. PCOS (polycystic ovarian syndrome) Gives history of PCOS-does not remember details. Now has been having irregular cycles. Surgical History History of laparoscopy 02/19/2015--performed by Dr. Gonzalez De La Torre at [facility] for a cyst in her ovary History of tonsillectomy (~2008) 2008 History of 01/23/2016---primary low transverse section. Performed by Dr. Almonte at [facility] in [place], [place]. Delivery for arrest of dilation at 8 cm and arrest of descent at -1 station. Family History Mother Hypertension Cervical cancer, Onset Age: 30 questionable if cancer; most likely precancer Father Hypertension Grandmother Hypertension Paternal Maternal Stroke Paternal grandmother Breast cancer, Onset Age: 50 Paternal grandmother Grandfather Hypertension Paternal Maternal Brother Stroke Family/Other Uterine cancer Maternal Aunt Denies family history of Colon cancer Ovarian cancer Diabetes Heart disease Hyperlipidemia Family history of thyroid problem Social History Smoking and tobacco/nicotine status: current every day tobacco/nicotine user cigarettes [ Other cigarette details: 4-6 cigarettes/day] Alcohol intake: unknown Substance/Drug Use: never Additional social history: - Female Reproductive History: Date of last menstrual period: 04/15/24 Physical Exam Const: COMMON NORMALS: no acute distress, average body habitus, patient oriented x3, no limitations, healthy appearing, alert and well nourished HENMT: COMMON NORMALS: normocephalic, atraumatic, hearing grossly normal bilaterally, external ears normal, Normal external nose present and moist oral mucous membranes HEAD & SCALP: normocephalic and atraumatic NOSE: Normal external nose present EXTERNAL EAR: Yes external ears normal Neck/C-Spine: COMMON NORMALS: no JVD Chest: COMMONS NORMALS: normal inspection of the chest and normal palpation of entire chest wall Resp: COMMON NORMALS: normal respiratory effort, No retractions, No use of accessory muscles and clear to auscultation bilaterally AUSCULTATION: clear to auscultation bilaterally Cardio: COMMON NORMALS: no JVD, regular rate, regular rhythm, S1 normal heart sound present, S2 normal heart sound present, No gallops present (Cardio), No murmurs present (Cardio) and No rub (Cardio) RATE: regular rate RHYTHM: regular rhythm HEART SOUNDS: S1 normal heart sound present and S2 normal heart sound present GI: COMMON NORMALS: Normal to inspection, nondistended, normoactive bowel sounds present, Soft to palpation, non-tender, No hepatosplenomegaly present and no masses PALPATION: Yes Soft to palpation and Yes No hepatosplenomegaly present Extremity: NARRATIVE EXTREMITY EXAM: Left knee swollen tender to touch, decreased range of motion secondary to pain. No obvious crepitus or deformity Neuro: COMMON NORMALS: patient oriented x3 SENSORIUM/ORIENTATION: Yes alert Course Vital Signs: Vital signs: Vital Signs Temperature 97.6 F 04/27/24 20:32 Pulse Rate 87 04/27/24 20:57 Respiratory Rate 18 04/27/24 20:57 Blood Pressure 103/70 04/27/24 20:57 Pulse Oximetry 98 04/27/24 20:57 Oxygen Delivery Me thod Room Air 04/27/24 20:32 MDM - Extremity (Nontraumatic) Medical Decision Making X-rays were preliminary read by myself is negative, patient was put in the immobilizer and crutches, patient was given 60 mg Toradol IM and 1 Manderson 5 while here. Patient be sent home with a small prescription for Manderson and instructed to follow-up with her PCP in approximately 7 days. Lab Data I reviewed the patient's lab results. All radiology interpretation(s) finalized by discharge Discharge Plan Discharge Patient Disposition: Home Clinical Impression: Acute knee pain, Fall Condition: Stable Prescriptions: New hydrocodone-acetaminophen 5-325 mg tablet 1 tab PO Q6H PRN (Reason: pain) Qty: 14 0RF No Action Mirena 20 mcg/24 hours (6 yrs) 52 mg intrauterine device 1 device intrauterine .every 5 years Qty: 1 0RF topiramate [Topamax] 50 mg tablet 50 mg PO BID famotidine 40 mg tablet 40 mg PO DAILY Qty: 7 0RF tramadol 50 mg tablet 50 mg PO Q8H PRN (Reason: pain) Qty: 20 0RF Miralax 17 gram/dose powder 17 g PO DAILY Qty: 510 0RF Rx Instructions: Take 1-2 scoops daily for the next 3 months to keep stools soft bupropion HCl 150 mg tablet sustained-release 12 hr 150 mg PO BID acetaminophen 325 mg Tablet 650 mg PO QID PRN (Reason: Pain) phentermine 37.5 mg capsule 37.5 mg PO DAILY hydrocodone-acetaminophen 5-325 mg tablet 1 tab PO Q6H PRN (Reason: pain) Qty: 14 0RF ondansetron 4 mg tablet,disintegrating 4 mg PO Q8H PRN (Reason: nausea and vomiting) Qty: 14 0RF Discharge Orders: Discharge ED (Routine); Ordered 04/27/24 Ordered By: Chandra Carrillo Referrals: Mandy Mcdermott FNP [Primary Care Provider] - 1 week Patient Instructions: Opioid Safety, Pain Management Activity Restrictions/Additional Instructions: Your x-ray was preliminary read as negative. Once the radiologist reads it if is anything other than this we will be calling you guys treatment may change. Otherwise please keep your knee immobilizer on and use your crutches at all times until seen by your PCP within next 7 days. If your knee pain continues to be severe you may end up needing to be seen by the orthopedic surgeon and have an MRI.. Coding Level of Care Code ED Converting Technician for Uriah Singletary
[2024-04-27] MEDS: HYDROcodone-acetaminophen 5-325 mg Tablet 1 TAB PO (21:20)
[2024-04-27] MEDS: ketorolac 60 mg/2 mL INJ IM (21:20)
[2024-04-27 22:51] VITALS: BP 119/81; PULSE 86; O2SAT 97
== END 2024-04-27 22:53 | disposition home or self-care (01) ==
PROVIDERS: Emergency Provider Emergency Medicine; PCP Registered Nurse
DX: M25.562 Pain in left knee (principal); W19.XXXA Unspecified fall, initial encounter; Y93.01 Activity, walking, marching and hiking
CPT/HCPCS: 29530; 73562; 96372; 99284; E0114; J1885

== ENCOUNTER 2024-05-04 21:50 | Emergency (ER) | payer BC, MEDICAID, SELFPAY ==
[2024-05-04 21:52] VITALS: BP 154/84; PULSE 90; RESP 16; TEMP 36.7; O2SAT 97
--- NOTE | 2024-05-04 22:05 | USR_ITS ---
PROCEDURE INFORMATION: Exam: US Duplex Left Lower Extremity Veins, Limited Exam date and time: 05/04/2024 10:14 PM Age: 28 years old Clinical indication: Pain; Leg, lower; Left; Additional info: Left-sided calf pain and swelling concern for dvt TECHNIQUE: Imaging protocol: Real-time duplex ultrasound of the left extremity with 2-D or[place] scale, color Doppler flow and spectral waveform analysis including responses to compression and other maneuvers (when performed) with image documentation. Limited exam focused on the left lower extremity veins. COMPARISON: US OB limited [facility] 05/12/2020 1:38 PM FINDINGS: Left deep veins: The left common femoral, femoral, proximal profunda femoral, popliteal, peroneal and posterior tibial veins are patent without thrombus. Normal Doppler waveforms. Normal compressibility and/or augmentation response. Superficial veins: Greater saphenous vein at the saphenofemoral junction is patent without thrombus. Soft tissues: Subcutaneous edema noted in the left lower extremity. US/CV venous duplex [facility] [id number] IMPRESSION: No evidence of deep vein thrombosis in the left lower extremity.
--- NOTE | 2024-05-04 22:27 | W.ED.EXTPRO ---
HPI - Extremity Problem General: Chief complaint: Extremity Injury, Lower Stated complaint: Left Knee Pain\Numbness\Hip Pain Time Seen by Provider: 05/04/24 21:59 History of Present Illness: 28-year-old female who presents to the emergency room knee pain. She was hiking and felt a pop in her knee and since then has had pretty severe pain. She been to see her primary because pain continued and primary sent her to the emergency room with concern for DVT. She said pain is now down into her calf and goes up her leg into her hip. She has been wearing a knee immobilizer. She is neurovascularly intact. Related Data Home Medications Medication Instructions Recorded Confirmed topiramate 50 mg tablet (Topamax) 50 mg PO BID 11/28/20 08/30/23 acetaminophen 325 mg tablet 650 mg PO QID PRN Pain 08/23/23 08/30/23 bupropion HCl 150 mg tablet,12 hr 150 mg PO BID 08/23/23 08/30/23 sustained-release phentermine 37.5 mg capsule 37.5 mg PO DAILY 08/23/23 08/30/23 Previous Rx's Medication Instructions Recorded levonorgestrel 21 mcg/24 hr (up to 1 device intrauterine .every 5 06/29/20 8 years) 52 mg intrauterine device years #1 ea (Mirena) hydrocodone 5 mg-acetaminophen 325 1 tab PO Q6H PRN pain #14 tabs 08/23/23 mg tablet ondansetron 4 mg disintegrating 4 mg PO Q8H PRN nausea and 08/23/23 tablet vomiting #14 tabs famotidine 40 mg tablet 40 mg PO DAILY #7 tabs 12/12/23 polyethylene glycol 3350 17 17 g PO DAILY #510 grams 12/12/23 gram/dose oral powder (Miralax) tramadol 50 mg tablet 50 mg PO Q8H PRN pain #20 tabs 12/12/23 hydrocodone 5 mg-acetaminophen 325 1 tab PO Q6H PRN pain #14 tabs 04/27/24 mg tablet Allergies Allergy/AdvReac Type Severity Reaction Status Date / Time adhesive Allergy ALGY-Rash Verified 05/04/24 21:58 guaifenesin [From Mucinex] Allergy ALGY-Hives Verified 05/04/24 21:58 Review of Systems Narrative: Constitutional symptoms: Negative except as documented in HPI. Skin symptoms: Negative except as documented in HPI. Eye symptoms: Negative except as documented in HPI. ENMT symptoms: Negative except as documented in HPI. Respiratory symptoms: Negative except as documented in HPI. Cardiovascular symptoms: Negative except as documented in HPI. Gastrointestinal symptoms: Negative except as documented in HPI. Genitourinary symptoms: Negative except as documented in HPI. Musculoskeletal symptoms: Negative except as documented in HPI. Neurologic symptoms: Negative except as documented in HPI. Psychiatric symptoms: Negative except as documented in HPI. Endocrine symptoms: Negative except as documented in HPI. PFSH ED PFSH: Medical History (Updated 05/04/24 @ 23:26 by Wendy Sin MD) No pertinent past medical history Denies history of: Denies diabetes, asthma, seizures,bleeding or clotting disorders, DVT/PE, genital herpes PCP: THERESE Gonzalez History of hypertension She states that she has had high blood pressure that developed after the of her last child. Review of records shows 1 elevated blood pressure when patient came in for evaluation of depression however all other blood pressures were within normal limits. States she was on medication for one month after delivery but nothing since then. She denies following up with after delivery. in 2018 she did not have issues with HTN. PCOS (polycystic ovarian syndrome) Gives history of PCOS-does not remember details. Now has been having irregular cycles. Surgical History History of laparoscopy 02/19/2015--performed by Dr. Gonzalez De La Torre at [facility] for a cyst in her ovary History of tonsillectomy (~2008) 2008 History of 01/23/2016---primary low transverse section. Performed by Dr. Almonte at [facility] in [place], [place]. Delivery for arrest of dilation at 8 cm and arrest of descent at -1 station. Family History Mother Hypertension Cervical cancer, Onset Age: 30 questionable if cancer; most likely precancer Father Hypertension Grandmother Hypertension Paternal Maternal Stroke Paternal grandmother Breast cancer, Onset Age: 50 Paternal grandmother Grandfather Hypertension Paternal Maternal Brother Stroke Family/Other Uterine cancer Maternal Aunt Denies family history of Colon cancer Ovarian cancer Diabetes Heart disease Hyperlipidemia Family history of thyroid problem Social History Smoking and tobacco/nicotine status: current every day tobacco/nicotine user cigarettes [ Other cigarette details: 4-6 cigarettes/day] Alcohol intake: unknown Substance/Drug Use: never Additional social history: - Physical Exam Narrative: EXAM NARRATIVE: General: Alert, no acute distress. Skin: warm and dry Head: Normocephalic Neck: Trachea midline Eye: Extraocular movements are intact. Ears, nose, mouth and throat: Oral mucosa moist Respiratory: Respirations are non-labored Musculoskeletal: Range of motion limited by pain. No obvious swelling or deformities. No warmth or redness. Neurological: Alert and oriented, No focal neurological deficit observed. Psychiatric: Cooperative, appropriate mood & affect. Course Vital Signs: Vital signs: Vital Signs Temperature 98.0 F 05/04/24 21:52 Pulse Rate 90 05/04/24 21:52 Respiratory Rate 16 05/04/24 21:52 Blood Pressure 154/84 05/04/24 21:52 Pulse Oximetry 97 05/04/24 21:52 Oxygen Delivery Me thod Room Air 05/04/24 21:52 MDM - Extremity (Nontraumatic) Medical Decision Making Ultrasound of the left lower extremity shows no DVT. This was reviewed and interpreted by myself the emergency room physician. I also reviewed the radiology report. Assessment and plan: Knee injury. ?I offered to pain control and steroids she declines at this time. We did discuss follow-up with orthopedics would be the next step. - Discharged home - Discussed plan with patient. Answered any questions. - Evaluation and treatment of this problem were appropriate in the emergency setting. All radiology interpretation(s) finalized by discharge Discharge Plan Discharge Patient Disposition: Home Clinical Impression: Acute knee pain Qualifiers: Laterality: left Qualified Code(s): M25.562 - Pain in left knee Condition: Stable Prescriptions: No Action Mirena 20 mcg/24 hours (6 yrs) 52 mg intrauterine device 1 device intrauterine .every 5 years Qty: 1 0RF topiramate [Topamax] 50 mg tablet 50 mg PO BID famotidine 40 mg tablet 40 mg PO DAILY Qty: 7 0RF tramadol 50 mg tablet 50 mg PO Q8H PRN (Reason: pain) Qty: 20 0RF Miralax 17 gram/dose powder 17 g PO DAILY Qty: 510 0RF Rx Instructions: Take 1-2 scoops daily for the next 3 months to keep stools soft bupropion HCl 150 mg tablet sustained-release 12 hr 150 mg PO BID acetaminophen 325 mg Tablet 650 mg PO QID PRN (Reason: Pain) phentermine 37.5 mg capsule 37.5 mg PO DAILY hydrocodone-acetaminophen 5-325 mg tablet 1 tab PO Q6H PRN (Reason: pain) Qty: 14 0RF ondansetron 4 mg tablet,disintegrating 4 mg PO Q8H PRN (Reason: nausea and vomiting) Qty: 14 0RF hydrocodone-acetaminophen 5-325 mg tablet 1 tab PO Q6H PRN (Reason: pain) Qty: 14 0RF Discharge Orders: Discharge ED (Routine); Ordered 05/04/24 Ordered By: Wendy Sin Referrals: Chato Lomas DO [Physician] - 1-3 days (Please call for follow-up appointment.) Mandy Mcdermott FNP [Primary Care Provider] - Discharge Diet: Usual diet Discharge Activity: Increase activity as tolerated Patient Instructions: Pain Management Activity Restrictions/Additional Instructions: Thank you for choosing [facility] for your healthcare needs today. Please realize this is an emergency room and that we are providing you with a medical screening exam and this may not be complete and all inclusive of all the testing and or work up that you may need to determine your ailment or severity of your illness. You have been screened and evaluated and felt safe for discharge. Health conditions do change or evolve sometimes and as such it is important that you follow up with your Primary Doctor to be re checked, 3-5 days is a general good time frame for follow up. You are always welcome to return to the ED for re assessment if your symptoms are worsening or you have new concerns Coding Level of Care Code ED Ladle Puller for Uriah Singletary
[2024-05-04 23:37] VITALS: PULSE 86; RESP 16; O2SAT 98
--- NOTE | 2024-05-05 07:20 | DCPLANNER ---
Message sent to Ortho for a referral of left knee pain-
== END 2024-05-04 23:38 | disposition home or self-care (01) ==
PROVIDERS: Emergency Provider Emergency Medicine; PCP Registered Nurse
DX: S89.92XA Unspecified injury of left lower leg, initial encounter (principal); X58.XXXA Exposure to other specified factors, initial encounter; Y93.01 Activity, walking, marching and hiking
CPT/HCPCS: 93971; 99284

== ENCOUNTER → 2024-05-12 13:53 | Outpatient (BNVA) | payer BC, MEDICAID, SELFPAY | PROVIDERS: PCP Registered Nurse; Visit Provider Orthopaedic Surgery | DX: M25.562 Pain in left knee (principal) | CPT/HCPCS: 73560; 73565 ==

== ENCOUNTER 2024-05-27 07:32 | Outpatient (CLI) | payer BC, MEDICAID, SELFPAY ==
--- NOTE | 2024-05-27 08:00 | MR_ITS ---
WS: [id number] MRI LEFT KNEE HISTORY: left knee pain COMPARISON: Radiograph 05/12/2024 Anterior cruciate ligament: Abnormal ACL. The central portion of the ACL fibers are incomplete. Suspe ct high-grade tear centrally. The more proximal and distal ACL fibers are thickened and heterogeneous . Posterior cruciate ligament: Intact. Medial collateral ligament: Intact. Posterior lateral corner structures: Intact. Medial menisci: Intact. Normal signal, size and shape. Lateral meniscus: Intact. Normal signal, size and shape. Extensor mechanism: Distal quadriceps tendon and patellar tendons are intact. Fluid and soft tissue: Small suprapatellar joint effusion. No Vazquez's cyst. Osseous and articular structures: Patellofemoral compartment: Very slight lateral subluxation of the patella. No marrow edema. Cartilag e is well-preserved. Medial compartment: Normal. No marrow edema. Lateral compartment: Normal. No marrow edema. There is a low signal 7 x 5 mm focus in the anterior joint space, just deep to the infrapatellar fat pad. This may be a loose body although the donor site is not evident. This also may be part of the to rn ACL which is displaced anteriorly. MR/MR knee LT wo con* [id number] IMPRESSION: 1. Abnormal ACL. Central tear in the ACL. 2. No meniscal tear. 3. 7 x 5 mm low signal focus in the anterior joint space, just posterior to th e infrapatellar fat pad. No donor site is evident. This may be part of the disp laced ACL tear. 4. No fracture or marrow edema.
== END 2024-05-27 07:33 | disposition home or self-care (01) ==
PROVIDERS: PCP Registered Nurse; Visit Provider Orthopaedic Surgery
DX: S83.512A Sprain of anterior cruciate ligament of left knee, initial encounter (principal); X58.XXXA Exposure to other specified factors, initial encounter
CPT/HCPCS: 73721

== ENCOUNTER 2024-12-12 18:32 | Emergency (ER) | payer BC, MEDICAID, SELFPAY ==
[2024-12-12 18:40] VITALS: BP 155/91; PULSE 76; RESP 16; TEMP 36.6; O2SAT 99; BMI 52.8
[2024-12-12 19:20] VITALS: BP 142/87; PULSE 76; RESP 16; O2SAT 97
[2024-12-12 19:22] LABS: Bilirubin Urine Negative (Negative); Blood Urine Negative (Negative); Glucose Urine UA Negative (Normal); Ketones Urine Negative (Negative); Leukocyte Esterase Urine Negative (Negative); Nitrate Urine Negative (Negative); Protein Urine Negative (Negative); Specific Gravity, Urine 1.014 (1.005-1.030); Urine Appearance Clear (CLEAR); Urine Color Yellow (Yellow); Urobilinogen Urine 0.2 mg/dL (Negative); pH Urine 5.5 (5-7)
[2024-12-12 19:24] LABS: Bacteria Urine None Seen /hpf; RBC Urine 0-2 /hpf (0-2); Squamous Epithelial Cell Urine 0-5 /hpf (0-5); WBC Urine 0-5 /hpf (0-5)
[2024-12-12 19:32] LABS: Basophils # 0.1 10^3/uL (0.0-0.1); Basophils % 0.4 %; Eosinophils # 0.2 10^3/uL (0.0-0.8); Eosinophils % 1.2 %; Hematocrit 41.7 % (36-47); Lymphocytes % 32.9 %; Mean Corpuscular HGB Conc 33.8 g/dL (30-55); Mean Corpuscular Hemoglobin 29.4 pg (27-33); Mean Corpuscular Volume 87.1 fl (85-98); Mean Platelet Volume 10.4 fL (7.4-10.4); Monocytes # 0.8 10^3/uL (0.2-0.9); Monocytes % 6.6 %; Neutrophils # 7.13 10^3/uL (1.8-7.7); Neutrophils % 58.7 %; Nucleated Red Blood Cells % 0 %; Platelet Count 267 10^3/cmm (157-399); Red Blood Count 4.79 10^6/uL (3.85-5.65); Red Cell Distribution Width 13.3 % (12.1-15.1); White Blood Count 12.16 10^3/uL (3.29-11.43)
[2024-12-12 19:49] LABS: Alanine Aminotransferase 25 U/L (0-33); Albumin Level 4.1 g/dL (3.5-5.2); Alkaline Phosphatase 89 U/L (35-105); Anion Gap 18.9 (5-19); Aspartate Amino Transferase 18 U/L (0-32); Blood Urea Nitrogen 15 mg/dL (6-20); Calcium 9.5 mg/dL (8.5-10.5); Carbon Dioxide 21 mmol/L (22-29); Chloride 101 mmol/L (98-107); Globulin 3.1 g/dL (1.3-4.6); Glomerular Filtration Rate 98.9 mL/min (90-130); Glucose 82 mg/dL (65-115); Lipase 30 U/L (13-60); Osmolality Calculated 284 mOsm/kg (285-295); Potassium 3.9 mmol/L (3.5-5.1); Sodium 137 mmol/L (136-145); Total Bilirubin 0.3 mg/dL (0.15-1.2); Total Protein 7.2 g/dL (6.6-8.7)
--- NOTE | 2024-12-12 19:59 | CTR_ITS ---
PROCEDURE INFORMATION: Exam: CT Abdomen And Pelvis With Contrast Exam date and time: 12/12/2024 8:43 PM Age: 29 years old Clinical indication: Abdominal pain; Other: Bilat flank/lower abd; Prior surgery; Surgery date: 6+ months; Surgery type: Csection. Iud; C/O bilateral flank and lower abd pain with nausea; Additional info: Lower abd pain, bilateral lower back pain, HX of pcos TECHNIQUE: Imaging protocol: Computed tomography of the abdomen and pelvis with contrast. Radiation optimization: All CT scans at this facility use at least one of these dose optimization techniques: automated exposure control; mA and/or kV adjustment per patient size (includes targeted exams where dose is matched to clinical indication); or iterative reconstruction. Contrast material: OMNI 350; Contrast volume: 100 ml; Contrast route: INTRAVENOUS (IV); COMPARISON: CT abdomen pelvis w con* [id number] 12/12/2023 1:33 AM RADIATION DOSE METRICS: Total DLP (mGy-cm): 1290.59 FINDINGS: Liver: Unremarkable. No mass. Gallbladder and biliary ducts: The gallbladder has been surgically removed. Surgical clips identified in the gallbladder fossa. No evidence for biliary dilatation. Pancreas: Unremarkable. Spleen: Unremarkable. No splenomegaly. Adrenal glands: Normal. No mass. Kidneys and ureters: Unremarkable. No hydronephrosis or calculi. Stomach and bowel: Unremarkable. No obstruction, ileus or definite inflammation. Appendix: The visualized appendix appears unremarkable. Intraperitoneal space: No free air. No significant fluid collection. Vasculature: Unremarkable. No abdominal aortic aneurysm. Lymph nodes: No enlarged lymph nodes. Urinary bladder: Unremarkable as visualized. Reproductive: Intrauterine device identified within the uterus. Bones/joints: Bilateral L5 spondylolysis is demonstrated. Moderate to severe bony degenerative changes involving the lower lumbar spine and lumbar sacral junction. Disc and osteophyte complexes with moderate to severe central canal and foraminal narrowing within the lower lumbar spine and lumbar sacral junction. Soft tissues: Fat containing periumbilical ventral wall hernia is demonstrated. Other findings: This study is severely limited by patient's large body habitus. Limited study with motion artifact. CT/CT abdomen pelvis w con* [id number] IMPRESSION: 1. No acute findings. 2. Degenerative and postsurgical changes are demonstrated, as described above.
--- NOTE | 2024-12-12 20:09 | W.ED.ABDPA2 ---
HPI - Abdominal Pain General: Chief Complaint: Abdominal Pain Stated Complaint: Pain on Ovaries Time Seen by Provider: 12/12/24 19:45 History of Present Illness: Patient with a history of PCOS and endometriosis presents with severe lower abdominal and new-onset lower back pain, accompanied by random spotting and episodes of gushing vaginal bleeding. She reports her last menstrual period was two weeks ago and waitangi tribunal member than usual, with typical cramping. The current pain is described as very bad, different from her usual pain, and now radiates to both sides of her lower back near the hips, sparing the midline. She notes feeling lightheaded and nearly passed out at work, with coworkers observing pallor and disorientation. The pain worsens with movement, reaching 8/10 at its worst and currently at 6/10. She has a high pain tolerance and delayed seeking care due to work and prior experiences. She has an IUD in place and a history of a broken ACL, which she initially thought might be contributing to her symptoms. She denies prior similar episodes of back pain. She is able to drive herself and can arrange a ride if needed. No mention of fever, GI, or urinary symptoms. Related Data Home Medications ?Medication ?Instructions ?Recorded ?Confirmed acetaminophen 325 mg tablet 650 mg PO QID PRN Pain 08/23/23 06/18/24 buspirone 5 mg tablet 5 mg PO TID 05/12/24 06/18/24 Previous Rx's ?Medication ?Instructions ?Recorded levonorgestrel (Mirena) 1 device intrauterine .every 5 06/29/20 years #1 ea hydrocodone 5 mg-acetaminophen 325 1 tab PO Q6H PRN pain #14 tabs 08/23/23 mg tablet famotidine 40 mg tablet 40 mg PO DAILY #7 tabs 12/12/23 Allergies Allergy/AdvReac Type Severity Reaction Status Date / Time adhesive Allergy ALGY-Rash Verified 05/12/24 14:05 guaifenesin (From Mucinex) Allergy ALGY-Hives Verified 05/12/24 14:05 [facility] ED [facility]: Medical History (Updated 12/12/24 @ 21:29 by Lavell Reddy MD) No pertinent past medical history Denies history of: Denies diabetes, asthma, seizures,bleeding or clotting disorders, DVT/PE, genital herpes PCP: THERESE Gonzalez History of hypertension She states that she has had high blood pressure that developed after the of her last child. Review of records shows 1 elevated blood pressure when patient came in for evaluation of depression however all other blood pressures were within normal limits. States she was on medication for one month after delivery but nothing since then. She denies following up with after delivery. in 2018 she did not have issues with HTN. PCOS (polycystic ovarian syndrome) Gives history of PCOS-does not remember details. Now has been having irregular cycles. Surgical History History of laparoscopy 02/19/2015--performed by Dr. Gonzalez De La Torre at [facility] for a cyst in her ovary History of tonsillectomy (~2008) 2008 History of 01/23/2016---primary low transverse section. Performed by Dr. Almonte at [facility] in [place], [place]. Delivery for arrest of dilation at 8 cm and arrest of descent at -1 station. Family History Mother Hypertension Cervical cancer, Onset Age: 30 questionable if cancer; most likely precancer Father Hypertension Grandmother Hypertension Paternal Maternal Stroke Paternal grandmother Breast cancer, Onset Age: 50 Paternal grandmother Grandfather Hypertension Paternal Maternal Brother Stroke Family/Other Uterine cancer Maternal Aunt Denies family history of Colon cancer Ovarian cancer Diabetes Heart disease Hyperlipidemia Family history of thyroid problem Social History Smoking and tobacco/nicotine status: current every day tobacco/nicotine user cigarettes [ Other cigarette details: 4-6 cigarettes/day] Alcohol intake: unknown Substance/Drug Use: never Additional social history: - Physical Exam Const: COMMON NORMALS: no acute distress, patient oriented x3 and alert HENMT: COMMON NORMALS: normocephalic and atraumatic HEAD & SCALP: normocephalic and atraumatic Eye: COMMON NORMALS: Equal, round and reactive pupils present, EOMs intact bilaterally and no scleral icterus PUPIL: Yes Equal, round and reactive pupils present Resp: COMMON NORMALS: normal respiratory effort and No retractions Cardio: COMMON NORMALS: regular rate, regular rhythm and No murmurs present (Cardio) RATE: regular rate RHYTHM: regular rhythm GI: OTHER: Moderate suprapubic tenderness to palpation. Mild to moderate tenderness with palpation of the bilateral flank regions. Normal bowel sounds. No peritoneal signs. No pain with palpation of McBurney's point and negative Sanders sign. : OTHER: exam deferred. Neuro: COMMON NORMALS: patient oriented x3 SENSORIUM/ORIENTATION: Yes alert Skin: COMMON NORMALS: no rashes or lesions noted GENERAL SKIN EXAM: no rashes or lesions noted Course Vital Signs: Vital signs: Vital Signs Temperature 97.9 F 12/12/24 18:40 Pulse Rate 70 12/12/24 21:36 Respiratory Rate 16 12/12/24 21:36 Blood Pressure 142/87 12/12/24 21:36 Pulse Oximetry 99 12/12/24 21:36 Oxygen Delivery Me thod Room Air 12/12/24 20:20 MDM - Abdominal Pain Medical Decision Making Patient remained hemodynamically stable throughout ED course. Labs and CT scan are reassuring with no evidence of acute process. Pain is better with Toradol. I do not suspect any emergent process warranting further workup or hospitalization or surgical intervention. She will be discharged in stable and improved condition Lab Data 12/12/24 19:26 12/12/24 19:26 Labs/Radiology: Radiology Impressions Abdomen/Pelvis CT 12/12/24 19:59 IMPRESSION: 1. No acute findings. 2. Degenerative and postsurgical changes are demonstrated, as described above. Laboratory Results WBC 12.16 10^3/uL (3.29-11.43) H 12/12/24 19:26 RBC 4.79 10^6/uL (3.85-5.65) 12/12/24 19:26 Hgb 14.10 g/dL (11.27-16.99) 12/12/24 19:26 Hct 41.7 % (36-47) 12/12/24 19:26 MCV 87.1 fl (85-98) 12/12/24 19:26 MCH 29.4 pg (27-33) 12/12/24 19:26 MCHC 33.8 g/dL (30-55) 12/12/24 19:26 RDW 13.3 % (12.1-15.1) 12/12/24 19:26 Plt Count 267 10^3/cmm (157-399) 12/12/24 19:26 MPV 10.4 fL (7.4-10.4) 12/12/24 19:26 Neut % (Auto) 58.7 % 12/12/24 19:26 Lymph % (Auto) 32.9 % 12/12/24 19:26 [place] % (Auto) 6.6 % 12/12/24 19:26 Eos % (Auto) 1.2 % 12/12/24 19:26 Baso % (Auto) 0.4 % 12/12/24 19:26 Neut # (Auto) 7.13 10^3/uL (1.8-7.7) 12/12/24 19:26 Lymph # (Auto) 4.0 10^3/uL (0.8-4.8) 12/12/24 19:26 [place] # (Auto) 0.8 10^3/uL (0.2-0.9) 12/12/24 19:26 Eos # (Auto) 0.2 10^3/uL (0.0-0.8) 12/12/24 19:26 Baso # (Auto) 0.1 10^3/uL (0.0-0.1) 12/12/24 19:26 Nucleated RBC % (auto) 0 % 12/12/24 19:26 Nucleated RBCs # 0.0 /100WBC 12/12/24 19:26 Sodium 137 mmol/L (136-145) 12/12/24 19:26 Potassium 3.9 mmol/L (3.5-5.1) 12/12/24 19:26 Chloride 101 mmol/L (98-107) 12/12/24 19:26 Carbon Dioxide 21 mmol/L (22-29) L 12/12/24 19:26 Anion Gap 18.9 (5-19) 12/12/24 19:26 BUN 15 mg/dL (6-20) 12/12/24 19:26 Creatinine 0.7 mg/dL (0.5-0.9) 12/12/24 19:26 GFR Calculation 98.9 mL/min (90-130) 12/12/24 19:26 Glucose 82 mg/dL (65-115) 12/12/24 19:26 Calculated Osmolality 284 mOsm/kg (285-295) L 12/12/24 19:26 Calcium 9.5 mg/dL (8.5-10.5) 12/12/24 19:26 Total Bilirubin 0.3 mg/dL (0.15-1.2) 12/12/24 19:26 AST 18 U/L (0-32) 12/12/24 19:26 ALT 25 U/L (0-33) 12/12/24 19:26 Alkaline Phosphatase 89 U/L (35-105) 12/12/24 19:26 Total Protein 7.2 g/dL (6.6-8.7) 12/12/24 19:26 Albumin 4.1 g/dL (3.5-5.2) 12/12/24 19:26 Globulin 3.1 g/dL (1.3-4.6) 12/12/24 19:26 Lipase 30 U/L (13-60) 12/12/24 19:26 HCG, Qual Negative (Negative) 12/12/24 19:10 Urine Color Yellow (Yellow) 12/12/24 19:10 Urine Appearance Clear (CLEAR) 12/12/24 19:10 Urine pH 5.5 (5-7) 12/12/24 19:10 Ur Specific [place] 1.014 (1.005-1.030) 12/12/24 19:10 Urine Protein Negative (Negative) 12/12/24 19:10 Urine Glucose (UA) Negative (Normal) 12/12/24 19:10 Urine Ketones Negative (Negative) 12/12/24 19:10 Urine Blood Negative (Negative) 12/12/24 19:10 Urine Nitrate Negative (Negative) 12/12/24 19:10 Urine Bilirubin Negative (Negative) 12/12/24 19:10 Urine Urobilinogen 0.2 mg/dL (Negative) 12/12/24 19:10 Ur Leukocyte Esterase Negative (Negative) 12/12/24 19:10 Urine RBC 0-2 /hpf (0-2) 12/12/24 19:10 Urine WBC 0-5 /hpf (0-5) 12/12/24 19:10 Ur Squamous Epith Cells 0-5 /hpf (0-5) 12/12/24 19:10 Amorphous Sediment Not Reportable 12/12/24 19:10 Urine Bacteria None seen /hpf (NONE) 12/12/24 19:10 Hyaline Casts 0.40 /lpf 12/12/24 19:10 All radiology interpretation(s) finalized by discharge Discharge Plan Discharge Patient Disposition: Home Clinical Impression: Pelvic pain Condition: Stable Prescriptions: No Action Mirena 20 mcg/24 hours (6 yrs) 52 mg intrauterine device 1 device intrauterine .every 5 years Qty: 1 0RF buspirone 5 mg tablet 5 mg PO TID famotidine 40 mg tablet 40 mg PO DAILY Qty: 7 0RF acetaminophen 325 mg Tablet 650 mg PO QID PRN (Reason: Pain) hydrocodone-acetaminophen 5-325 mg tablet 1 tab PO Q6H PRN (Reason: pain) Qty: 14 0RF Discharge Orders: Discharge ED (Routine); Ordered 12/12/24 Ordered By: Lavell Reddy Referrals: Dinah Sanches DO [Primary Care Provider, CORE JAVA ENGINEER] Discharge Diet: Advance as tolerated Discharge Activity: Increase activity as tolerated Patient Instructions: Pelvic Pain (ED) Activity Restrictions/Additional Instructions: As we discussed, your CT scan and blood work are all reassuring with no evidence of infection, active bleeding, or other abnormality requiring hospitalization or surgery. Please take ibuprofen and Tylenol as needed for pain and symptoms should resolve over the next few days without need for further intervention. Print Language: Nigerian Coding Level of Care Code ED Security Management Specialist for Uriah Singletary
[2024-12-12] MEDS: ketorolac 30 mg/mL INJ 15 MG IVP (20:19)
[2024-12-12 20:20] VITALS: BP 142/87; PULSE 72; O2SAT 98
[2024-12-12 20:22] LABS: HCG Qualitative Urine. Negative (Negative)
[2024-12-12] MEDS: iohexol 350 mg/mL 500 mL Btl (per mL) IV (20:43)
[2024-12-12 21:36] VITALS: BP 142/87; PULSE 70; RESP 16; O2SAT 99
== END 2024-12-12 21:38 | disposition home or self-care (01) ==
PROVIDERS: Student in an Organized Health Care Education/Training Program; Emergency Provider Student in an Organized Health Care Education/Training Program; PCP Family Medicine
DX: R10.2 Pelvic and perineal pain (principal); F17.210 Nicotine dependence, cigarettes, uncomplicated
CPT/HCPCS: 36415; 74177; 80053; 81001; 81025; 83690; 85025; 96374; 99285; J1885

== ENCOUNTER 2025-02-06 16:35 | Emergency (ER) | payer BC, MEDICAID, SELFPAY ==
--- OUTSIDE RECORDS SUMMARY | 2003-07-07 19:00 | XMS_ITS | Continuity of Care Document ---
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
[2025-02-06] VITALS (7 sets, daily range): BP systolic 128–146; BP diastolic 82–100; PULSE 69–87; RESP 16–18; TEMP 36.7; O2SAT 94–98; BMI 49.8
--- OUTSIDE RECORDS SUMMARY | 2025-02-06 16:39 | XMS_ITS | Clinical Summary ---
Author Organization [facility] Address [address] [address] Care Team Providers Care Relief Pilot Name Role Phone Shereen Garland DO Primary Care Provider Allergies Active Allergy Reactions Criticality Noted Date Comments Adhesive Rash Low 01/11/2015 Guaifenesin Rash Low 03/19/2012 Medications acetaminophen (TYLENOL) 325 mg tablet Take 325 mg by mouth every 4 hours as needed. Active calcium as carbonate (TUMS) 500 mg (200 mg elemental) Tablet, Chewable Take by mouth. Active levonorgestreL (MIRENA) 20 mcg/24 hours (6 yrs) 52 mg IUD 06/29/2020 Acti ve topiramate (Topamax) 50 mg tabletIndication s:Bipolar affective disorder (CMS/HCC),Other migraine without status migrainosus, intractable Clarify: take 1 tab BID 60 Tablet 5 10/17/2020 Active Phentermine 37.5 mg CapsuleIndicatio ns:Morbid obesity with body mass index of 40.0-49.9 (CMS/HCC) Take 1 Capsule by mouth daily before breakfast. 30 Capsule 2 10/17/2020 Active Active Problems Problem Noted Date Diagnosed Date GERD (gastroesophageal reflux disease) 3 Ankle pain, chronic 05/31/2013 PCOS (polycystic ovarian syndrome) 05/31/2013 Bipolar affective disorder 11/09/2011 Obesity 08/31/2010 Resolved Problems Problem Noted Date Diagnosed Date Resolved Date Ankle pain, left 04/30/2012 05/31/2013 Seasonal allergic rhinitis 03/19/2012 1 07/31/2012 Immunizations Immunization Administration Dates Next Due (GARDASIL)(9-45 YRS) HUMAN P APILLOMAVIRUS VACCINE, TYPES 6, 11, 16, 18, QUADRIVALENT (4VHPV), 3 DOSE, IM 04/21/2010 (M-M-R II/PRIORIX)(12 MO UP) MEASLES, MUMPS AND RUBELLA VIRUS VACCINE, 0.5 ML IM/SUBCUT 08/04/1996 Dt Dtp Dtap Vaccine 08/04/1996,03/03/1996,1995 HIB, Unspecified Formulation 08/04/1996,03/03/19 96,1995 HPV Vaccine 3 Dose IM VFC 2010,02/13/2010 IPV/OPV 08/04/1996,03/03/1996,1995 Influenza Seasonal Unspecifi ed Formulation IM 05/18/2014 Family History Medical History Relation Name Comments Healthy Father Healthy Mother Relation Name Status Comments Father Alive Mother Alive Social History Tobacco Use Types Packs/Day Years Used Date Smoking Tobacco: Every Day Cigarettes 0.5 1 Smokeless Tobacco: Never Alcohol Use Standard Drinks/Week Comments Yes 0 (1 standard drink = 0.6 oz pur e alcohol) occasionally Comments No Sex and Gender Information Value Date Recorded Sex Assigned at Not on file Legal Sex Female 11:04 AM COLLEGE RECRUITER Gender Identity Not on file Sexual Orientation Not on file Occupation Industry Job Start Date Job End Date Not on file Not on file Not on file Not on file Last Filed Vital Signs Vital Sign Reading Time Taken Comments Blood Pressure 104/72 10/17/2020 3:36 PM CDT Pulse 101 10/17/2020 3:36 PM CDT Temperature 36.4 C (97.5 F) 10/17/2020 3:36 PM CDT Respiratory Rate 18 07/06/2020 3:07 PM COLLEGE RECRUITER Oxygen Saturation 97% 10/17/2020 3:36 PM CDT Inhaled Oxygen Concentration - - Weight 129.3 kg (285 lb) 10/17/2020 3:36 PM CDT Height 162.6 cm (5' 4 ) 10/17/2020 3:36 PM CDT Body Mass Index 48.92 10/17/2020 3:36 PM CDT Plan of Treatment Health Maintenance Due Date Last Done Comments DTAP/TDAP/TD VACCINES (4 - Tdap) 2014 08/04/1996, 03/03/1996, 1995 HEPATITIS B VACCINES (1 of 3 - 19+ 3-dose series) 2014 CERVICAL CANCER SCREENING 06/28/2017 PAP SMEAR 06/28/2017 06/28/2014, 09/02/2012 HPV/Cotest (21-29) 06/28/2019 06/28/2014, 09/02/2012 Preventative Visit-Managed Medicaid 04/17/202404/16, 06/28/2014 INFLUENZA VACCINE (#1) 2025 07/06/2020, 2013 HPV/Cotest (30-65) 2025 06/28/2014, 09/02/2012 HPV VACCINES Completed 2010, 04/07, 02/13/2010 Procedures Procedure Name Priority Date/Time Associated Diagnosis Comments CERV/VAG CYTOPATH, THIN PREP IMAGR RFLX HPV Routine 06/28/2014 1:39 PM COLLEGE RECRUITER from Last 3 Months or Most Recently Relevant to Health Maintenance Results * CERV/VAG CYTOPATH, THIN PREP IMAGR RFLX HPV (06/28/2014 1:39 PM COLLEGE RECRUITER) SUPERVISOR ENGRAVING CYTOLOGY REPORT REFLEX HPV [facility] Anatomic Pathology Dept [address] [place] [address] [facility] [address] Patient: NAVIN AMTAMOROS Accn No: [id number] , [id number] Collected: 06/28/2014 1:39:00 PM All cases except those with a DP prefix are performed by pathologists from [facility]. Case type DP is performed by Dr. Juanjo Marcelino, [facility], [facility], [address], [address], [place] [address] (CLIA #[id number]) (Ph. [phone]). SUPERVISOR ENGRAVING PAP - REFLEX HPV History Specimen Type: Endocervical LMP: 12-16-14 Previous Pap History: 2012 Specimen Adequacy Satisfactory for interpretation. The smear shows sufficient numbers of endocervical or metaplastic cells. Diagnosis EPITHELIAL CELL ABNORMALITIES. Atypical squamous cells of undetermined significance (ASC-US). Reticle Printer/ LUIS PEÑA Pathologist: 07/12/14 Completed by: Ramy Oliva MD (Electronically signed by) 07/13/14 Comment The most cost effective method for follow-up is HPV testing on the residual vial. See asccp.org for suggested follow-up. Important Information About Pap Smears The Pap smear is associated with a low but well-documented and probably irreducible false negative rate of up to 10%. Additionally, the false positive rate for a diagnosis of invasive carcinoma or HSIL has been estimated to be approximately 1-10%. Therefore, any visible lesion on the cervix should be biopsied regardless of Pap smear findings. HPV Testing off the Thin Prep vial can be done as a means of further evaluating a Thin Prep Report. For information about ordering the HPV test, phone Virology at . Treatment or follow-up recommendations (if any) that are contained within this report are based upon general recommendations as contained in 2001 Consensus Guidelines For Cervical Cytological Abnormalities NATHAN: October 29, 2001, and are provided as a general guideline rather than as a specific recommendation. Final decisions about the most appropriate treatment and follow-up should be made on an individualized basis by the treating physician in consultation with his/her patient. [facility] 06/28/2014 1:39 PM COLLEGE RECRUITER us Mandy Mcdermott CREDIT OPERATIONS PROCESSOR PATHOLOGY/CYTOLOGY ORDERABLES Final Result [facility] [employer] [facility] CLIA# [id number] [address] [place] [address] from Last 3 Months or Most Recently Relevant to Health Maintenance Insurance [facility] Care Teams Relief Pilot Relationship Specialty Start Date End Date Shereen Garland DO [address] [place] [facility] [place] [address] PCP - General Family Practice 05/25/13
--- OUTSIDE RECORDS SUMMARY | 2025-02-06 16:39 | XMS_ITS | Clinical Summary ---
Author Organization [facility] Address [address] [address] Care Team Providers Care Fire Sprinkler Fitter Name Role Phone ChikisElver coffey Primary Care Provider [phone] Allergies Active Allergy Reactions Criticality Noted Date Comments Adhesive Rash Low 01/11/2015 Paper tape gives me a rash and makes my skin come off Guaifenesin Rash Low 03/19/2012 Medications levonorgestreL (MIRENA) 20 mcg/24 hours (6 yrs) 52 mg IUD 06/29/2020 Acti ve ibuprofen (MOTRIN) 800 mg tabletIndication s:Acute pain of left knee Take 1 Tablet (800 mg) by mouth every 6 hours as needed for Pain, Mild. 60 Tablet 1 10/24/2021 Active metFORMIN (GLUCOPHAGE XR) 500 mg Extended Release 24 hour tablet Take 500 mg by mouth daily. Active Active Problems Problem Noted Date Diagnosed Date PTSD (post-traumatic stress disorder) 04/20/2024 Aggressive behavior of adult 04/20/2024 Anxiety 04/20/2024 Acute cholecystitis 08/31/2023 Morbid obesity with body mass index of 40.0-49.9 05/03/2022 Situational depression 05/03/2022 Intractable chronic migraine without aura and without status migrainosus 05/03/2022 PCOS (polycystic ovarian syndrome) 05/31/2013 Ankle pain, chronic 05/31/2013 GERD (gastroesophageal reflux disease) 3 Bipolar affective disorder 11/09/2011 Obesity 08/31/2010 Resolved Problems Problem Noted Date Diagnosed Date Resolved Date Ankle pain, left 04/30/2012 05/31/2013 Seasonal allergic rhinitis 03/19/2012 1 07/31/2012 Encounters Date Type Department Care Team Description 01/05/2025 External Device Data [facility] ABSTRACTION Provider, Abstract 12/08/2024 External Device Data [facility] ABSTRACTION Provider, Abstract from Last 3 Months Immunizations Immunization Administration Dates Next Due (GARDASIL)(9-45 [...] Types Packs/Day Years Used Date Smoking Tobacco: Former Cigarettes 0.5 17.6 S tarted: 2008 Smokeless Tobacco: Never Tobacco Cessation:Counseling Given: Not Answered Alcohol Use Standard Drinks/Week Comments Not Currently 0 (1 standard drink = 0.6 oz pur e alcohol) Comments No Sex and Gender Information Value Date Recorded Sex Assigned at Female 04/16/2023 10:27 AM CDT Legal Sex Female 12:09 AM GUEST RELATIONS REPRESENTATIVE Gender Identity Female 04/16/2023 10:27 AM CDT Sexual Orientation Choose not to disclose 2023 11:47 PM CDT Last Filed Vital Signs Vital Sign Reading Time Taken Comments Blood Pressure 138/76 07/21/2024 7:49 AM GUEST RELATIONS REPRESENTATIVE Pulse 100 04/28/2024 11:43 AM CDT Temperature 36.6 C (97.8 F) 04/28/2024 11:43 AM CDT Respiratory Rate 18 04/28/2024 11:43 AM CDT Oxygen Saturation 97% 04/28/2024 11:43 AM CDT Inhaled Oxygen Concentration - - Weight 139.7 kg (308 lb) 07/21/2024 7:49 AM GUEST RELATIONS REPRESENTATIVE Height 162.6 cm (5' 4 ) 07/21/2024 7:49 AM GUEST RELATIONS REPRESENTATIVE Body Mass Index 52.87 07/21/2024 7:49 AM GUEST RELATIONS REPRESENTATIVE Plan of Treatment Health Maintenance Due Date Last Done Comments DTAP/TDAP/TD VACCINES (4 - Tdap) 2014 08/04/1996, 03/03/1996, 1995 HEPATITIS B VACCINES (1 of 3 - 19+ 3-dose series) 2014 CERVICAL CANCER SCREENING 2016 HPV/Cotest (21-29) 2016 PAP SMEAR 2016 Preventative Visit-Managed Medicaid 04/17/2024 04/16/2023, 06/28/2014 INFLUENZA VACCINE (#1) 2025 , 07/18/2023, 05/03/2022, Additional history exists HPV VACCINES Completed 2010, 04/07, 02/13/2010 Medical Devices Implanted Type Area General Practice Device Identifier Shelf Expiration Date Model / Serial / Lot Clip Crtg Med/Lrg 1112 - [id number] Implanted:Qty: 1 on 09/01/2023 by Raimundo Herndon DO at [facility] Clip N/A: Abdomen [employer] [id number] 06/04/2028 1112 / / [id number] Insurance [facility] MEDICAID [id number] [id number] Medicaid Advance Directives For more information, please contact: [phone] * Full Code (Latest Code Status on File) Date Activated Date Inactivated Comments 08/31/2023 12:21 PM 09/01/2023 5:45 PM Care Teams Fire Sprinkler Fitter Relationship Specialty Start Date End Date Elver Jimenez DO [address], [place] [address] PCP - General Family Practice 04/16/23
--- NOTE | 2025-02-06 17:07 | W.ED.ABDPA2 ---
HPI - Abdominal Pain General: Chief Complaint: Abdominal Pain Stated Complaint: abd pain Time Seen by Provider: 02/06/25 16:37 History of Present Illness: 29-year-old female with a history of endometriosis and PCOS presents to the emergency room with complaints of worsening pain over the last few days. No fever sweats or chills no dysuria urgency or frequency no diarrhea. No vaginal discharge. Associated Symptoms: Denies chills, dysuria and fever(s) Related Data Home Medications ?Medication ?Instructions ?Recorded ?Confirmed acetaminophen 325 mg tablet 650 mg PO QID PRN Pain 08/23/23 06/18/24 buspirone 5 mg tablet 5 mg PO TID 05/12/24 06/18/24 Previous Rx's ?Medication ?Instructions ?Recorded levonorgestrel (Mirena) 1 device intrauterine .every 5 06/29/20 years #1 ea hydrocodone 5 mg-acetaminophen 325 1 tab PO Q6H PRN pain #14 tabs 08/23/23 mg tablet famotidine 40 mg tablet 40 mg PO DAILY #7 tabs 12/12/23 diclofenac sodium 75 mg 75 mg PO Q12H PRN pain #20 tabs 02/06/25 tablet,delayed release hydrocodone 7.5 mg-acetaminophen 1 tab PO Q8H PRN pain #14 tabs 02/06/25 325 mg tablet promethazine 25 mg tablet 25 mg PO Q6H PRN nausea and 02/06/25 vomiting #20 tabs Allergies Allergy/AdvReac Type Severity Reaction Status Date / Time adhesive Allergy ALGY-Rash Verified 02/06/25 16:47 guaifenesin (From Mucinex) Allergy ALGY-Hives Verified 02/06/25 16:47 Review of Systems Const: Denies: fever(s) or chills Card: Denies: chest pain Resp: Denies: dyspnea GI: Denies: abdominal pain : Denies: dysuria, urinary frequency or urinary urgency Musc: Denies: neck pain or back pain Skin/Breast: Denies: rash PFSH ED PFSH: Medical History No pertinent past medical history Denies history of: Denies diabetes, asthma, seizures,bleeding or clotting disorders, DVT/PE, genital herpes PCP: Mary Mcdermott, MANAGER EVENT History of hypertension She states that she has had high blood pressure that developed after the of her last child. Review of records shows 1 elevated blood pressure when patient came in for evaluation of depression however all other blood pressures were within normal limits. States she was on medication for one month after delivery but nothing since then. She denies following up with after delivery. in 2018 she did not have issues with HTN. PCOS (polycystic ovarian syndrome) Gives history of PCOS-does not remember details. Now has been having irregular cycles. Surgical History History of laparoscopy 02/19/2015--performed by Dr. Gonzalez De La Torre at [facility] for a cyst in her ovary History of tonsillectomy (~2008) 2008 History of 01/23/2016---primary low transverse section. Performed by Dr. Almonte at [facility] in [place], [place]. Delivery for arrest of dilation at 8 cm and arrest of descent at -1 station. Family History Mother Hypertension Cervical cancer, Onset Age: 30 questionable if cancer; most likely precancer Father Hypertension Grandmother Hypertension Paternal Maternal Stroke Paternal grandmother Breast cancer, Onset Age: 50 Paternal grandmother Grandfather Hypertension Paternal Maternal Brother Stroke Family/Other Uterine cancer Maternal Aunt Denies family history of Colon cancer Ovarian cancer Diabetes Heart disease Hyperlipidemia Family history of thyroid problem Social History Smoking and tobacco/nicotine status: current every day tobacco/nicotine user cigarettes [ Other cigarette details: 4-6 cigarettes/day] Alcohol intake: unknown Substance/Drug Use: never Additional social history: - Physical Exam Const: COMMON NORMALS: no acute distress GENERAL APPEARANCE: cooperative and comfortable ORIENTATION/CONSCIOUSNESS: Yes awake, Yes oriented to person, Yes oriented to place and Yes oriented to time HENMT: COMMON NORMALS: normocephalic, atraumatic and hearing grossly normal bilaterally HEAD & SCALP: normocephalic and atraumatic Resp: COMMON NORMALS: normal respiratory effort, No retractions, No use of accessory muscles and clear to auscultation bilaterally AUSCULTATION: clear to auscultation bilaterally Cardio: COMMON NORMALS: regular rate, regular rhythm and No murmurs present (Cardio) RATE: regular rate RHYTHM: regular rhythm GI: COMMON NORMALS: Soft to palpation and No hepatosplenomegaly present AUSCULTATION: Yes normoactive bowel sounds PALPATION: Yes Soft to palpation, No Tenderness to palpation present (GI), No Guarding due to palpation present (GI) and Yes No hepatosplenomegaly present Extremity: COMMON NORMALS: normal to inspection, capillary refill normal, no clubbing, cyanosis or edema, no calf tenderness and no pedal edema Neuro: SENSORIUM/ORIENTATION: Yes oriented to person, Yes oriented to place and Yes oriented to time Skin: COMMON NORMALS: no rashes or lesions noted GENERAL SKIN EXAM: no rashes or lesions noted Course Vital Signs: Vital signs: Vital Signs Temperature 98.0 F 02/06/25 16:43 Pulse Rate 75 02/06/25 18:30 Respiratory Rate 18 02/06/25 17:54 Blood Pressure 129/100 02/06/25 18:00 Pulse Oximetry 98 02/06/25 18:30 Oxygen Delivery Me thod Room Air 02/06/25 18:30 MDM - Abdominal Pain Medical Decision Making Exam is unremarkable. Laboratory test white count normal urine does not show signs of infection chemistry is also normal. Suspect this is a recurrence of her PCOS/endometriosis discussed with the patient advanced imaging ultimately we decided not to do. Will refer her to gynecology for her chronic pelvic pain. Pain medications given to use through the weekend and follow-up with her primary care doctor or the scientific glass blower. Lab Data 02/06/25 17:13 02/06/25 17:13 Labs/Radiology: Laboratory Results WBC 11.18 10^3/uL (3.29-11.43) 02/06/25 17:13 RBC 4.66 10^6/uL (3.85-5.65) 02/06/25 17:13 Hgb 13.60 g/dL (11.27-16.99) 02/06/25 17:13 Hct 40.1 % (36-47) 02/06/25 17:13 MCV 86.1 fl (85-98) 02/06/25 17:13 MCH 29.2 pg (27-33) 02/06/25 17:13 MCHC 33.9 g/dL (30-55) 02/06/25 17:13 RDW 13.4 % (12.1-15.1) 02/06/25 17:13 Plt Count 268 10^3/cmm (157-399) 02/06/25 17:13 MPV 10.3 fL (7.4-10.4) 02/06/25 17:13 Neut % (Auto) 62.2 % 02/06/25 17:13 Lymph % (Auto) 28.2 % 02/06/25 17:13 [place] % (Auto) 6.8 % 02/06/25 17:13 Eos % (Auto) 2.1 % 02/06/25 17:13 Baso % (Auto) 0.3 % 02/06/25 17:13 Neut # (Auto) 6.96 10^3/uL (1.8-7.7) 02/06/25 17:13 Lymph # (Auto) 3.2 10^3/uL (0.8-4.8) 02/06/25 17:13 [place] # (Auto) 0.8 10^3/uL (0.2-0.9) 02/06/25 17:13 Eos # (Auto) 0.2 10^3/uL (0.0-0.8) 02/06/25 17:13 Baso # (Auto) 0.0 10^3/uL (0.0-0.1) 02/06/25 17:13 Nucleated RBC % (auto) 0 % 02/06/25 17:13 Nucleated RBCs # 0.0 /100WBC 02/06/25 17:13 Sodium 137 mmol/L (136-145) 02/06/25 17:13 Potassium 3.7 mmol/L (3.5-5.1) 02/06/25 17:13 Chloride 103 mmol/L (98-107) 02/06/25 17:13 Carbon Dioxide 22 mmol/L (22-29) 02/06/25 17:13 Anion Gap 15.7 (5-19) 02/06/25 17:13 BUN 8 mg/dL (6-20) 02/06/25 17:13 Creatinine 0.7 mg/dL (0.5-0.9) 02/06/25 17:13 GFR Calculation 98.9 mL/min (90-130) 02/06/25 17:13 Glucose 89 mg/dL (65-115) 02/06/25 17:13 Calculated Osmolality 282 mOsm/kg (285-295) L 02/06/25 17:13 Calcium 9.0 mg/dL (8.5-10.5) 02/06/25 17:13 Total Bilirubin 0.3 mg/dL (0.15-1.2) 02/06/25 17:13 AST 15 U/L (0-32) 02/06/25 17:13 ALT 18 U/L (0-33) 02/06/25 17:13 Alkaline Phosphatase 89 U/L (35-105) 02/06/25 17:13 Total Protein 6.8 g/dL (6.6-8.7) 02/06/25 17:13 Albumin 3.9 g/dL (3.5-5.2) 02/06/25 17:13 Globulin 2.9 g/dL (1.3-4.6) 02/06/25 17:13 Lipase 24 U/L (13-60) 02/06/25 17:13 HCG, Qual Negative (Negative) 02/06/25 17:13 Urine Color Yellow (Yellow) 02/06/25 16:55 Urine Appearance Clear (CLEAR) 02/06/25 16:55 Urine pH 7.0 (5-7) 02/06/25 16:55 Ur Specific [place] 1.024 (1.005-1.030) 02/06/25 16:55 Urine Protein Negative (Negative) 02/06/25 16:55 Urine Glucose (UA) Negative (Normal) 02/06/25 16:55 Urine Ketones Trace (Negative) 02/06/25 16:55 Urine Blood Negative (Negative) 02/06/25 16:55 Urine Nitrate Negative (Negative) 02/06/25 16:55 Urine Bilirubin Negative (Negative) 02/06/25 16:55 Urine Urobilinogen 1.0 mg/dL (Negative) 02/06/25 16:55 Ur Leukocyte Esterase Negative (Negative) 02/06/25 16:55 Urine RBC 0-2 /hpf (0-2) 02/06/25 16:55 Urine WBC 0-5 /hpf (0-5) 02/06/25 16:55 Ur Squamous Epith Cells 0-5 /hpf (0-5) 02/06/25 16:55 Amorphous Sediment Not Reportable 02/06/25 16:55 Urine Bacteria None seen /hpf (NONE) 02/06/25 16:55 Hyaline Casts 0-4 /lpf H 02/06/25 16:55 No radiology studies performed this visit Discharge Plan Discharge Patient Disposition: Home Clinical Impression: Chronic female pelvic pain, Endometriosis, PCOS (polycystic ovarian syndrome) Condition: Stable Prescriptions: New diclofenac sodium 75 mg tablet,delayed release (DR/EC) 75 mg PO Q12H PRN (Reason: pain) Qty: 20 0RF hydrocodone-acetaminophen 7.5-325 mg tablet 1 tab PO Q8H PRN (Reason: pain) Qty: 14 0RF promethazine 25 mg tablet 25 mg PO Q6H PRN (Reason: nausea and vomiting) Qty: 20 0RF No Action Mirena 20 mcg/24 hours (6 yrs) 52 mg intrauterine device 1 device intrauterine .every 5 years Qty: 1 0RF buspirone 5 mg tablet 5 mg PO TID famotidine 40 mg tablet 40 mg PO DAILY Qty: 7 0RF acetaminophen 325 mg Tablet 650 mg PO QID PRN (Reason: Pain) hydrocodone-acetaminophen 5-325 mg tablet 1 tab PO Q6H PRN (Reason: pain) Qty: 14 0RF Discharge Orders: Discharge ED (Routine); Ordered 02/06/25 Ordered By: Rafat Hanna Referrals: Dinah Sanches DO [Primary Care Provider, COLLABORATING SUPERVISING PHYSICIAN] Discharge Diet: Usual diet Discharge Activity: Increase activity as tolerated Patient Instructions: Opioid Safety, Pain Management, Patient Portal & Terrell Instructions Activity Restrictions/Additional Instructions: [facility]. It is very important that you follow up as instructed or that you return to the Emergency Department should you have concerns or if your condition changes or worsens in any way. You were seen emergency room for chronic abdominal and pelvic pain. Laboratory tests are unremarkable. Recommend that you follow-up with gynecology manager play will make arrangements for a referral. Use pain medications given as needed. Print Language: Kazakh Coding Level of Care Code ED Statistics Intern for Uriah Singletary
[2025-02-06 17:09] LABS: Glucose Urine UA Negative (Normal); Nitrate Urine Negative (Negative); Specific Gravity, Urine 1.024 (1.005-1.030)
[2025-02-06 17:11] LABS: Add Urine Microscopic? YES
[2025-02-06 17:18] LABS: Hematocrit 40.1 % (36-47); Hemoglobin 13.60 g/dL (11.27-16.99); Mean Corpuscular HGB Conc 33.9 g/dL (30-55); Mean Corpuscular Hemoglobin 29.2 pg (27-33); Mean Corpuscular Volume 86.1 fl (85-98); Nucleated Red Blood Cells % 0 %; Platelet Count 268 10^3/cmm (157-399); Red Blood Count 4.66 10^6/uL (3.85-5.65); White Blood Count 11.18 10^3/uL (3.29-11.43)
[2025-02-06 17:29] LABS: HCG, Serum Qual Negative (Negative)
[2025-02-06 17:38] LABS: Alanine Aminotransferase 18 U/L (0-33); Albumin Level 3.9 g/dL (3.5-5.2); Alkaline Phosphatase 89 U/L (35-105); Anion Gap 15.7 (5-19); Aspartate Amino Transferase 15 U/L (0-32); Blood Urea Nitrogen 8 mg/dL (6-20); Calcium 9.0 mg/dL (8.5-10.5); Carbon Dioxide 22 mmol/L (22-29); Chloride 103 mmol/L (98-107); Creatinine Clr Calc Pharmacy 159.9397; Globulin 2.9 g/dL (1.3-4.6); Glucose 89 mg/dL (65-115); Lipase 24 U/L (13-60); Osmolality Calculated 282 mOsm/kg (285-295); Potassium 3.7 mmol/L (3.5-5.1); Sodium 137 mmol/L (136-145); Total Protein 6.8 g/dL (6.6-8.7)
[2025-02-06] MEDS: promethazine 25 mg/mL SDV 1 mL IM (17:54)
[2025-02-06] MEDS: morphine 4 mg/mL SDV 1 mL IVP (17:54)
--- NOTE | 2025-02-08 07:39 | DCPLANNER ---
messaged womens [facility] for er f/u
== END 2025-02-06 19:06 | disposition home or self-care (01) ==
PROVIDERS: Emergency Medicine; Emergency Provider Family Medicine; PCP Family Medicine
DX: R10.2 Pelvic and perineal pain (principal); N80.9 Endometriosis, unspecified; E28.2 Polycystic ovarian syndrome; F17.210 Nicotine dependence, cigarettes, uncomplicated
CPT/HCPCS: 36415; 80053; 81001; 83690; 84703; 85025; 96372; 96374; 96375; 99284; J1885; J2270; J2550

== ENCOUNTER 2025-04-03 14:39 | Emergency (ER) | payer BC, MEDICAID, SELFPAY ==
--- OUTSIDE RECORDS SUMMARY | 2025-03-31 14:46 | XMS_ITS | Encounter Summary ---
Author Organization [employer] Address [address] [place] [address] Care Team Providers Care Tin Pourer Name Role Phone Elver Jimenez Primary Care Provider [phone] Reason for Visit * Reason Comments Back Pain Lower back pain over couple weeks. Pt initially thought this was d/t sciatica but pt reports pain is worse than it has ever been. * Auth/Cert (Routine) Specialty Diagnoses / Procedures Referred By Susan rosario Referred To Contact Emergency Medicine [facility] Emergency Department [address] [place] [phone] Phone: tel: fax: Referral ID Status Reason Start Date Expiration Date Visits Re quested Visits Authorized [id number] 1 1 Encounter Details Date Type Department Care Team (Late st Contact Info) Description 03/31/2025 2:46 PM CDT - 03/31/2025 4:50 PM CDT Emergency [facility] Emergency Department [address] [place] [phone] Lumbar paraspinal muscle spasm (Primary Dx) Discharge Disposition: Home or Self Care Social History Tobacco Use Types Packs/Day Years Used Date Smoking Tobacco: Former Cigarettes 0.5 17.7 S tarted: 2007 Smokeless Tobacco: Never Alcohol Use Standard Drinks/Week Comments Not Currently 0 (1 standard drink = 0.6 oz pur e alcohol) Feeling Safe Answer Date Recorded Are you in a relationship wi th someone who hurts you emotionally and/or physically? 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 Gender Identity Female 04/16/2023 10:27 AM CDT Sexual Orientation Not on file documented as of this encounter Last Filed Vital Signs Vital Sign Reading Time Taken Comments Blood Pressure 132/85 03/31/2025 1:33 PM CDT Pulse 67 03/31/2025 1:33 PM CDT Temperature 36.8 C (98.2 F) 03/31/2025 1:33 PM CDT Respiratory Rate 12 03/31/2025 1:33 PM CDT Oxygen Saturation 98% 03/31/2025 1:33 PM CDT Inhaled Oxygen Concentration - - Weight - - Height - - Body Mass Index - - documented in this encounter Discharge Instructions * Discharge Instructions* Syd Fuentes PA - 03/31/2025 4:40 PM CDT Tylenol for mild pain, take the steroids as directed for inflammation and help of the radiation of pain down the leg. Use the muscle relaxers at nighttime to help with recovery sleep. Use Alburtis for severe pain. Follow-up with primary care provider for recheck. documented in this encounter Medications at Time of Discharge lamoTRIgine (LaMICtal) 25 mg tablet Take 25 mg by mouth daily. busPIRone (BUSPAR) 10 mg tablet Take 10 mg by mouth 3 times daily. predniSONE (DELTASONE) 20 mg tablet Take 1 Tablet (20 mg) by mouth 2 times daily with meals for 5 days. 10 Tablet 03/31/2025 04/05/2025 methocarbamoL (ROBAXIN) 500 mg tablet Take 1-2 Tablets (500-1,000 mg) by mouth 3 times daily. 30 Tablet 03/31/2025 HYDROcodone-aceta minophen (NORCO) 5-325 mg tabletIndications :Lumbar paraspinal muscle spasm Take 1 Tablet by mouth every 6 hours as needed for Pain, Moderate. Max Daily Amount: 4 Tablets 10 Tablet 03/31/2025 metFORMIN (GLUCOPHAGE XR) 500 mg Extended Release 24 hour tablet Take 500 mg by mouth daily. ibuprofen (MOTRIN) 800 mg tabletIndications :Acute pain of left knee Take 1 Tablet (800 mg) by mouth every 6 hours as needed for Pain, Mild. 60 Tablet 1 10/24/2021 levonorgestreL (MIRENA) 20 mcg/24 hours (6 yrs) 52 mg IUD 06/29/2020 documented as of this encounter ED Notes * Kimberly Ibanez RN - 03/31/2025 4:49 PM CDT Pt discharged to home. Pt verbalized understanding of discharge instructions, prescriptions, and need for follow up care. Pt ambulatory out of facility. BP 132/85 Pulse 67 Temp 98.2 ??F (36.8 ??C) (Oral) Resp 12 SpO2 98% * Kimberly Ibanez RN - 03/31/2025 3:43 PM CDT Pt ambulatory to restroom with steady gait. * Kimberly Ibanez RN - 03/31/2025 3:03 PM CDT Pt reports she has been experiencing lower back and bilateral leg pain. Initially pt thought this was related to sciatica however this is worse than it has been in the past. She reports that legs shake uncontrollably when bearing weight. * Oneal Cobb NP - 03/31/2025 1:36 PM CDT Vitals: 09/24/25 1333 BP: 132/85 Pulse: 67 Resp: 12 Temp: 98.2 ??F (36.8 ??C) SpO2: 98% Patient presents to the emergency department with a chief complaint of low back pain that radiates to her right and left groin area. Patient also states pain radiates to her left ribs area. Patient denies any specific trauma. Patient states that she had concern it was sciatica however the past 3 to4 days symptoms have progressively gotten worse and symptoms and symptoms have changed that are notconsistent with her sciatic nerve pain. Patient also states she has urinary frequency. She states that she did start Lamictal 1 month ago. Patient also states she has a history of endometriosis and that this could also be related. Patient is ambulatory at triage. Exam: Constitutional: Alert and oriented with no apparent distress. Respiratory: No obvious signs of respiratory distress. Neuro: Alert and oriented X3. Psych: Cooperative. Normal mood and affect. Pain 7/10 A medical screening exam was initiated in our triage area tailored to the patient's chief complaint. Focused diagnostics and therapies have been initiated. ER staff will continue and expand as appropriate to help identify any life or limb threatening conditions while awaiting an exam room in the main area of the ED. Continued care, evaluation and management of this patient will be performed throughout their stay. I advised patient to inform front end engineer nurse of any change in symptoms. The patient's evaluation and anticipated ongoing care plan was discussed in detail with them to make sure theyare aware of what to expect during their stay. * Syd Fuentes PA - 03/31/2025 1:01 PM CDT HISTORY OF PRESENT ILLNESS 29-year-old female with history of bipolar disorder, obesity, GERD, PCOS, PTSD presents [facility] of bilateral low back pain starting 3 to 4 days ago. Symptoms initially started on theright side with some shooting pain down the right leg and then pain migrated to the left side with discomfort over the left lateral hip and anterior thigh. Pain seems to originate in the low back. She denies any numbness in the legs. No numbness in the groin. No change in the ability to stool or urinate. Pain comes on quickly and has taken her by surprise to almost fall down when she is walking. She denies taking any medications today to help her self. Back Pain PAST MEDICAL HISTORY REVIEWED MEDICAL: Patient has a past medical history of Behavioral problem and PCOS (polycystic ovarian syndrome). SURGICAL: Patient has a past surgical history that includes tonsillectomy and pr laparoscopy surg cholecystectomy (N/A, 09/01/2023). ALLERGIES Adhesive and Guaifenesin PHYSICAL EXAM INITIAL VS BP: 132/85 (03/31/25 1333), Heart Rate: 67 bpm (03/31/25 1333), Resp: 12 (03/31/25 1333), Pulse: 67(03/31/25 1333), Temp: 98.2 ??F (36.8 ??C) (03/31/25 1333), Temp src: Oral (03/31/25 1333), SpO2: 98 % (03/31/25 1333), Height: (not recorded), Weight: (not recorded), BMI (Calculated): (not recorded) No LMP recorded. Patient has had an implant. Physical Exam Vitals and nursing note reviewed. Constitutional: General: She is not in acute distress. Appearance: Normal appearance. She is obese. She is not diaphoretic. Comments: Pleasant, well-appearing, answers questions appropriately. HENT: Head: Normocephalic and atraumatic. Right Ear: Tympanic membrane normal. Left Ear: Tympanic membrane normal. Nose: Nose normal. No congestion or rhinorrhea. Eyes: General: Right eye: No discharge. Left eye: No discharge. Extraocular Movements: Extraocular movements intact. Pupils: Pupils are equal, round, and reactive to light. Cardiovascular: Rate and Rhythm: Normal rate and regular rhythm. Pulmonary: Effort: Pulmonary effort is normal. No respiratory distress. Breath sounds: Normal breath sounds. No stridor. No wheezing, rhonchi or rales. Abdominal: General: There is no distension. Palpations: Abdomen is soft. Tenderness: There is no abdominal tenderness. Comments: Abdominal includes GI system as noted. Musculoskeletal: General: Tenderness present. Normal range of motion. Cervical back: Normal range of motion and neck supple. Comments: Diffuse tenderness across the low lumbar and sacral spine. SI joints tender bilaterally, left worse than right. Reproducible tenderness over the lateral buttocks/hip region. Negative straight leg raise bilaterally. 5 out of 5 strength at the hips knees and ankles bilaterally. Sensation intact. Dorsalis pedis pulses 2+. Patellar reflexes 1+ bilaterally Skin: General: Skin is warm and dry. Capillary Refill: Capillary refill takes less than 2 seconds. Findings: No erythema, lesion or rash. Neurological: General: No focal deficit present. Mental Status: She is alert and oriented to person, place, and time. Cranial Nerves: No cranial nerve deficit. Sensory: No sensory deficit. Motor: No weakness. Coordination: Coordination normal. Psychiatric: Mood and Affect: Mood normal. Behavior: Behavior normal. DIAGNOSTICS LAB: CBC WITH DIFFERENTIAL - Abnormal Result Value WBC 10.5 RBC 4.99 HEMOGLOBIN 14.5 HEMATOCRIT 42.3 MCV 84.8 MCH 29.1 MCHC 34.3 PLATELETS 285 MPV 10.0 RDW 13.5 RDW-STDEV 41.7 NEUTROPHILS 55 LYMPHOCYTES 34 MONOCYTES 7 EOSINOPHILS 3 BASOPHILS 1 IMMATURE GRANULOCYTES 0 NEUTROPHIL ABSOLUTE 5.74 LYMPHOCYTE ABSOLUTE 3.52 MONOCYTE ABSOLUTE 0.78 (*) EOSINOPHIL ABSOLUTE 0.36 BASOPHILS ABSOLUTE 0.06 IMMATURE GRANULOCYTES ABSOLUTE 0.03 SMEAR REVIEWED: NA - Not Applicable COMPREHENSIVE METABOLIC PANEL - Normal SODIUM 139 POTASSIUM 4.0 CHLORIDE 102 CO2 23 CALCIUM 9.6 BUN 10 CREATININE 0.63 GLUCOSE 94 TOTAL PROTEIN 7.6 ALBUMIN 4.2 BILIRUBIN TOTAL 0.4 ALKALINE PHOSPHATASE 102 AST 21 ALT 22 GFR >60 ANION GAP 14 URINALYSIS WITH REFLEX MICROSCOPIC - Normal COLOR UA Pale Yellow CLARITY UA Clear SPECIFIC GRAVITY UA 1.010 PH UA 7.5 LEUKOCYTE ESTERASE UA Negative NITRITE UA Negative PROTEIN UA Negative GLUCOSE UA Negative KETONES UA Negative UROBILINOGEN UA <2.0 BILIRUBIN UA Negative BLOOD UA Negative EXTRA TUBE (URINE BRITT) RADIOLOGY: No orders to display EKG: PROCEDURES Procedures MEDICAL DECISION MAKING AND PLAN OF CARE Medical Decision Making 29-year-old female here with bilateral low back pain starting 3-4 days ago. Initially started on the right and had some migration to the left. Pain is reproducible on exam over the lower lumbar spinous musculature bilaterally with more tenderness over the left SI joint. Sacroiliitis as well as lumbar spasm and strain suspected. Analgesia provided here which helped symptoms significantly. On physical exam she has no weakness or numbness concerning for an acute central spinal process requiring emergent MRI at this time. Medications provided for home including prednisone, muscle relaxer and a short course of pain meds should she need it. Return precautions were discussed in detail. Laboratory evaluation performed during her ER stay showed no acute derangement requiring further intervention or evaluation in the hospital setting. Amount and/or Complexity of Data Reviewed Labs: ordered. Risk Prescription drug management. Clinical Scoring & Consults Medications Administered During the ED Stay from 03/31/2025 1301 to 03/31/2025 1745 Date/Time Order Dose Route Action 03/31/2025 1536 CDT orphenadrine citrate (NORFLEX) 30 mg/mL injection 60 mg 60 mg IM Given 03/31/2025 1537 CDT dexAMETHasone (DECADRON) injection 10 mg 10 mg IM Given 03/31/2025 1536 CDT HYDROcodone-acetaminophen (NORCO) 5-325 mg per tablet 1 Tablet 1 Tablet Oral Given Discharge Medication List as of 03/31/2025 4:43 PM START taking these medications Details predniSONE (DELTASONE) 20 mg tablet Take 1 Tablet (20 mg) by mouth 2 times daily with meals for 5 days., Disp-10 Tablet, R-0 methocarbamoL (ROBAXIN) 500 mg tablet Take 1-2 Tablets (500-1,000 mg) by mouth 3 times daily., Disp-30 Tablet, R-0 HYDROcodone-acetaminophen (NORCO) 5-325 mg tablet Take 1 Tablet by mouth every 6 hours as needed for Pain, Moderate. Max Daily Amount: 4 Tablets, Disp-10 Tablet, R-0 CONTINUE these medications which have NOT CHANGED Details lamoTRIgine (LaMICtal) 25 mg tablet Take 25 mg by mouth daily. busPIRone (BUSPAR) 10 mg tablet Take 10 mg by mouth 3 times daily. metFORMIN (GLUCOPHAGE XR) 500 mg Extended Release 24 hour tablet Take 500 mg by mouth daily. ibuprofen (MOTRIN) 800 mg tablet Take 1 Tablet (800 mg) by mouth every 6 hours as needed for Pain, Mild., Disp-60 Tablet, R-1 levonorgestreL (MIRENA) 20 mcg/24 hours (6 yrs) 52 mg IUD LAST VS BP: 132/85 (03/31/25 1333), Heart Rate: 67 bpm (03/31/25 1333), Resp: 12 (03/31/25 1333), Pulse: 67(03/31/25 1333), Temp: 98.2 ??F (36.8 ??C) (03/31/25 1333), Temp src: Oral (03/31/25 133), SpO2: 98 % (03/31/251332) CLINICAL IMPRESSION Diagnosis Diagnosis Comment Added By Time Added Lumbar paraspinal muscle spasm [M62.830] Syd Fuentes PA 03/31/2025 4:13 PM DISPOSITION, EDUCATION AND MEDICATION RECONCILIATION Medications reconciled. See after visit summary for patient education on discharged patients. ED Disposition ED Disposition Discharge Condition Stable User Syd Fuentes PA Date/Time SatMar 31, 2025 4:41 PM Comment -- ATTESTATION STATEMENTS Cosigned by Lavell Reddy DO at 04/01/2025 2:39 AM CDT documented in this encounter Miscellaneous Notes * Gen AI JOSE - GENERATIVE AI HANDOFF NOTE - 04/01/2025 11:43 PM CDT ## ER_course: ## # DIAGNOSIS: Lumbar paraspinal muscle spasm. The patient, a 29-year-old female with a history of bipolar disorder, obesity, GERD, PCOS, and PTSD, presented with bilateral low back pain radiating to the groin and left rib area, worsening over 3-4 days. She initially suspected sciatica but noted changes inconsistent with previous sciatic nerve pain. The pain was reproducible over the lower lumbar spine and left SI joint, with sacroiliitis and lumbar spasm suspected. She also reported urinary frequency and uncontrollable leg shaking when bearing weight. # During the ER visit, the patient was administered orphenadrine citrate (NORFLEX) 60 mg IM, dexamethasone (DECADRON) 10 mg IM, and hydrocodone-acetaminophen (NORCO) 5-325 mg orally. The physical exam showed no weakness or numbness requiring emergent MRI. Laboratory evaluations, including CBC and comprehensive metabolic panel, showed no acute derangements. The patient was discharged with a stable condition. ## Follow_up_orders: ## # START taking new medications: prednisone 20 mg twice daily for 5 days, methocarbamol 500-1000 mg three times daily, and hydrocodone-acetaminophen (NORCO) as needed for moderate pain, with a maximum of 4 tablets daily. # CONTINUE current medications: lamotrigine, buspirone, metformin, ibuprofen, and levonorgestrel IUD. # Return precautions were discussed, and the patient was advised to follow up with her primary care provider if symptoms do not improve. ## Home_Situation: ## # No specific factors impairing follow-up care were noted in the ER documentation. The patient was ambulatory and verbalized understanding of discharge instructions. documented in this encounter Plan of Treatment Not on file documented as of this encounter Procedures Procedure Name Priority Date/Time Associated Diagnosis Comments CBC WITH DIFFERENTIAL Stat 03/31/2025 2:00 PM CDT COMPREHENSIVE METABOLIC PANEL Stat 03/31/2025 2:00 PM CDT EXTRA TUBE (URINE BRITT) Stat 03/31/2025 1:54 PM CDT URINALYSIS W/REFLEX MICROSCOPIC Stat 03/31/2025 1:54 PM CDT documented in this encounter Results * COMPREHENSIVE METABOLIC PANEL (03/31/2025 2:00 PM CDT) SODIUM 139 136 - 145 mmol/L 03/31/2025 2:[address] [facility] POTASSIUM 4.0 3.5 - 5.1 mmol/L 03/31/2025 2:[address] [facility] CHLORIDE 102 98 - 107 mmol/L 03/31/2025 2:[address] [facility] CO2 23 22 - 29 mmol/L 03/31/2025 2:44 PM CDT [facility] CALCIUM 9.6 8.6 - 10.0 mg/dL 03/31/2025 2:[address] [facility] BUN 10 6 - 20 mg/dL 03/31/2025 2:[address] [facility] CREATININE 0.63 0.51 - 0.95 mg/dL 03/31/2025 2:44 PM CDT [facility] GLUCOSE 94 74 - 99 mg/dL 03/31/2025 2:44 PM CDT [facility] TOTAL PROTEIN 7.6 6.4 - 8.3 g/dL 03/31/2025 2:44 PM CDT [facility] ALBUMIN 4.2 3.5 - 5.2 g/dL 03/31/2025 2:44 PM CDT [facility] BILIRUBIN TOTAL 0.4 0.0 - 1.0 mg/dL 03/31/2025 2:44 PM CDT [facility] ALKALINE PHOSPHATASE 102 35 - 104 U/L 03/31/2025 2:44 PM CDT [facility] AST 21 10 - 35 U/L 03/31/2025 2:44 PM CDT [facility] ALT 22 <=35 U/L 03/31/2025 2:44 PM CDT [facility] GFR >60 >=60 mL/min/1.7 3 sq meter 03/31/2025 2:44 PM CDT [facility] Comment:eGFR calculated with 2020 CKD-EPI equation. Vegetarian diet, extremely high or low muscle mass, and may affect results. Cystatin C with Glomerular Filtration Rate is a suitable alternative for these patients. ANION GAP 14 9 - 20 mmol/L 03/31/2025 2:44 PM CDT [facility] Blood Venipuncture / Unknown 03/31/2025 2:00 PM CDT 03/31/2025 2:10 PM CDT us Oneal Cbob NP CHEMISTRY ORDERABLES Final Res ult [facility] CLIA # [id number] [address] [place] [id number] * (ABNORMAL) CBC WITH DIFFERENTIAL (03/31/2025 2:00 PM CDT) WBC 10.5 4.5 - 11.0 K/uL 03/31/2025 2:17 PM [facility] RBC 4.99 4.20 - 5.40 M/uL 03/31/2025 2:17 PM [facility] HEMOGLOBIN 14.5 12.0 - 16.0 g/dL 03/31/2025 2:17 PM [facility] HEMATOCRIT 42.3 36.0 - 46.0 % 03/31/2025 2:17 PM [facility] MCV 84.8 84.0 - 103.0 fL 03/31/2025 2:17 PM [facility] MCH 29.1 27.0 - 34.0 pg 03/31/2025 2:17 PM [facility] MCHC 34.3 30.0 - 35.0 g/dL 03/31/2025 2:17 PM [facility] PLATELETS 285 140 - 440 K/uL 03/31/2025 2:17 PM [facility] MPV 10.0 8.9 - 12.8 fL 03/31/2025 2:17 PM [facility] RDW 13.5 11.0 - 14.5 % 03/31/2025 2:17 PM [facility] RDW-STDEV 41.7 37.0 - 54.0 fL 03/31/2025 2:17 PM [facility] NEUTROPHILS 55 42 - 75 % 03/31/2025 2:17 PM [facility] LYMPHOCYTES 34 24 - 44 % 03/31/2025 2:17 PM [facility] MONOCYTES 7 2 - 10 % 03/31/2025 2:17 PM [facility] EOSINOPHILS 3 0 - 7 % 03/31/2025 2:17 PM [facility] BASOPHILS 1 0 - 1 % 03/31/2025 2:17 PM [facility] IMMATURE GRANULOCYTES 0 0 - 2 % 03/31/2025 2:17 PM [facility] NEUTROPHIL ABSOLUTE 5.74 2.00 - 8.00 K/uL 03/31/2025 2:17 PM CDT [facility] LYMPHOCYTE ABSOLUTE 3.52 1.20 - 4.00 K/uL 03/31/2025 2:17 PM CDT [facility] MONOCYTE ABSOLUTE 0.78(H) 0.10 - 0.60 K/uL 03/31/2025 2:17 PM CDT [facility] EOSINOPHIL ABSOLUTE 0.36 0.00 - 0.70 K/uL 03/31/2025 2:17 PM CDT [facility] BASOPHILS ABSOLUTE 0.06 0.00 - 0.20 K/uL 03/31/2025 2:17 PM CDT [facility] IMMATURE GRANULOCYTES ABSOLUTE 0.03 0.00 - 0.10 K/uL 03/31/2025 2:17 PM CDT [facility] SMEAR REVIEWED: NA - Not Applicable 03/31/2025 2:17 PM CDT [facility] Blood Venipuncture / Unknown 03/31/2025 2:00 PM CDT 03/31/2025 2:10 PM CDT Oneal Cobb NP HEMATOLOGY ORDERABLES Final Re sult [facility] CLIA # [id number] [address] [address] * EXTRA TUBE (URINE BRITT) (03/31/2025 1:54 PM CDT) Urine URINE SPECIMEN OBTAINED BY CLEAN CATCH PROCEDURE / Unknown Collection / Unknown 03/31/2025 1:54 PM CDT 03/31/2025 2:06 PM CDT Oneal Cobb TENNIS BALL COVERER HAND URINE ORDERABLES Final Result Performing Organization Address City/[facility]/ZIP Co de Phone Number [facility] CLIA # [id number] [address] [address] . [place], [place] [id number] * URINALYSIS WITH REFLEX MICROSCOPIC (03/31/2025 1:54 PM CDT) COLOR UA Pale Yellow Pale to Dark Yellow 03/31/2025 2:12 PM CDT [facility] CLARITY UA Clear Clear 03/31/2025 2:12 PM CDT [facility] SPECIFIC GRAVITY UA 1.010 1.003 - 1.035 03/31/2025 2:12 PM CDT [facility] PH UA 7.5 5.0 - 8.0 03/31/2025 2:12 PM CDT [facility] LEUKOCYTE ESTERASE UA Negative Negative 03/31/2025 2:12 PM CDT [facility] NITRITE UA Negative Negative 03/31/2025 2:12 PM CDT [facility] PROTEIN UA Negative Negative 03/31/2025 2:12 PM CDT [facility] GLUCOSE UA Negative Negative 03/31/2025 2:12 PM CDT [facility] KETONES UA Negative Negative 03/31/2025 2:12 PM CDT [facility] UROBILINOGEN UA <2.0 <2.0 mg/dL 2:12 PM CDT [facility] BILIRUBIN UA Negative Negative 03/31/2025 2:12 PM CDT [facility] BLOOD UA Negative Negative 03/31/2025 2:12 PM CDT [facility] Urine URINE SPECIMEN OBTAINED BY CLEAN CATCH PROCEDURE / Unknown Collection / Unknown 03/31/2025 1:54 PM CDT 03/31/2025 2:06 PM CDT Oneal Cobb NP URINE ORDERABLES Final Result [facility] CLIA # [id number] [address] [address] documented in this encounter Visit Diagnoses Diagnosis Lumbar paraspinal muscle spasm- Primary Other symptoms referable to back documented in this encounter Administered Medications Inactive Administered Medications - up to 3 most recent administrations Medication Order MAR Action Action Date Dose Rate Site dexAMETHasone (DECADRON) injection 10 mg 10 mg, IM, ONE TIME ONLY, 1 dose, On Sat03/31/25 at 1530, Routine Given 03/31/2025 3:37 PM CDT 10 mg Arm, Right Upper HYDROcodone-acetaminophe n (NORCO) 5-325 mg per tablet 1 Tablet 1 Tablet, Oral, ONE TIME ONLY, 1 dose, On Sat03/31/25 at 1530, Routine Given 03/31/2025 3:36 PM CDT 1 Tablet orphenadrine citrate (NORFLEX) 30 mg/mL injection 60 mg 60 mg, IM, ONE TIME ONLY, 1 dose, On Sat03/31/25 at 1530, Routine Given 03/31/2025 3:36 PM CDT 60 mg Arm, Right Upper documented in this encounter Active and Recently Administered Medications Times are shown in CDT. Scheduled Medication Order 03/29/2025 03/30/2025 03/31/2025 dexAMETHasone (DECADRON) injection 10 mg (COMPLETED) 10 mg, IM, ONE TIME ONLY, 1 dose, On Sat03/31/25 at 1530, Routine 1537 (Given - Provid er: Kimberly Ibanez RN) HYDROcodone-acetaminophen (NORCO) 5-325 mg per tablet 1 Tablet (COMPLETED) 1 Tablet, Oral, ONE TIME ONLY, 1 dose, On Sat03/31/25 at 1530, Routine 153 (Given - Provid er: Kimberly Ibanez RN) orphenadrine citrate (NORFLEX) 30 mg/mL injection 60 mg (COMPLETED) 60 mg, IM, ONE TIME ONLY, 1 dose, On Sat03/31/25 at 1530, Routine 153 (Given - Provid er: Kimberly Ibanez RN) documented in this encounter Additional Health Concerns Assessment Noted Time PHQ-9 Depression Total Score: 4 04/28/20 1:00 PM CDT documented as of this encounter Care Teams Tin Pourer Relationship Specialty Start Date End Date Elver Jimenez DO [address], [place] [address] PCP - General Family Practice 04/16/23 documented as of this encounter
--- OUTSIDE RECORDS SUMMARY | 2025-04-03 14:44 | XMS_ITS | Clinical Summary ---
Author Organization [facility] Address [address] [address] Care Team Providers Care Director Enterprise Sales Name Role Phone Elver Jimenez Primary Care Provider [phone] Allergies Active Allergy Reactions Criticality Noted Date Comments Adhesive Rash Low 01/11/2015 Paper tape gives me a rash and makes my skin come off Guaifenesin Rash Low 03/19/2012 Medications levonorgestreL (MIRENA) 20 mcg/24 hours (6 yrs) 52 mg IUD 06/29/2020 Acti ve ibuprofen (MOTRIN) 800 mg tabletIndicatio ns:Acute pain of left knee Take 1 Tablet (800 mg) by mouth every 6 hours as needed for Pain, Mild. 60 Tablet 1 10/24/2021 Active metFORMIN (GLUCOPHAGE XR) 500 mg Extended Release 24 hour tablet Take 500 mg by mouth daily. Active lamoTRIgine (LaMICtal) 25 mg tablet Take 25 mg by mouth daily. Active busPIRone (BUSPAR) 10 mg tablet Take 10 mg by mouth 3 times daily. Active predniSONE (DELTASONE) 20 mg tablet Take 1 Tablet (20 mg) by mouth 2 times daily with meals for 5 days. 10 Tablet 03/31/2025 Active methocarbamoL (ROBAXIN) 500 mg tablet Take 1-2 Tablets (500-1,000 mg) by mouth 3 times daily. 30 Tablet 03/31/2025 Active HYDROcodone-bryson taminophen (NORCO) 5-325 mg tabletIndicatio ns:Lumbar paraspinal muscle spasm Take 1 Tablet by mouth every 6 hours as needed for Pain, Moderate. Max Daily Amount: 4 Tablets 10 Tablet 03/31/2025 Active Active Problems Problem Noted Date Diagnosed [...] Encounters Date Type Department Care Team Description 03/31/2025 2:46 PM CDT - 03/31/2025 4:50 PM CDT Emergency [facility] Emergency Department [address] [place] [phone] Lumbar paraspinal muscle spasm (Primary Dx) Discharge Disposition: Home or Self Care 03/31/2025 Travel 03/09/2025 External Device Data STL ABSTRACTION Provider, Abstract 02/23/2025 External Device Data STL ABSTRACTION Provider, Abstract 01/05/2025 External Device Data STL ABSTRACTION Provider, [...] 17.7 S tarted: 2007 Smokeless Tobacco: Never Tobacco Cessation:Counseling Given: Not [...] AM CDT Legal Sex Female 12:09 AM OPERATIONS INTELLIGENCE Gender Identity Female 04/16/2023 10:27 AM CDT Sexual Orientation Not on file Last Filed Vital Signs Vital Sign Reading Time Taken Comments Blood Pressure 132/85 03/31/2025 1:33 PM CDT Pulse 67 03/31/2025 1:33 PM CDT Temperature 36.8 C (98.2 F) 03/31/2025 1:33 PM CDT Respiratory Rate 12 03/31/2025 1:33 PM CDT Oxygen Saturation 98% 03/31/2025 1:33 PM CDT Inhaled Oxygen Concentration - - Weight 139.7 kg (308 lb) 07/21/2024 7:49 AM OPERATIONS INTELLIGENCE Height 162.6 cm (5' 4 ) 07/21/2024 7:49 AM OPERATIONS INTELLIGENCE Body Mass Index 52.87 07/21/2024 7:49 AM OPERATIONS INTELLIGENCE Plan of Treatment Health Maintenance Due Date Last Done Comments HEPATITIS B VACCINES (1 of 3 - 19+ 3-dose series) 2014 CERVICAL CANCER SCREENING 2016 HPV/Cotest (21-29) 2016 PAP SMEAR 2016 Preventative Visit-Managed Medicaid 04/17/2024 04/16/2023, 06/28/2014 INFLUENZA VACCINE (#1) 2025 , 04/19/2017, 05/18/2014, Additional history exists DTAP/TDAP/TD VACCINES (5 - T d or Tdap) 11/22/2027 11/21/2017, 08/04/1996, 08/04/1996, Additional history exists HPV VACCINES Completed 2010, 04/07, 02/13/2010 Medical Devices Implanted Type Area Sketch Artist Device Identifier Shelf Expiration Date Model / Serial / Lot Clip Crtg Med/Lrg 1112 - [id number] Implanted:Qty: 1 on 09/01/2023 by Raimundo Herndon DO at [facility] Clip N/A: Abdomen [employer] [id number] 06/04/2028 1112 / / [id number] Procedures Procedure Name Priority Date/Time Associated Diagnosis Comments COMPREHENSIVE METABOLIC PANEL Stat 03/31/2025 2:00 PM CDT CBC WITH DIFFERENTIAL Stat 03/31/2025 2:00 PM CDT EXTRA TUBE (URINE BRITT) Stat 03/31/2025 1:54 PM CDT URINALYSIS W/REFLEX MICROSCOPIC Stat 03/31/2025 1:54 PM CDT from Last 3 Months Results * (ABNORMAL) CBC WITH DIFFERENTIAL (03/31/2025 2:00 PM CDT) WBC 10.5 4.5 - 11.0 K/uL 03/31/2025 2:17 PM CDT [facility] RBC 4.99 4.20 - 5.40 M/uL 03/31/2025 2:17 PM CDT [facility] HEMOGLOBIN 14.5 12.0 - 16.0 g/dL 03/31/2025 2:17 PM CDT [facility] HEMATOCRIT 42.3 36.0 - 46.0 % 03/31/2025 2:17 PM CDT [facility] MCV 84.8 84.0 - 103.0 fL 03/31/2025 2:17 PM [facility] [employer] [facility] MCH 29.1 27.0 - 34.0 pg 03/31/2025 2:17 PM [facility] [employer] [facility] MCHC 34.3 30.0 - 35.0 g/dL 03/31/2025 2:17 PM [facility] [employer] [facility] PLATELETS 285 140 - 440 K/uL 03/31/2025 2:17 PM [facility] [employer] [facility] MPV 10.0 8.9 - 12.8 fL 03/31/2025 2:17 PM [facility] [employer] [facility] RDW 13.5 11.0 - 14.5 % 03/31/2025 2:17 PM [facility] [employer] [facility] RDW-STDEV 41.7 37.0 - 54.0 fL 03/31/2025 2:17 PM [facility] [employer] [facility] NEUTROPHILS 55 42 - 75 % 03/31/2025 2:17 PM [facility] [employer] [facility] LYMPHOCYTES 34 24 - 44 % 03/31/2025 2:17 PM [facility] [employer] [facility] MONOCYTES 7 2 - 10 % 03/31/2025 2:17 PM [facility] [employer] [facility] EOSINOPHILS 3 0 - 7 % 03/31/2025 2:17 PM [facility] [employer] [facility] BASOPHILS 1 0 - 1 % 03/31/2025 2:17 PM [facility] [employer] [facility] IMMATURE GRANULOCYTES 0 0 - 2 % 03/31/2025 2:17 PM [facility] [employer] [facility] NEUTROPHIL ABSOLUTE 5.74 2.00 - 8.00 K/uL 03/31/2025 2:17 PM [facility] [employer] [facility] LYMPHOCYTE ABSOLUTE 3.52 1.20 - 4.00 K/uL 03/31/2025 2:17 PM [facility] [employer] [facility] MONOCYTE ABSOLUTE 0.78(H) 0.10 - 0.60 K/uL 03/31/2025 2:17 PM [facility] [employer] [facility] EOSINOPHIL ABSOLUTE 0.36 0.00 - 0.70 K/uL 03/31/2025 2:17 PM CDT [facility] BASOPHILS ABSOLUTE 0.06 0.00 - 0.20 K/uL 03/31/2025 2:17 PM CDT [facility] IMMATURE GRANULOCYTES ABSOLUTE 0.03 0.00 - 0.10 K/uL 03/31/2025 2:17 PM CDT [facility] SMEAR REVIEWED: NA - Not Applicable 03/31/2025 2:17 PM CDT [facility] Blood Venipuncture / Unknown 03/31/2025 2:00 PM CDT 03/31/2025 2:10 PM CDT Oneal Cobb NP HEMATOLOGY ORDERABLES Final Re sult [facility] CLIA # [id number] [address] [place] [id number] * COMPREHENSIVE METABOLIC PANEL (03/31/2025 2:00 PM CDT) SODIUM 139 136 - 145 mmol/L 03/31/2025 2:44 PM CDT [facility] POTASSIUM 4.0 3.5 - 5.1 mmol/L 03/31/2025 2:44 PM CDT [facility] CHLORIDE 102 98 - 107 mmol/L 03/31/2025 2:44 PM CDT [facility] CO2 23 22 - 29 mmol/L 03/31/2025 2:44 PM CDT [facility] CALCIUM 9.6 8.6 - 10.0 mg/dL 03/31/2025 2:44 PM CDT [facility] BUN 10 6 - 20 mg/dL 03/31/2025 2:44 PM CDT [facility] CREATININE 0.63 0.51 - 0.95 mg/dL 03/31/2025 2:44 PM CDT [facility] GLUCOSE 94 74 - 99 mg/dL 03/31/2025 2:44 PM CDT [facility] TOTAL PROTEIN 7.6 6.4 - 8.3 g/dL 03/31/2025 2:44 PM CDT [facility] ALBUMIN 4.2 3.5 - 5.2 g/dL 03/31/2025 2:44 PM CDT [facility] BILIRUBIN TOTAL 0.4 0.0 - 1.0 mg/dL 03/31/2025 2:44 PM CDT [facility] ALKALINE PHOSPHATASE 102 35 - 104 U/L 03/31/2025 2:44 PM CDT [facility] AST 21 10 - 35 U/L 03/31/2025 2:44 PM CDT [facility] ALT 22 <=35 U/L 03/31/2025 2:44 PM CDT [facility] GFR >60 >=60 mL/min/1.7 3 sq meter 03/31/2025 2:44 PM CDT [facility] Comment:eGFR calculated with 2020 CKD-EPI equation. Vegetarian diet, extremely high or low muscle mass, and may affect results. Cystatin C with Glomerular Filtration Rate is a suitable alternative for these patients. ANION GAP 14 9 - 20 mmol/L 03/31/2025 2:44 PM CDT [facility] Blood Venipuncture / Unknown 03/31/2025 2:00 PM CDT 03/31/2025 2:10 PM CDT Oneal Cobb NP CHEMISTRY ORDERABLES Final Res ult [facility] CLIA # [id number] [address] [place] [id number] * EXTRA TUBE (URINE BRITT) (03/31/2025 1:54 PM CDT) Urine URINE SPECIMEN OBTAINED BY CLEAN CATCH PROCEDURE / Unknown Collection / Unknown 03/31/2025 1:54 PM CDT 03/31/2025 2:06 PM CDT Oneal Reza ELECTRICAL REPAIRER URINE ORDERABLES Final Result [facility] CLIA # [id number] [facility] [address] [place] [address] * URINALYSIS WITH REFLEX MICROSCOPIC (03/31/2025 1:54 PM CDT) COLOR UA Pale Yellow Pale to Dark Yellow 03/31/2025 2:12 PM CDT [facility] CLARITY UA Clear Clear 03/31/2025 2:12 PM CDT [facility] SPECIFIC GRAVITY UA 1.010 1.003 - 1.035 03/31/2025 2:12 PM CDT [facility] PH UA 7.5 5.0 - 8.0 03/31/2025 2:12 PM CDT [facility] LEUKOCYTE ESTERASE UA Negative Negative 03/31/2025 2:12 PM CDT [facility] NITRITE UA Negative Negative 03/31/2025 2:12 PM CDT [facility] PROTEIN UA Negative Negative 03/31/2025 2:12 PM CDT [facility] GLUCOSE UA Negative Negative 03/31/2025 2:12 PM CDT [facility] KETONES UA Negative Negative 03/31/2025 2:12 PM CDT [facility] UROBILINOGEN UA <2.0 <2.0 mg/dL 2:12 PM CDT [facility] BILIRUBIN UA Negative Negative 03/31/2025 2:12 PM CDT [facility] BLOOD UA Negative Negative 03/31/2025 2:12 PM CDT [facility] Urine URINE SPECIMEN OBTAINED BY CLEAN CATCH PROCEDURE / Unknown Collection / Unknown 03/31/2025 1:54 PM CDT 03/31/2025 2:06 PM CDT Oneal Cobb ELECTRICAL REPAIRER URINE ORDERABLES Final Result [facility] CLIA # [id number] [address] [facility] [place] [address] from Last 3 Months Insurance [place] [facility] [facility] MEDICAID RX INFOCROSSING Medicaid Advance Directives For more information, please contact: [phone] * Full Code (Latest Code Status on File) Date Activated Date Inactivated Comments 08/31/2023 12:21 PM 09/01/2023 5:45 PM Care Teams Director Enterprise Sales Relationship Specialty Start Date End Date Elver Jimenez DO [address] [place] [address] PCP - General Family Practice 04/16/23
--- OUTSIDE RECORDS SUMMARY | 2025-04-03 14:44 | XMS_ITS | Clinical Summary ---
Author Organization [facility] Address [address] [address] Care Team Providers Care Pheresis Specialist Name Role Phone Shereen Garland DO Primary [...] obesity with body mass index of 40.0-49.9 Take 1 Capsule by mouth daily before [...] on file Legal Sex Female 11:04 AM MANAGER OF DRILLING Gender Identity Not on file Sexual Orientation [...] CDT Respiratory Rate 18 07/06/2020 3:07 PM MANAGER OF DRILLING Oxygen Saturation 97% 10/17/2020 3:36 PM CDT [...] Medicaid 04/17/202404/16, 06/28/2014 INFLUENZA VACCINE (#1) 2025 05/18/2014 HPV/Cotest (30-65) 2025 06/28/2014, 09/02/2012 HPV VACCINES Completed 2010, 04/07, 02/13/2010 Procedures Procedure Name Priority Date/Time Associated Diagnosis Comments CERV/VAG CYTOPATH, THIN PREP IMAGR RFLX HPV Routine 06/28/2014 1:39 PM MANAGER OF DRILLING from Last 3 Months or Most Recently Relevant to Health Maintenance Results * CERV/VAG CYTOPATH, THIN PREP IMAGR RFLX HPV (06/28/2014 1:39 PM MANAGER OF DRILLING) SIGNAL FITTER CYTOLOGY REPORT REFLEX HPV [facility] Anatomic Pathology Dept [address] [place], [place] [address] [address] Patient: NAVIN MATAMOROS Accn No: [id number] , [id number] Collected: 06/28/2014 1:39:00 PM All cases except those with a DP prefix are performed by pathologists from [facility] at [facility]. Case type DP is performed by Dr. Juanjo Marcelino, [facility], [facility] [address], [address] [address] (CLIA #[id number]) (Ph. [phone]). SIGNAL FITTER PAP - REFLEX HPV History Specimen Type: Endocervical LMP: 12-16-14 Previous Pap History: 2012 Specimen Adequacy Satisfactory for interpretation. The smear shows sufficient numbers of endocervical or metaplastic cells. Diagnosis EPITHELIAL CELL ABNORMALITIES. Atypical squamous cells of undetermined significance (ASC-US). Potato Chip Fryer/ LUIS PEÑA Pathologist: 07/12/14 Completed by: Ramy [...] treating physician in consultation with his/her patient. [facility] [employer] [facility] 06/28/2014 1:39 PM MANAGER OF DRILLING us Mandy Mcdermott WELT POCKET MACHINE OPERATOR PATHOLOGY/CYTOLOGY ORDERABLES Final Result [facility] [employer] [facility] CLIA# [id number] [facility] [place] [address] from Last 3 Months or Most Recently Relevant to Health Maintenance Insurance [facility] Care Teams Pheresis Specialist Relationship Specialty Start Date End Date Shereen Garland DO [address] [facility] [place] [address] PCP - General Family Practice 05/25/13
--- OUTSIDE RECORDS SUMMARY | 2025-04-03 14:44 | XMS_ITS | Encounter Summary ---
Author Organization [facility] Address [address] [facility] [address] Dr[address] 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
[2025-04-03 14:49] VITALS: BP 125/86; PULSE 84; RESP 17; TEMP 36.6; O2SAT 97; BMI 49.4
--- NOTE | 2025-04-03 14:57 | W.ED.ABDPA2 ---
HPI - Abdominal Pain General: Chief Complaint: Abdominal Pain Stated Complaint: Lower back pain vision blury confused Time Seen by Provider: 04/03/25 14:57 Related Data Home Medications ?Medication ?Instructions ?Recorded ?Confirmed acetaminophen 325 mg tablet 650 mg PO QID PRN Pain 08/23/23 06/18/24 buspirone 5 mg tablet 5 mg PO TID 05/12/24 06/18/24 Previous Rx's ?Medication ?Instructions ?Recorded levonorgestrel (Mirena) 1 device intrauterine .every 5 06/29/20 years #1 ea hydrocodone 5 mg-acetaminophen 325 1 tab PO Q6H PRN pain #14 tabs 08/23/23 mg tablet famotidine 40 mg tablet 40 mg PO DAILY #7 tabs 12/12/23 diclofenac sodium 75 mg 75 mg PO Q12H PRN pain #20 tabs 02/06/25 tablet,delayed release hydrocodone 7.5 mg-acetaminophen 1 tab PO Q8H PRN pain #14 tabs 02/06/25 325 mg tablet promethazine 25 mg tablet 25 mg PO Q6H PRN nausea and 02/06/25 vomiting #20 tabs Allergies Allergy/AdvReac Type Severity Reaction Status Date / Time adhesive Allergy ALGY-Rash Verified 02/06/25 16:47 guaifenesin (From Mucinex) Allergy ALGY-Hives Verified 02/06/25 16:47 [facility] ED PFS: Medical History (Updated 02/14/25 @ 00:00 by DANYELL John) No pertinent past medical history Denies history of: Denies diabetes, asthma, seizures,bleeding or clotting disorders, DVT/PE, genital herpes PCP: THERESE Gonzalez History of hypertension She states that she has had high blood pressure that developed after the of her last child. Review of records shows 1 elevated blood pressure when patient came in for evaluation of depression however all other blood pressures were within normal limits. States she was on medication for one month after delivery but nothing since then. She denies following up with after delivery. in 2018 she did not have issues with HTN. PCOS (polycystic ovarian syndrome) Gives history of PCOS-does not remember details. Now has been having irregular cycles. Surgical History History of laparoscopy 02/19/2015--performed by Dr. Gonzalez De La Torre at [facility] for a cyst in her ovary History of tonsillectomy (~2008) 2009 History of 01/23/2016---primary low transverse section. Performed by Dr. Almonte at [facility] in [place], [place]. Delivery for arrest of dilation at 8 cm and arrest of descent at -1 station. Family History Mother Hypertension Cervical cancer, Onset Age: 30 questionable if cancer; most likely precancer Father Hypertension Grandmother Hypertension Paternal Maternal Stroke Paternal grandmother Breast cancer, Onset Age: 50 Paternal grandmother Grandfather Hypertension Paternal Maternal Brother Stroke Family/Other Uterine cancer Maternal Aunt Denies family history of Colon cancer Ovarian cancer Diabetes Heart disease Hyperlipidemia Family history of thyroid problem Social History Smoking and tobacco/nicotine status: current every day tobacco/nicotine user cigarettes [ Other cigarette details: 4-6 cigarettes/day] Alcohol intake: unknown Substance/Drug Use: never Additional social history: - Course Vital Signs: Vital signs: Vital Signs Temperature 97.9 F 04/03/25 14:49 Pulse Rate 84 04/03/25 14:49 Respiratory Rate 17 04/03/25 14:49 Blood Pressure 125/86 04/03/25 14:49 Pulse Oximetry 97 04/03/25 14:49 Oxygen Delivery Me thod Room Air 04/03/25 14:49 Discharge Plan Discharge Condition: Stable Prescriptions: No Action Mirena 20 mcg/24 hours (6 yrs) 52 mg intrauterine device 1 device intrauterine .every 5 years Qty: 1 0RF buspirone 5 mg tablet 5 mg PO TID famotidine 40 mg tablet 40 mg PO DAILY Qty: 7 0RF diclofenac sodium 75 mg tablet,delayed release (DR/EC) 75 mg PO Q12H PRN (Reason: pain) Qty: 20 0RF hydrocodone-acetaminophen 7.5-325 mg tablet 1 tab PO Q8H PRN (Reason: pain) Qty: 14 0RF promethazine 25 mg tablet 25 mg PO Q6H PRN (Reason: nausea and vomiting) Qty: 20 0RF acetaminophen 325 mg Tablet 650 mg PO QID PRN (Reason: Pain) hydrocodone-acetaminophen 5-325 mg tablet 1 tab PO Q6H PRN (Reason: pain) Qty: 14 0RF Referrals: Dinah Sanches DO [Primary Care Provider, TRAFFIC LAW ATTORNEY] Print Language: Citizen Of [place] Coding Level of Care Code 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
[2025-04-03 15:00] LABS: Glucose Urine UA Negative (Normal); Nitrate Urine Negative (Negative); Specific Gravity, Urine 1.011 (1.005-1.030)
[2025-04-03 15:00] LABS: Hematocrit 40.0 % (36-47); Hemoglobin 13.50 g/dL (11.27-16.99); Mean Corpuscular HGB Conc 33.8 g/dL (30-55); Mean Corpuscular Hemoglobin 29.4 pg (27-33); Mean Corpuscular Volume 87.1 fl (85-98); Nucleated Red Blood Cells % 0 %; Platelet Count 273 10^3/cmm (157-399); Red Blood Count 4.59 10^6/uL (3.85-5.65); White Blood Count 11.63 10^3/uL (3.29-11.43)
[2025-04-03 15:08] LABS: Add Urine Microscopic? YES
[2025-04-03 15:14] LABS: HCG, Serum Qual Negative (Negative)
[2025-04-03 15:23] LABS: Alanine Aminotransferase 18 U/L (0-33); Albumin Level 4.1 g/dL (3.5-5.2); Alkaline Phosphatase 97 U/L (35-105); Anion Gap 14.8 (5-19); Aspartate Amino Transferase 17 U/L (0-32); Blood Urea Nitrogen 13 mg/dL (6-20); Calcium 9.5 mg/dL (8.5-10.5); Carbon Dioxide 26 mmol/L (22-29); Chloride 101 mmol/L (98-107); Creatinine Clr Calc Pharmacy 159.2606; Globulin 3.1 g/dL (1.3-4.6); Glucose 112 mg/dL (65-115); Osmolality Calculated 287 mOsm/kg (285-295); Potassium 3.8 mmol/L (3.5-5.1); Sodium 138 mmol/L (136-145); Total Protein 7.2 g/dL (6.6-8.7)
--- NOTE | 2025-04-03 15:27 | CTR_ITS ---
PROCEDURE INFORMATION: Exam: CT Lumbar Spine Without Contrast Exam date and time: 04/03/2025 3:38 PM Age: 29 years old Clinical indication: Low back pain; Additional info: Back pain, leg numbness, trouble ambulating TECHNIQUE: Imaging protocol: Computed tomography of the lumbar spine without contrast. Radiation optimization: All CT scans at this facility use at least one of these dose optimization techniques: automated exposure control; mA and/or kV adjustment per patient size (includes targeted exams where dose is matched to clinical indication); or iterative reconstruction. COMPARISON: CT abdomen pelvis w con* [id number] 12/12/2024 8:43 PM RADIATION DOSE METRICS: Total DLP (mGy-cm): 1398.3 FINDINGS: Bones/joints: Fractures of the bilateral facets at L5. Grade 1 posterior listhesis of L4 on L5. No bony encroachment on the neural foramina. Mild degenerative disc disease at L4-L5 and L5-S1. Sclerotic changes along the medial aspect of the right SI joint to a lesser extent the left SI joint with no bony erosion of the SI joint. Soft tissues: Unremarkable. CT/CT lumbar spine wo con* [id number] IMPRESSION: 1. Fractures of the bilateral facets at L5. 2. Grade 1 posterior listhesis of L4 on L5. 3. No bony encroachment on the neural foramina. 4. Mild degenerative disc disease at L4-L5 and L5-S1.
--- NOTE | 2025-04-03 15:28 | W.ED.GENADLT ---
HPI - General Adult General: Chief complaint: Abdominal Pain Stated complaint: Lower back pain vision blury confused Time Seen by Provider: 04/03/25 14:57 Source: patient Mode of arrival: ambulatory Limitations: no limitations History of Present Illness: Patient is a 29-year-old female with a history of PCOS and endometriosis here for medical evaluation. She starts by telling me she is having back, abdominal pain, rib pain but then tells me this is normal for her with her PCOS/endometriosis. She states she was seen at an emergency department in [place] and had blood work performed which was reportedly normal. She states she was discharged home with anti-inflammatories, steroids, muscle relaxers. Patient states she schedule an appointment with her primary care provider on . She states she is here today mainly complaining of the back pain. She now feels like this radiates into her hips. She has had similar symptoms looking at previous documentation back in December when she was seen here. She is today complaining of lightheadedness-this complaint was also present on December's visit as well. She feels like her head is not connected to my body . She has not had any recent injury or trauma. No UTI-like symptoms. She is not having any flank pain. No fevers. She does feel like she has trouble ambulating on her legs but does not describe any sensations of weakness or loss of sensation. She is not having any saddle anesthesia. No bowel or bladder incontinence/retention. She also feels like she is having trouble gripping things with her hands. She does not feel like her arms or hands are weak. She feels like sensation is normal-states I don't know why they don't work . She is not complaining of any neck pain. No headache. Onset (ago): day(s) Location: head, back, abdomen, upper extremity and lower extremity Severity: mild Relieving factors: none Exacerbating factors: none Associated symptoms: Reports nausea; Deny chest pain, confusion, dyspnea, headache(s), malaise, rash, palpitations, syncope or vomiting Treatments prior to arrival: none Related Data Home Medications ?Medication ?Instructions ?Recorded ?Confirmed acetaminophen 325 mg tablet 650 mg PO QID PRN Pain 08/23/23 04/03/25 L.acidophilus-L.plantarum-L.rhamnosus 8,000 cap PO DAILY 04/03/25 04/03/25 1 billion cell capsule,delay rel (Probiotic Pearls Women's) buspirone 10 mg tablet 10 mg PO TID 04/03/25 04/03/25 lamotrigine 100 mg tablet See Rx Instructions .Route .COMPLEX 04/03/25 04/03/25 lamotrigine 25 mg tablet See Rx Instructions .Route .COMPLEX 04/03/25 04/03/25 methocarbamol 500 mg tablet See Rx Instructions .Route .COMPLEX 04/03/25 04/03/25 multivitamin 3 tab PO QAM 04/03/25 04/03/25 tirzepatide (weight loss) 10 10 mg SUBCUT Q7D 04/03/25 04/03/25 mg/0.5 mL subcutaneous pen injector (Zepbound) Previous Rx's ?Medication ?Instructions ?Recorded levonorgestrel (Mirena) 1 device intrauterine .every 5 06/29/20 years #1 ea hydrocodone 5 mg-acetaminophen 325 1 tab PO Q6H PRN pain #14 tabs 08/23/23 mg tablet Allergies Allergy/AdvReac Type Severity Reaction Status Date / Time adhesive Allergy ALGY-Rash Verified 02/06/25 16:47 guaifenesin (From Mucinex) Allergy ALGY-Hives Verified 02/06/25 16:47 Review of Systems Const: Denies: fever(s), chills, body aches, change in appetite, fatigue or malaise Eyes: Denies: change in vision, blurry vision, photophobia, floaters or seeing flashes Card: Denies: chest pain, palpitations, irregular heart rhythm, lightheadedness, syncope or dyspnea on exertion Resp: Denies: dyspnea, productive cough or pain on inspiration GI: Reports: abdominal pain (chronic) and nausea; Denies: vomiting, heartburn, diarrhea or change in bowel habits : Denies: flank pain, difficulty voiding, dysuria, urinary frequency, urinary urgency or urinary hesitancy Musc: Reports: back pain and joint pain (hip pain); Denies: neck pain, extremity pain, extremity swelling, joint swelling, joint redness or joint warmth Skin/Breast: Denies: rash Neuro: Reports: dizziness; Denies: headache(s), numbness in extremities, sensory changes, lack of coordination, frequent falls, confusion, behavioral changes, Slurred speech present, difficulty communicating thoughts or seizure-like activity PFS ED PFSH: Medical History No pertinent past medical history Denies history of: Denies diabetes, asthma, seizures,bleeding or clotting disorders, DVT/PE, genital herpes PCP: THERESE Gonzalez History of hypertension She states that she has had high blood pressure that developed after the of her last child. Review of records shows 1 elevated blood pressure when patient came in for evaluation of depression however all other blood pressures were within normal limits. States she was on medication for one month after delivery but nothing since then. She denies following up with after delivery. in 2018 she did not have issues with HTN. PCOS (polycystic ovarian syndrome) Gives history of PCOS-does not remember details. Now has been having irregular cycles. Surgical History History of laparoscopy 02/19/2015--performed by Dr. Gonzalez De La Torre at [facility] for a cyst in her ovary History of tonsillectomy (~2008) 2008 History of 01/23/2016---primary low transverse section. Performed by Dr. Almonte at [facility] in [place], [place]. Delivery for arrest of dilation at 8 cm and arrest of descent at -1 station. Family History Mother Hypertension Cervical cancer, Onset Age: 30 questionable if cancer; most likely precancer Father Hypertension Grandmother Hypertension Paternal Maternal Stroke Paternal grandmother Breast cancer, Onset Age: 50 Paternal grandmother Grandfather Hypertension Paternal Maternal Brother Stroke Family/Other Uterine cancer Maternal Aunt Denies family history of Colon cancer Ovarian cancer Diabetes Heart disease Hyperlipidemia Family history of thyroid problem Social History Smoking and tobacco/nicotine status: current every day tobacco/nicotine user cigarettes [ Other cigarette details: 4-6 cigarettes/day] Alcohol intake: unknown Substance/Drug Use: never Additional social history: - Physical Exam Const: COMMON NORMALS: no acute distress, patient oriented x3, no limitations, alert and well nourished GENERAL APPEARANCE: cooperative NUTRITIONAL APPEARANCE: obese morbidly obese (BMI 49.4) ORIENTATION/CONSCIOUSNESS: Yes awake, Yes oriented to person, Yes oriented to place and Yes oriented to time HENMT: COMMON NORMALS: normocephalic and atraumatic HEAD & SCALP: normal to inspection, normocephalic and atraumatic FACE & SINUS: normal facial exam and face symmetric Eye: COMMON NORMALS: Equal, round and reactive pupils present and EOMs intact bilaterally GENERAL EYE: appearance normal, both eyes and all related structures and normal light reflex PUPIL: Yes Equal, round and reactive pupils present DIRECT OPHTHALMOSCOPY: Yes normal light reflex OTHER: no nystagmus Neck/C-Spine: COMMON NORMALS: full ROM, no lymphadenopathy, supple and no meningeal signs GENERAL: Yes normal visual inspection Chest: COMMONS NORMALS: normal inspection of the chest Resp: COMMON NORMALS: normal respiratory effort and clear to auscultation bilaterally AUSCULTATION: clear to auscultation bilaterally Cardio: COMMON NORMALS: regular rate and regular rhythm RATE: regular rate RHYTHM: regular rhythm GI: COMMON NORMALS: Normal to inspection, nondistended, normoactive bowel sounds present, Soft to palpation, No hepatosplenomegaly present and no masses INSPECTION: Yes normal to inspection AUSCULTATION: Yes normoactive bowel sounds PALPATION: Yes Soft to palpation, Yes Tenderness to palpation present (GI) (across lower abdomen-states this is chronic and as baseline), No Guarding due to palpation present (GI), No Rigid due to palpation and Yes No hepatosplenomegaly present : COMMON NORMALS: Yes no CVA tenderness BLADDER/KIDNEY EXAM: Yes no CVA tenderness Back/Pelvis: COMMON NORMALS: no CVA tenderness, thoracic and lumbar spine normal to inspection, thoraco-lumbar ROM normal and straight leg raise negative bilaterally LUMBAR SPINE/LOWER BACK: Yes straight leg raise negative bilaterally PELVIS: Yes buttocks normal and No sciatic notch tenderness SACROILIAC JOINTS: Yes SI joint(s) abnormal SI joint details: tender to palpation SACRUM: no tenderness COCCYX: no tenderness OTHER: states her whole spine feels sore but most of pain located to lower back and SI joints Extremity: COMMON NORMALS: normal to inspection, full ROM, capillary refill normal, no joint enlargement, no clubbing, cyanosis or edema, no calf tenderness and no pedal edema GENERAL: Yes normal exam except as noted RIGHT LOWER EXTREMITY: Yes hip joint LEFT LOWER EXTREMITY: Yes hip joint OTHER: reports contralateral hip pains with ROM of both L and R hips; full ROM-no redness strength to bilateral LEs 5/5 without sensation changes; distal pulses/cap refills are normal Neuro: KARTIK COMA SCALE: document GCS findings [place] coma scale eye opening: Spontaneous Kartik coma scale verbal response: Orientated Kartik coma scale motor response: Obey commands Kartik coma scale total score: 15 COMMON NORMALS: patient oriented x3, moves all extremities, no focal motor deficits and no sensory deficits noted SENSORIUM/ORIENTATION: Yes alert, Yes oriented to person, Yes oriented to place and Yes oriented to time MENINGEAL SIGNS: Yes no meningeal signs COORDINATION/BALANCE: [id number] test normal SPEECH: speech normal MOTOR EXAM: 5/5 motor strength present throughout COORDINATION: [id number] test normal Skin: COMMON NORMALS: no rashes or lesions noted GENERAL SKIN EXAM: no rashes or lesions noted Course Vital Signs: Vital signs: Vital Signs Temperature 97.9 F 04/03/25 14:49 Pulse Rate 72 04/03/25 18:07 Respiratory Rate 18 04/03/25 18:07 Blood Pressure 143/83 04/03/25 18:07 Pulse Oximetry 99 04/03/25 18:07 Oxygen Delivery Me thod Room Air 04/03/25 14:49 MDM - General Adult Medical Decision Making Patient clinically appears in no acute distress. Her vital signs are stable. Blood work is nonactionable. Her UA is clear. She has no acute neurologic deficits on physical exam. CT scan of her lumbar spine obtained showing fractures of the bilateral facets at L5 as well as posterior listhesis of L4 on L5. Certainly this could be causing some of her symptoms. Discussed referral with Dr. Lomas however she states she will follow-up with Dr. Sanches on and obtain referral to [place] if necessary. Patient is stable for discharge from the emergency department. Return to ED precautions discussed. Medical Records I reviewed the patient's medical records. Lab Data I reviewed the patient's lab results. 04/03/25 14:56 04/03/25 14:56 Radiology Impressions Lumbar Spine CT 04/03/25 15:27 IMPRESSION: 1. Fractures of the bilateral facets at L5. 2. Grade 1 posterior listhesis of L4 on L5. 3. No bony encroachment on the neural foramina. 4. Mild degenerative disc disease at L4-L5 and L5-S1. Laboratory Results WBC 11.63 10^3/uL (3.29-11.43) H 04/03/25 14:56 RBC 4.59 10^6/uL (3.85-5.65) 04/03/25 14:56 Hgb 13.50 g/dL (11.27-16.99) 04/03/25 14:56 Hct 40.0 % (36-47) 04/03/25 14:56 MCV 87.1 fl (85-98) 04/03/25 14:56 MCH 29.4 pg (27-33) 04/03/25 14:56 MCHC 33.8 g/dL (30-55) 04/03/25 14:56 RDW 13.3 % (12.1-15.1) 04/03/25 14:56 Plt Count 273 10^3/cmm (157-399) 04/03/25 14:56 MPV 10.1 fL (7.4-10.4) 04/03/25 14:56 Neut % (Auto) 58.1 % 04/03/25 14:56 Lymph % (Auto) 33.6 % 04/03/25 14:56 [place]field % (Auto) 5.1 % 04/03/25 14:56 Eos % (Auto) 2.4 % 04/03/25 14:56 Baso % (Auto) 0.5 % 04/03/25 14:56 Neut # (Auto) 6.75 10^3/uL (1.8-7.7) 04/03/25 14:56 Lymph # (Auto) 3.9 10^3/uL (0.8-4.8) 04/03/25 14:56 [place]field # (Auto) 0.6 10^3/uL (0.2-0.9) 04/03/25 14:56 Eos # (Auto) 0.3 10^3/uL (0.0-0.8) 04/03/25 14:56 Baso # (Auto) 0.1 10^3/uL (0.0-0.1) 04/03/25 14:56 Nucleated RBC % (auto) 0 % 04/03/25 14:56 Nucleated RBCs # 0.0 /100WBC 04/03/25 14:56 Sodium 138 mmol/L (136-145) 04/03/25 14:56 Potassium 3.8 mmol/L (3.5-5.1) 04/03/25 14:56 Chloride 101 mmol/L (98-107) 04/03/25 14:56 Carbon Dioxide 26 mmol/L (22-29) 04/03/25 14:56 Anion Gap 14.8 (5-19) 04/03/25 14:56 BUN 13 mg/dL (6-20) 04/03/25 14:56 Creatinine 0.7 mg/dL (0.5-0.9) 04/03/25 14:56 GFR Calculation 98.9 mL/min (90-130) 04/03/25 14:56 Glucose 112 mg/dL (65-115) 04/03/25 14:56 Calculated Osmolality 287 mOsm/kg (285-295) 04/03/25 14:56 Calcium 9.5 mg/dL (8.5-10.5) 04/03/25 14:56 Total Bilirubin 0.4 mg/dL (0.15-1.2) 04/03/25 14:56 AST 17 U/L (0-32) 04/03/25 14:56 ALT 18 U/L (0-33) 04/03/25 14:56 Alkaline Phosphatase 97 U/L (35-105) 04/03/25 14:56 Total Protein 7.2 g/dL (6.6-8.7) 04/03/25 14:56 Albumin 4.1 g/dL (3.5-5.2) 04/03/25 14:56 Globulin 3.1 g/dL (1.3-4.6) 04/03/25 14:56 HCG, Qual Negative (Negative) 04/03/25 14:56 Urine Color Yellow (Yellow) 04/03/25 14:54 Urine Appearance Clear (CLEAR) 04/03/25 14:54 Urine pH 5.5 (5-7) 04/03/25 14:54 Ur Specific [place] 1.011 (1.005-1.030) 04/03/25 14:54 Urine Protein Negative (Negative) 04/03/25 14:54 Urine Glucose (UA) Negative (Normal) 04/03/25 14:54 Urine Ketones Negative (Negative) 04/03/25 14:54 Urine Blood Negative (Negative) 04/03/25 14:54 Urine Nitrate Negative (Negative) 04/03/25 14:54 Urine Bilirubin Negative (Negative) 04/03/25 14:54 Urine Urobilinogen 0.2 mg/dL (Negative) 04/03/25 14:54 Ur Leukocyte Esterase Negative (Negative) 04/03/25 14:54 Urine RBC 0-2 /hpf (0-2) 04/03/25 14:54 Urine WBC 0-5 /hpf (0-5) 04/03/25 14:54 Ur Squamous Epith Cells 0-5 /hpf (0-5) 04/03/25 14:54 Amorphous Sediment Not Reportable 04/03/25 14:54 Urine Bacteria None seen /hpf (NONE) 04/03/25 14:54 Hyaline Casts 0-4 /lpf H 04/03/25 14:54 All radiology interpretation(s) finalized by discharge Discharge Plan Discharge Patient Disposition: Home Clinical Impression: Closed L5 vertebral fracture Qualifiers: Encounter type: initial encounter Fracture morphology: unspecified fracture morphology Qualified Code(s): S32.059A - Unspecified fracture of fifth lumbar vertebra, initial encounter for closed fracture Condition: Stable Prescriptions: No Action Mirena 20 mcg/24 hours (6 yrs) 52 mg intrauterine device 1 device intrauterine .every 5 years Qty: 1 0RF acetaminophen 325 mg Tablet 650 mg PO QID PRN (Reason: Pain) hydrocodone-acetaminophen 5-325 mg tablet 1 tab PO Q6H PRN (Reason: pain) Qty: 14 0RF multivitamin [Hair,Nails and Skin Vitamin] Tablet 3 tab PO QAM methocarbamol 500 mg tablet See Rx Instructions .ROUTE .COMPLEX Rx Instructions: TAKE 1 TO 2 TABLETS BY MOUTH THREE TIMES DAILY lamotrigine 25 mg tablet See Rx Instructions .ROUTE .COMPLEX Rx Instructions: TAKE 1 TABLET BY MOUTH AT BEDTIME FOR TWO WEEKS, THEN INCREASE TO 2 TABLETS AT BEDTIME FOR 2 WEEKS buspirone 10 mg tablet 10 mg PO TID lamotrigine 100 mg tablet See Rx Instructions .ROUTE .COMPLEX Rx Instructions: TAKE 1 TABLET BY MOUTH AT BEDTIME , START AFTER INITIAL TITRATION Probiotic Pearls Women's 1 billion cell Capsule,Delayed Release(Dr/Ec) 8,000 cap PO DAILY Zepbound 10 mg/0.5 mL pen injector 10 mg SUBCUT Q7D Discharge Orders: Discharge ED (Routine); Ordered 04/03/25 Ordered By: Юлия Whitney Referrals: Dinah Sanches DO [Primary Care Provider, [employer]] Patient Instructions: Patient Portal & [place] Instructions Activity Restrictions/Additional Instructions: As we discussed, you were provided a copy of your CT report showing fractures of the bilateral facets at L5. You stated you will have your primary care provider refer you to neurosurgery in [place]. Remainder of your blood work here was unremarkable. Print Language: Sinhala Coding Level of Care Code ED Software Tester for Uriah Singletary
[2025-04-03 16:05] VITALS: BP 123/86; PULSE 71; O2SAT 98
[2025-04-03 18:07] VITALS: BP 143/83; PULSE 72; RESP 18; O2SAT 99
[2025-04-03 18:31] VITALS: BP 129/90; PULSE 72; O2SAT 99
== END 2025-04-03 18:32 | disposition home or self-care (01) ==
PROVIDERS: Emergency Provider Physician Assistant; PCP Family Medicine
DX: S32.059A Unspecified fracture of fifth lumbar vertebra, initial encounter for closed fracture (principal); F17.210 Nicotine dependence, cigarettes, uncomplicated; X58.XXXA Exposure to other specified factors, initial encounter
CPT/HCPCS: 36415; 72131; 80053; 81001; 84703; 85025; 99284; J8597

== ENCOUNTER 2025-05-15 12:42 | Emergency (ER) | payer BC, MEDICAID, SELFPAY ==
[2025-05-15 12:47] VITALS: BP 132/82; PULSE 74; RESP 18; TEMP 36.6; O2SAT 99; BMI 47.5
--- OUTSIDE RECORDS SUMMARY | 2025-05-15 12:48 | XMS_ITS | Clinical Summary ---
Author Organization [facility] Address [address] [address] Care Team Providers Care Sap Project Manager Name Role Phone Elver Jimenez Primary Care Provider Allergies Active Allergy Reactions [...] mg by mouth 3 times daily. Active methocarbamoL (ROBAXIN) 500 mg tablet Take [...] Encounters Date Type Department Care Team Description 05/11/2025 External Device Data ST[facility] ABSTRACTION Provider, Abstract 05/10/2025 Abstract [facility] Neurosurgery [address] [place] [id number] Robyn Smith, PA 04/28/2025 External Device Data [facility] ABSTRACTION Provider, Abstract 04/27/2025 External Device Data [facility] ABSTRACTION Provider, Abstract 04/06/2025 External Device Data [facility] ABSTRACTION Provider, Abstract 04/06/2025 External Device Data [facility] ABSTRACTION Provider, Abstract 04/06/2025 External Device Data [facility] ABSTRACTION Provider, Abstract 03/31/2025 2:46 PM CDT - 03/31/2025 4:50 PM CDT Emergency [facility] Emergency Department [address] [place] [phone] Lumbar paraspinal muscle spasm (Primary Dx) Discharge [...] Used Date Smoking Tobacco: Former Cigarettes 0.5 17.9 S tarted: 2007 Smokeless Tobacco: Never Tobacco [...] AM CDT Legal Sex Female 12:09 AM LIVESTOCK SHOWMAN Gender Identity Female 04/16/2023 10:27 AM CDT [...] 139.7 kg (308 lb) 07/21/2024 7:49 AM LIVESTOCK SHOWMAN Height 162.6 cm (5' 4 ) 07/21/2024 7:49 AM LIVESTOCK SHOWMAN Body Mass Index 52.87 07/21/2024 7:49 AM LIVESTOCK SHOWMAN Plan of Treatment Health Maintenance Due Date Last Done Comments HEPATITIS B VACCINES (1 of 3 - 19+ 3-dose series) 2014 CERVICAL CANCER SCREENING 2016 HPV/Cotest (21-29) 2016 PAP SMEAR 2016 Preventative Visit-Managed Medicaid 04/17/2024 04/16/2023, 06/28/2014 INFLUENZA VACCINE (#1) 2025 2, 04/19/2017, 05/18/2014, Additional history exists DTAP/TDAP/TD VACCINES (5 - T d or Tdap) 11/22/2027 11/21/2017, 08/04/1996, 08/04/1996, Additional history exists HPV VACCINES Completed 2010, 04/07, 02/13/2010 Medical Devices Implanted Type Area Soup Mixer Device Identifier Shelf Expiration Date Model / Serial / Lot Clip Crtg Med/Lrg 1112 - [id number] Implanted:Qty: 1 on 09/01/2023 by Raimundo Herndon DO at [facility] Clip N/A: Abdomen [employer] [id number] 06/04/2028 1112 / / [id number] Procedures Procedure Name Priority Date/Time Associated Diagnosis Comments COMPREHENSIVE METABOLIC PANEL Stat 03/31/2025 2:00 PM CDT CBC WITH DIFFERENTIAL Stat 03/31/2025 2:00 PM CDT EXTRA TUBE (URINE BRITT) Stat 03/31/2025 1:54 PM CDT URINALYSIS W/REFLEX MICROSCOPIC Stat 03/31/2025 1:54 PM CDT from Last 3 Months Results * (ABNORMAL) CBC WITH DIFFERENTIAL (03/31/2025 2:00 PM CDT) Pathologist [facility] WBC 10.5 4.5 - 11.0 K/uL 03/31/2025 2:17 PM CDT [facility] RBC 4.99 4.20 - 5.40 M/uL 03/31/2025 2:17 PM [facility] HEMOGLOBIN 14.5 12.0 - 16.0 g/dL 03/31/2025 2:17 PM [facility] HEMATOCRIT 42.3 36.0 - 46.0 % 03/31/2025 2:17 PM [facility] MCV 84.8 84.0 - 103.0 fL 03/31/2025 2:17 PM [facility] MCH 29.1 27.0 - 34.0 pg 03/31/2025 2:17 PM [facility] MCHC 34.3 30.0 - 35.0 g/dL 03/31/2025 2:17 PM [facility] PLATELETS 285 140 - 440 K/uL 03/31/2025 2:17 PM [facility] MPV 10.0 8.9 - 12.8 fL 03/31/2025 2:17 PM [facility] RDW 13.5 11.0 - 14.5 % 03/31/2025 2:17 PM [facility] RDW-STDEV 41.7 37.0 - 54.0 fL 03/31/2025 2:17 PM [facility] NEUTROPHILS 55 42 - 75 % 03/31/2025 2:17 PM [facility] LYMPHOCYTES 34 24 - 44 % 03/31/2025 2:17 PM [facility] Remark [facility] MONOCYTES 7 2 - 10 % 03/31/2025 2:17 PM [facility] EOSINOPHILS 3 0 - 7 % 03/31/2025 2:17 PM [facility] BASOPHILS 1 0 - 1 % 03/31/2025 2:17 PM [facility] IMMATURE GRANULOCYTES 0 0 - 2 % 03/31/2025 2:17 PM [facility] NEUTROPHIL ABSOLUTE 5.74 2.00 - 8.00 K/uL 03/31/2025 2:17 PM [facility] LYMPHOCYTE ABSOLUTE 3.52 1.20 - 4.00 K/uL 03/31/2025 2:17 PM CDT [facility] MONOCYTE ABSOLUTE 0.78(H) 0.10 - 0.60 K/uL 03/31/2025 2:17 PM CDT [facility] EOSINOPHIL ABSOLUTE 0.36 0.00 - 0.70 K/uL 03/31/2025 2:17 PM CDT [facility] BASOPHILS ABSOLUTE 0.06 0.00 - 0.20 K/uL 03/31/2025 2:17 PM CDT [facility] IMMATURE GRANULOCYTES ABSOLUTE 0.03 0.00 - 0.10 K/uL 03/31/2025 2:17 PM CDT [facility] SMEAR REVIEWED: NA - Not Applicable 03/31/2025 2:17 PM CDT [facility] Blood Venipuncture / Unknown 03/31/2025 2:00 PM CDT 03/31/2025 2:10 PM CDT Oneal Cobb ELECTRICAL CONTINUITY INSPECTOR HEMATOLOGY ORDERABLES Final Re sult [facility] CLIA # [id number] [address] [place] [address] * COMPREHENSIVE METABOLIC PANEL (03/31/2025 2:00 PM CDT) SODIUM 139 136 - 145 mmol/L 03/31/2025 2:44 PM CDT [facility] POTASSIUM 4.0 3.5 - 5.1 mmol/L 03/31/2025 2:44 PM CDT [facility] CHLORIDE 102 98 - 107 mmol/L 03/31/2025 2:44 PM CDT [facility] CO2 23 22 - 29 mmol/L 03/31/2025 2:44 PM CDT [facility] CALCIUM 9.6 8.6 - 10.0 mg/dL 03/31/2025 2:44 PM CDT [facility] BUN 10 6 - 20 mg/dL 03/31/2025 2:44 PM CDT [facility] CREATININE 0.63 0.51 - 0.95 mg/dL 03/31/2025 2:44 PM CDT [facility] GLUCOSE 94 74 - 99 mg/dL 03/31/2025 2:44 PM CDT [facility] TOTAL PROTEIN 7.6 6.4 - 8.3 g/dL 03/31/2025 2:44 PM CDT [facility] ALBUMIN 4.2 3.5 - 5.2 g/dL 03/31/2025 2:44 PM CDT [facility] BILIRUBIN TOTAL 0.4 0.0 - 1.0 mg/dL 03/31/2025 2:44 PM T [facility] ALKALINE PHOSPHATASE 102 35 - 104 U/L 03/31/2025 2:44 PM T [facility] AST 21 10 - 35 U/L 03/31/2025 2:44 PM T [facility] ALT 22 <=35 U/L 03/31/2025 2:44 PM T [facility] GFR >60 >=60 mL/min/1.7 3 sq meter 03/31/2025 2:44 PM T [facility] Comment:eGFR calculated with 2020 CKD-EPI equation. Vegetarian diet, extremely high or low muscle mass, and may affect results. Cystatin C with Glomerular Filtration Rate is a suitable alternative for these patients. ANION GAP 14 9 - 20 mmol/L 03/31/2025 2:44 PM T [facility] Blood Venipuncture / Unknown 03/31/2025 2:00 PM CDT 03/31/2025 2:10 PM CDT us Oneal Cobb NP CHEMISTRY ORDERABLES Final Res ult [facility] CLIA # [id number] [address] [place] [address] * EXTRA TUBE (URINE BRITT) (03/31/2025 1:54 PM CDT) Urine URINE SPECIMEN OBTAINED BY CLEAN CATCH PROCEDURE / Unknown Collection / Unknown 03/31/2025 1:54 PM CDT 03/31/2025 2:06 PM CDT Oneal Cobb ELECTRICAL CONTINUITY INSPECTOR URINE ORDERABLES Final Result [facility] CLIA # [id number] [address] [address] [place] [address] * URINALYSIS WITH REFLEX MICROSCOPIC (03/31/2025 1:54 PM CDT) COLOR UA Pale Yellow Pale to Dark Yellow 03/31/2025 2:12 PM CDT [facility] CLARITY UA Clear Clear 03/31/2025 2:12 PM CDT [facility] SPECIFIC GRAVITY UA 1.010 1.003 - 1.035 03/31/2025 2:12 PM CDT [facility] PH UA 7.5 5.0 - 8.0 03/31/2025 2:12 PM CDT [facility] LEUKOCYTE ESTERASE UA Negative Negative 03/31/2025 2:12 PM CDT [facility] NITRITE UA Negative Negative 03/31/2025 2:12 PM CDT [facility] PROTEIN UA Negative Negative 03/31/2025 2:12 PM CDT [facility] GLUCOSE UA Negative Negative 03/31/2025 2:12 PM CDT [facility] KETONES UA Negative Negative 03/31/2025 2:12 PM CDT [facility] UROBILINOGEN UA <2.0 <2.0 mg/dL 2:12 PM CDT [facility] BILIRUBIN UA Negative Negative 03/31/2025 2:12 PM CDT [facility] BLOOD UA Negative Negative 03/31/2025 2:12 PM CDT [facility] Urine URINE SPECIMEN OBTAINED BY CLEAN CATCH PROCEDURE / Unknown Collection / Unknown 03/31/2025 1:54 PM CDT 03/31/2025 2:06 PM CDT Oneal Cobb ELECTRICAL CONTINUITY INSPECTOR URINE ORDERABLES Final Result [facility] CLIA # [id number] [address] [place] [address] [place] [address] from Last 3 Months Insurance FOR[facility]LY [facility] MEDICAID RX [id number] Medicaid Advance Directives For more information, please contact: [phone] * Full Code (Latest Code Status on File) Date Activated Date Inactivated Comments 08/31/2023 12:21 PM 09/01/2023 5:45 PM Care Teams Sap Project Manager Relationship Specialty Start Date End Date Elver Jimenez DO [address] [place] [address] PCP - General Family Practice 04/16/23
--- OUTSIDE RECORDS SUMMARY | 2025-05-15 12:48 | XMS_ITS | Encounter Summary ---
Author Organization [facility] Address [address] [place] [address] Care Team Providers Care Investment Advisor Name Role Phone Elver Jimenez DO Primary Care Provider [phone] Encounter Details Date Type Department Care Team (Late st Contact Info) Description 05/11/2025 External Device Data [facility] ABSTRACTION Provider, Abstract NO ADDRESS ON FILE Social History Tobacco Use Types Packs/Day Years Used Date Smoking Tobacco: Former Cigarettes 0.5 17.9 S tarted: 2008 Smokeless Tobacco: Never Alcohol [...] AM CDT Legal Sex Female 12:09 AM NOTARY PUBLIC Gender Identity Female 04/16/2023 10:27 AM CDT Sexual Orientation Not on file documented as of this encounter Plan of Treatment Not on file documented as of this encounter Visit Diagnoses Not on filedocumented in this encounter Additional Health Concerns Assessment Noted Time PHQ-9 Depression Total Score: 4 04/28/20 24 1:00 PM CDT documented as of this encounter Care Teams Investment Advisor Relationship Specialty Start Date End Date Elver Jimenez DO [address] [place] [address] PCP - General Family Practice 04/16/23 documented as of this encounter
--- OUTSIDE RECORDS SUMMARY | 2025-05-15 12:48 | XMS_ITS | Clinical Summary ---
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 Gender Identity Not on file Sexual Orientation [...] CDT Respiratory Rate 18 07/06/2020 3:07 PM V BLOCK SAW OPERATOR Oxygen Saturation 97% 10/17/2020 3:36 PM CDT [...] IMAGR RFLX HPV Routine 06/28/2014 1:39 PM V BLOCK SAW OPERATOR from Last 3 Months or Most Recently Relevant to Health Maintenance Results * CERV/VAG CYTOPATH, THIN PREP IMAGR RFLX HPV (06/28/2014 1:39 PM V BLOCK SAW OPERATOR) [facility] OFFICE ASST CYTOLOGY REPORT REFLEX HPV [facility] Anatomic Pathology Dept [address] [facility] [address] Patient: STACY MATAMOROS Accn No: [id number] , [id number] Collected: 06/28/2014 1:39:00 PM All cases except those with a DP prefix are performed by pathologists from [facility] at [facility]. Case type DP is performed by Dr. Juanjo Marcelino, [facility], [facility], [address], [address] [address] (CLIA #[id number]) (Ph. [phone]). OFFICE ASST PAP - REFLEX HPV History Specimen Type: Endocervical LMP: 12-16-14 Previous Pap History: 2012 Specimen Adequacy Satisfactory for interpretation. The smear shows sufficient numbers of endocervical or metaplastic cells. Diagnosis EPITHELIAL CELL ABNORMALITIES. Atypical squamous cells of undetermined significance (ASC-US). Softball Coach/ LUIS PEÑA Pathologist: 07/12/14 Completed by: Ramy [...] treating physician in consultation with his/her patient. [facility] 06/28/2014 1:39 PM V BLOCK SAW OPERATOR us Mandy SALEH PATHOLOGY/CYTOLOGY ORDERABLES Final Result [facility] CLIA# [id number] [address] [place] [address] from Last 3 Months or Most Recently Relevant to Health Maintenance Insurance [facility] Care Teams Hand Splitter Relationship Specialty Start Date End Date Shereen Garland DO [address] [address] PCP - General Family Practice 05/25/13
--- OUTSIDE RECORDS SUMMARY | 2025-05-15 12:48 | XMS_ITS | Encounter Summary ---
Author Organization [facility] Address 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
--- NOTE | 2025-05-15 13:30 | PC.NURSE ---
this nurse called poison control and spoke to a pharmacist. pharmacist stated topimax's peak is in 1 hr and half life is 21 hrs. she states main symptom is drowsiness. she states pt can be discharged home and poison control can follow up with her as needed.
[2025-05-15 13:31] VITALS: BP 118/86; PULSE 80; RESP 16; O2SAT 95
--- NOTE | 2025-05-15 14:35 | W.ED.GENADLT ---
HPI - General Adult General: Chief complaint: General Medical Stated complaint: SOB Time Seen by Provider: 05/15/25 12:57 Source: patient Mode of arrival: ambulatory Limitations: no limitations History of Present Illness: Patient is a 29-year-old female presents the emergency department after side effects from taking Topamax. She was not prescribed this, states she accidentally took her mom's Topamax, it was 100 mg and this occurred about 3 hours prior to coming in. States that systematically she feels numb and weak has facial tingling and feels short of breath. Also states she feels anxious and she thinks that this is the cause of her symptoms, she just wanted make sure nothing else was going on. Otherwise clinically stable at this time, mildly anxious appearing but states that she feels much better. Denies any current headache. MD complaint: Side effects to Topamax Onset (ago): hour(s) Associated symptoms: Reports confusion; Deny chest pain, dyspnea, headache(s), nausea, rash, palpitations or vomiting Related Data Home Medications ?Medication ?Instructions ?Recorded ?Confirmed acetaminophen 325 mg tablet 650 mg PO QID PRN Pain 08/23/23 04/03/25 L.acidophilus-L.plantarum-L.rhamnosus 8,000 cap PO DAILY 04/03/25 04/03/25 1 billion cell capsule,delay rel (Probiotic [facility] Women's) buspirone 10 mg tablet 10 mg PO TID 04/03/25 04/03/25 lamotrigine 100 mg tablet See Rx Instructions .Route .COMPLEX 04/03/25 04/03/25 lamotrigine 25 mg tablet See Rx Instructions .Route .COMPLEX 04/03/25 04/03/25 methocarbamol 500 mg tablet See Rx Instructions .Route .COMPLEX 04/03/25 04/03/25 multivitamin 3 tab PO QAM 04/03/25 04/03/25 tirzepatide (weight loss) 10 10 mg SUBCUT Q7D 04/03/25 04/03/25 mg/0.5 mL subcutaneous pen injector (Zepbound) Previous Rx's ?Medication ?Instructions ?Recorded levonorgestrel (Mirena) 1 device intrauterine .every 5 06/29/20 years #1 ea hydrocodone 5 mg-acetaminophen 325 1 tab PO Q6H PRN pain #14 tabs 02/16/24 mg tablet Allergies Allergy/AdvReac Type Severity Reaction Status Date / Time adhesive Allergy ALGY-Rash Verified 04/06/25 07:56 guaifenesin (From Mucinex) Allergy ALGY-Hives Verified 04/06/25 07:56 Review of Systems General: Reports: 10 or more systems reviewed and unremarkable except in HPI and below Const: Reports: other (Medication side effect); Denies: fever(s), chills or fatigue Eyes: Denies: change in vision ENMT: Denies: throat pain, ear or mastoid pain or nasal discharge Card: Denies: chest pain, palpitations, swelling of feet/ankles or lightheadedness Resp: Denies: dyspnea, productive cough or wheezing GI: Denies: abdominal pain, nausea, vomiting, diarrhea or constipation : Denies: flank pain, difficulty voiding, dysuria or urinary frequency Musc: Denies: neck pain, back pain or joint pain Skin/Breast: Denies: rash Neuro: Reports: numbness in extremities, weakness in extremities, sensory changes and confusion; Denies: headache(s) Psych: Reports: anxiety PFSH ED PFSH: Medical History No pertinent past medical history Denies history of: Denies diabetes, asthma, seizures,bleeding or clotting disorders, DVT/PE, genital herpes PCP: THERESE Gonzalez History of hypertension She states that she has had high blood pressure that developed after the of her last child. Review of records shows 1 elevated blood pressure when patient came in for evaluation of depression however all other blood pressures were within normal limits. States she was on medication for one month after delivery but nothing since then. She denies following up with DrGissel after delivery. in 2018 she did not have issues with HTN. PCOS (polycystic ovarian syndrome) Gives history of PCOS-does not remember details. Now has been having irregular cycles. Surgical History History of laparoscopy 02/19/2015--performed by Dr. Gonzalez De La Torre at [facility] for a cyst in her ovary History of tonsillectomy (~2008) 2008 History of 01/23/2016---primary low transverse section. Performed by Dr. Almonte at [facility] in [place], [place]. Delivery for arrest of dilation at 8 cm and arrest of descent at -1 station. Family History Mother Hypertension Cervical cancer, Onset Age: 30 questionable if cancer; most likely precancer Father Hypertension Grandmother Hypertension Paternal Maternal Stroke Paternal grandmother Breast cancer, Onset Age: 50 Paternal grandmother Grandfather Hypertension Paternal Maternal Brother Stroke Family/Other Uterine cancer Maternal Aunt Denies family history of Colon cancer Ovarian cancer Diabetes Heart disease Hyperlipidemia Family history of thyroid problem Social History Smoking and tobacco/nicotine status: current every day tobacco/nicotine user cigarettes [ Other cigarette details: 4-6 cigarettes/day] Alcohol intake: unknown Substance/Drug Use: never Additional social history: - Physical Exam Const: COMMON NORMALS: no acute distress, patient oriented x3 and no limitations GENERAL APPEARANCE: cooperative, comfortable and well developed ORIENTATION/CONSCIOUSNESS: Yes awake, Yes oriented to person, Yes oriented to place and Yes oriented to time HENMT: COMMON NORMALS: normocephalic, atraumatic and hearing grossly normal bilaterally HEAD & SCALP: normocephalic and atraumatic Eye: COMMON NORMALS: Equal, round and reactive pupils present, EOMs intact bilaterally and conjunctivae normal CONJUNCTIVA: Yes conjunctivae normal PUPIL: Yes Equal, round and reactive pupils present Neck/C-Spine: COMMON NORMALS: full ROM, supple and no JVD Resp: COMMON NORMALS: normal respiratory effort, No retractions, No use of accessory muscles and clear to auscultation bilaterally AUSCULTATION: clear to auscultation bilaterally Cardio: COMMON NORMALS: no JVD, regular rate, regular rhythm, No clicks present (Cardio), No murmurs present (Cardio) and No rub (Cardio) RATE: regular rate RHYTHM: regular rhythm Extremity: COMMON NORMALS: normal to inspection, full ROM and capillary refill normal Neuro: COMMON NORMALS: patient oriented x3, CN's II-XII intact bilaterally, moves all extremities, no focal motor deficits and no sensory deficits noted SENSORIUM/ORIENTATION: Yes oriented to person, Yes oriented to place and Yes oriented to time Psych: COMMON NORMALS: mental status grossly normal and Normal thought process present THOUGHT PROCESS: Normal thought process present Skin: COMMON NORMALS: no rashes or lesions noted GENERAL SKIN EXAM: no rashes or lesions noted Course Vital Signs: Vital signs: Vital Signs Temperature 97.8 F 05/15/25 12:47 Pulse Rate 80 05/15/25 13:31 Respiratory Rate 16 05/15/25 13:31 Blood Pressure 118/86 05/15/25 13:31 Pulse Oximetry 95 05/15/25 13:31 Oxygen Delivery Me thod Room Air 05/15/25 12:47 MDM - General Adult Medical Decision Making Patient presented after actually he can 100 mg of Topamax, this was on a prescription of hers it was her mom's and she notes that this was entirely accidental. Had stated that she felt hung over and after calling poison control they state that the half-life of the Topamax 21 hours and the symptoms that she are experiencing are to be expected and she can expect general improvement. They have no further recommendation for action at this time. Patient does note that since being in the ER she does feel much better, stating she wanted to go home and that she just wanted evaluation. Couple of Ativan will be sent home with her for breakthrough anxiety, and encouraged to return with any new or worsening. No radiology studies performed this visit Discharge Plan Discharge Patient Disposition: Home Clinical Impression: Medication adverse effect Condition: Stable Prescriptions: No Action Mirena 20 mcg/24 hours (6 yrs) 52 mg intrauterine device 1 device intrauterine .every 5 years Qty: 1 0RF acetaminophen 325 mg Tablet 650 mg PO QID PRN (Reason: Pain) hydrocodone-acetaminophen 5-325 mg tablet 1 tab PO Q6H PRN (Reason: pain) Qty: 14 0RF multivitamin [Hair,Nails and Skin Vitamin] Tablet 3 tab PO QAM methocarbamol 500 mg tablet See Rx Instructions .ROUTE .COMPLEX Rx Instructions: TAKE 1 TO 2 TABLETS BY MOUTH THREE TIMES DAILY lamotrigine 25 mg tablet See Rx Instructions .ROUTE .COMPLEX Rx Instructions: TAKE 1 TABLET BY MOUTH AT BEDTIME FOR TWO WEEKS, THEN INCREASE TO 2 TABLETS AT BEDTIME FOR 2 WEEKS buspirone 10 mg tablet 10 mg PO TID lamotrigine 100 mg tablet See Rx Instructions .ROUTE .COMPLEX Rx Instructions: TAKE 1 TABLET BY MOUTH AT BEDTIME , START AFTER INITIAL TITRATION Probiotic [facility] Women's 1 billion cell Capsule,Delayed Release(Dr/Ec) 8,000 cap PO DAILY Zepbound 10 mg/0.5 mL pen injector 10 mg SUBCUT Q7D Discharge Orders: Discharge ED (Routine); Ordered 05/15/25 Ordered By: Mp Bazan Referrals: Dinah Sanches DO [Primary Care Provider, PRIVACY ATTORNEY] Patient Instructions: Patient Portal & [place] Instructions Activity Restrictions/Additional Instructions: Topiramate Discharge Instructions You were seen today because of a reaction after taking topiramate (brand name: Topamax). You are stable and it is safe for you to go home. Please read the following instructions carefully. What is Topiramate? Topiramate is a medicine used for seizures, migraine prevention, and sometimes for weight loss. It works in the brain to help control nerve activity. Possible Side Effects Topiramate can cause side effects. The most common are: - Tingling in hands or feet (paresthesia) - Feeling tired or sleepy - Dizziness - Trouble with memory or concentration - Loss of appetite or weight loss - Changes in mood, such as feeling nervous or sad - Change in taste or dry mouth Less common but serious side effects include: - Sudden vision changes or eye pain (could be a sign of glaucoma) - Decreased sweating and high body temperature, especially in hot weather - Kidney stones (pain in your side or blood in urine) - Confusion or changes in mental status - Metabolic acidosis (can cause fast breathing, confusion, or tiredness) How Long Does Topiramate Stay in Your Body? The half-life of topiramate is about 21 hours, which means it takes about a day for half of the medicine to leave your body. Most of the medicine will be gone in about 4-5 days. What to Watch For Call your doctor or go to the emergency room if you notice: - Sudden vision changes or eye pain - Trouble breathing, confusion, or severe tiredness - Not sweating as usual, especially in hot weather - Severe stomach pain or blood in your urine - Unexplained vomiting or changes in mental status Other Important Information - Drink plenty of water to help prevent kidney stones. - Avoid driving or operating heavy machinery until you know how topiramate affects you. - If you are or planning to become , let your doctor know, as topiramate can cause defects. - Do not restart topiramate unless your doctor tells you to. If you have any questions or new symptoms, contact your healthcare provider. Print Language: Korean Coding Level of Care Code ED Field Mechanic/Site Lead for Uriah Singletary
[2025-05-15 15:00] VITALS: BP 134/85; PULSE 74; RESP 16; O2SAT 97
== END 2025-05-15 14:59 | disposition home or self-care (01) ==
PROVIDERS: Emergency Provider Physician Assistant; PCP Family Medicine
DX: R06.02 Shortness of breath (principal); R53.1 Weakness; R20.2 Paresthesia of skin; T42.6X5A Adverse effect of other antiepileptic and sedative-hypnotic drugs, initial encounter; X58.XXXA Exposure to other specified factors, initial encounter; F17.210 Nicotine dependence, cigarettes, uncomplicated; I10 Essential (primary) hypertension
CPT/HCPCS: 99283; J9999

== ENCOUNTER 2025-06-08 09:54 | Outpatient (CLI) | payer BC, MEDICAID, SELFPAY ==
--- NOTE | 2025-06-08 09:57 | US_ITS ---
WS: [id number] ULTRASOUND BILATERAL BREASTs, limited HISTORY: BREAST LUMP OR MASS COMPARISON: 10/23/2013. TECHNIQUE: 2-D and Doppler. RIGHT breast: Ultrasound directed to the RIGHT breast by the patient in the areas of concern which include 6:00, 12 and 10:00. No masses or distortion identified. LEFT breast: Ultrasound directed to the LEFT breast by the patient in the areas of concern which include 12:00 3:00 and 9:00. No masses or distortion identified. US/US breast BI limited* [id number] IMPRESSION: BI-RADS: 1- Negative FOLLOW-UP: See Report No ultrasound abnormalities within either breast in the areas of interest.
== END 2025-06-08 09:55 | disposition home or self-care (01) ==
LOC: RAD 09:55
PROVIDERS: PCP Family Medicine; Visit Provider Family Medicine
DX: N63.15 Unspecified lump in the right breast, overlapping quadrants (principal); N63.25 Unspecified lump in the left breast, overlapping quadrants
CPT/HCPCS: 76642